=== PATIENT | female | born 1945 | race Caucasian/White ===

== ENCOUNTER → 2018-05-01 10:53 | Outpatient (CLI) | payer MEDICARE, BC, SELFPAY ==
--- NOTE | 2018-05-01 | DI.RAD.S_ITS ---
PROCEDURE: XR TOE RT MIN 2V INDICATIONS: RIGHT SMALL TOE PAIN AFTER TRAUMA TECHNIQUE: 3 views of the 5th toe(s) acquired. COMPARISON: None. FINDINGS: Bones: ? fracture of the fifth middle phalanx. No suspicious bony lesions. Soft tissues: No suspicious soft tissue densities. IMPRESSION: Possible fracture of the fifth middle phalanx. A followup examination is suggested in 7-10 days. Dictated by: Joshua Doll M.D. on 05/01/2018 at 13:07 Approved by: Joshua Doll M.D. on 05/01/2018 at 13:11
== END ==
PROVIDERS: PCP Family Medicine; Visit Provider Family Medicine
DX: M79.674 Pain in right toe(s) (principal)
CPT/HCPCS: 73660

== ENCOUNTER → 2018-05-18 14:14 | Outpatient (CLI) | payer MEDICARE, BC, SELFPAY ==
--- NOTE | 2018-05-18 | DI.RAD.S_ITS ---
This blank DEXA report has been sent in error by the PACS system. The correct and complete report will be forthcoming in 1-2 days. Thank you for your patience and understanding. Dictated by: Gary Yeager M.D. on 05/18/2018 at 15:14 Approved by: Gary Yeager M.D. on 05/18/2018 at 15:14
--- NOTE | 2018-05-18 | DI.RAD.S_ITS ---
PROCEDURE: XR FOOT RT 2V INDICATIONS: 5TH TOE PAIN TECHNIQUE: 3 views of the foot and fifth toe were acquired. COMPARISON: None. FINDINGS: Bones: Mild osteoarthritic changes in forefoot joint are seen more prominent involving first MTP joint. No fracture or dislocation. No gross bony erosive changes are suspicious bony lesion. Soft tissues: No gross soft tissue abnormality is seen. No abnormal calcification. IMPRESSION: Mild forefoot joint osteoarthritis. No fracture or dislocation. No gross bony erosive changes. Dictated by: Gary Yeager M.D. on 05/18/2018 at 15:15 Approved by: Gary Yeager M.D. on 05/18/2018 at 15:16
== END ==
PROVIDERS: PCP Family Medicine; Visit Provider Family Medicine
DX: Z13.820 Encounter for screening for osteoporosis (principal); M81.0 Age-related osteoporosis without current pathological fracture; Z78.0 Asymptomatic menopausal state; M79.674 Pain in right toe(s); M19.071 Primary osteoarthritis, right ankle and foot; Z87.891 Personal history of nicotine dependence
CPT/HCPCS: 73660; 77080

== ENCOUNTER → 2018-06-03 08:49 | Outpatient (CLI) | payer MEDICARE, BC, SELFPAY ==
--- NOTE | 2018-06-03 | DI.MG.S_ITS ---
BILATERAL DIGITAL SCREENING MAMMOGRAM 3D/2D WITH CAD: 06/03/2018 CLINICAL: Routine screening. Family history of breast cancer. Comparison is made to exams dated: 03/16/2017 mammogram, 02/15/2016 mammogram - [facility], and 01/02/2015 mammogram - [facility]. The tissue of both breasts is heterogeneously dense. This may lower the sensitivity of mammography. Current study was also evaluated with a Computer Aided Detection (CAD) system. There is a focal asymmetry in the left breast at 1 o'clock middle depth. No other significant masses, calcifications, or other findings are seen in either breast. IMPRESSION: INCOMPLETE: NEEDS ADDITIONAL IMAGING EVALUATION The focal asymmetry in the left breast is indeterminate. Additional views with possible ultrasound are recommended. This exam was interpreted at Station ID: [id number]. NOTE: For mammograms, a report in lay terms will be sent to the patient. Approximately 15% of breast malignancies will not be visualized mammographically. In the management of a palpable breast mass, a negative mammogram must not discourage biopsy of a clinically suspicious lesion. Electronically Signed By: Meche martinez/ajay:06/04/2018 08:35:31 letter sent: Additional Imaging Needed ACR BI-RADS Category 0: Incomplete 3340F
== END ==
PROVIDERS: PCP Family Medicine; Visit Provider Family Medicine
DX: Z12.31 Encounter for screening mammogram for malignant neoplasm of breast (principal); Z80.3 Family history of malignant neoplasm of breast
CPT/HCPCS: 77063; 77067

== ENCOUNTER → 2018-06-23 12:56 | Outpatient (CLI) | payer MEDICARE, BC, SELFPAY ==
--- NOTE | 2018-06-23 | DI.MG.S_ITS ---
UNILATERAL LEFT DIGITAL DIAGNOSTIC MAMMOGRAM 3D/2D WITH ADDITIONAL VIEWS: 06/23/2018 CLINICAL: Additional evaluation requested from prior study. Comparison is made to exams dated: 06/03/2018 mammogram, 03/16/2017 mammogram, and 02/15/2016 mammogram - [facility]. The tissue of left breast is heterogeneously dense. This may lower the sensitivity of mammography. The focal asymmetry in the left breast at 1 o'clock posterior depth is not seen in additional views. No other significant masses or calcifications are seen in the breast. IMPRESSION: There is no mammographic evidence of malignancy. A 1 year screening mammogram is recommended. This exam was interpreted at Station ID: [id number]. NOTE: For mammograms, a report in lay terms will be sent to the patient. Approximately 15% of breast malignancies will not be visualized mammographically. In the management of a palpable breast mass, a negative mammogram must not discourage biopsy of a clinically suspicious lesion. Electronically Signed By: Meche Cleveland M.D. lk/:06/23/2018 13:52:19 letter sent: Normal Exam ACR BI-RADS Category 2: Benign Finding(s) 3342F
== END ==
PROVIDERS: PCP Family Medicine; Visit Provider Family Medicine
DX: R92.8 Other abnormal and inconclusive findings on diagnostic imaging of breast (principal)
CPT/HCPCS: 77065; G0279

== ENCOUNTER → 2018-08-25 12:35 | Outpatient (CLI) | payer MEDICARE, BC, SELFPAY ==
--- NOTE | 2018-08-25 | DI.RAD.S_ITS ---
PROCEDURE: XR LUMBAR SPINE 2-3V INDICATIONS: lOW BACK PAIN TECHNIQUE: 3 views of the lumbar spine were acquired. COMPARISON: [facility], , L-SPINE 2-3 VIEWS, 05/01/2012, 10:01. FINDINGS: Bones: 5 [id number] vertebrae are present. There is normal bony alignment. No vertebral body compression fractures. No suspicious bony lesions. There is mild to moderate facet sclerosis in the lower lumbar spine. Soft tissues: Overlying bowel gas pattern is normal. No suspicious soft tissue calcifications. IMPRESSION: Mild degenerative change. Dictated by: Meche Cleveland M.D. on 08/25/2018 at 13:46 Approved by: Meche Cleveland M.D. on 08/25/2018 at 13:46
== END ==
PROVIDERS: PCP Family Medicine; Visit Provider Family Medicine
DX: M54.5 Low back pain (principal); M47.816 Spondylosis without myelopathy or radiculopathy, lumbar region
CPT/HCPCS: 72100

== ENCOUNTER 2018-12-27 12:06 | Emergency (ER) | payer MEDICARE, BC, SELFPAY ==
[2018-12-27 12:12] VITALS: BP 132/70; PULSE 68; RESP 13; TEMP 36.2; O2SAT 99
[2018-12-27 12:25] VITALS: BP 138/75; PULSE 69; RESP 17; O2SAT 97
--- NOTE | 2018-12-27 12:40 | ED.BACK ---
HPI - Back Pain/Injury <VALERIE Aponte - Last Filed: 12/27/18 13:37> General Chief Complaint: Back Pain/Injury Stated Complaint: Hurt lower back down both legs Time Seen by Provider: 12/27/18 12:15 Source: patient Mode of arrival: ambulatory Limitations: no limitations History of Present Illness HPI Narrative: 73-year-old female with a history of sacral fractures 20 years ago, presents emergency department complaining of dull aching lower back pain that radiates down both legs bilaterally. She states the pain is worse when she sits for a prolonged period of time, slightly relieved when she walks hunched over, has been taking 400 mg of ibuprofen every 6 hours for the past 2 and half days with relief of pain up until today. Patient stated this all started when she was mowing her lawn on a riding lawnmower, she states that she has about a care of property that she was attending to. Also states the pain is worse in the morning. Denies any numbness or tingling down her legs, leg pain, limb weakness, loss of bowel or bladder control, saddle paresthesias, fevers or chills, or recent trauma. MD Complaint: back pain Onset (ago): day(s) Duration: intermittent Similar Symptoms Previously: No Location: thoracic spine and sacrum Severity: moderate Quality: dull and aching Radiation: left leg and right leg Relieving factors: walking Exacerbating factors: sitting upright Associated symptoms: denies other symptoms Related Data Home Medications Medication Instructions Recorded Confirmed estradiol-norethindrone acet 1 tab PO DAILY 12/27/18 12/27/18 ibandronate 150 mg PO QMONTH 12/27/18 12/27/18 trazodone 50 - 75 mg PO BEDTIME PRN 12/27/18 12/27/18 Allergies Allergy/AdvReac Type Severity Reaction Status Date / Time bacitracin [BACITRACIN] Allergy Mild Unverified 09/23/17 11:57 Review of Systems <VALERIE Aponte - Last Filed: 12/27/18 13:37> Review of Systems REVIEW OF SYSTEMS: GENERAL: Denies fever or chills. HENT: No head trauma. EYES: No double vision or vision loss. CARDIOVASCULAR: No chest pain or syncope. RESPIRATORY: No shortness of breath or cough. GASTROINTESTINAL: No nausea, vomiting, diarrhea, or constipation. GENITOURINARY: No loss of bowel or bladder control. MUSCULOSKELETAL: Complains of back pain, see HPI. INTEGUMENTARY: No rash, lesions, or pruritus. NEURO: No numbness, tingling. PSYCH: No behavior or mood changes. PFSH <VALERIE Aponte - Last Filed: 12/27/18 13:37> Surgical History History of third molar tooth extraction Status post tonsillectomy and adenoidectomy Social History Smoking Status: Never smoker Social History Smoking Status: Never smoker Exam <VALERIE Aponte - Last Filed: 12/27/18 13:37> Initial Vital Signs Initial Vital Signs: Vital Signs Temperature 97.2 F L 12/27/18 12:12 Pulse Rate 68 12/27/18 12:12 Respiratory Rate 13 12/27/18 12:12 Blood Pressure 132/70 12/27/18 12:12 Pulse Oximetry 99 12/27/18 12:12 PHYSICAL EXAMINATION: GENERAL: Well groomed, alert, and cooperative. Answers questions promptly and appropriately. Vital signs noted. HENT: Normocephalic, atraumatic. EYES: Symmetrical, sclera white, no periorbital swelling. CARDIOVASCULAR: S1 and S2 sounds normal. Regular rate and rhythm, no murmurs, clicks, or bruits. No pedal edema. RESPIRATORY: Normal respiratory rate, trachea midline, airway patent. No stridor, nasal flaring or accessory muscle use. MUSCULOSKELETAL: Normal gait and coordination. Equal tone and mass bilaterally. No spinal deformities, slight pain to mid thoracic and sacral spine with palpation. Full range of motion of spine, full equal strength of extremities bilaterally. Able to sit and stand without difficulty. No erythema or ecchymosis present. Negative straight leg test. EXTREMITIES: CMS intact. No pedal edema. SKIN: Warm, dry, soft, appropriate color for ethnicity. No lesions, rashes, or wounds. NEURO: Alert and Oriented X 3. No sensory deficits. PSYCH: Appropriate affect and mood. <Ernie Juan DO - Last Filed: 12/27/18 13:49> Initial Vital Signs Initial Vital Signs: Vital Signs Temperature 97.2 F L 12/27/18 12:12 Pulse Rate 68 12/27/18 12:12 Respiratory Rate 13 12/27/18 12:12 Blood Pressure 132/70 12/27/18 12:12 Pulse Oximetry 99 12/27/18 12:12 Course <VALERIE Aponte - Last Filed: 12/27/18 13:37> Course Narrative: Patient states she has an appointment with her primary care provider in the next hour and a half. She was given copies of her x-rays to bring your primary care provider. Results were given of x-rays, patient under said follow-up plan. Orders Ordered: ED Orders 12/27/18 12:38 XR lumbar spine 2-3V Stat XR thoracic spine 3V Stat Discontinued Medications Ketorolac Tromethamine (Toradol) 30 mg IM NOW ONE Stop: 12/27/18 12:40 Last Admin: 12/27/18 12:55 Dose: 30 mg Consultations Consultation #1: Patient staffed with Dr. Juan Vital Signs - 8 hr 12/27/18 12:12 12/27/18 12:25 12/27/18 13:42 Temperature 97.2 F L Pulse Rate 68 69 72 Respiratory Rate 13 17 18 Blood Pressure 132/70 121/76 Blood Pressure [Right Arm] 138/75 Pulse Oximetry 99 97 99 <Ernie Juan DO - Last Filed: 12/27/18 13:49> Orders Ordered: ED Orders 12/27/18 12:38 XR lumbar spine 2-3V Stat XR thoracic spine 3V Stat Discontinued Medications Ketorolac Tromethamine (Toradol) 30 mg IM NOW ONE Stop: 12/27/18 12:40 Last Admin: 12/27/18 12:55 Dose: 30 mg Vital Signs - 8 hr 12/27/18 12:12 12/27/18 12:25 12/27/18 13:42 Temperature 97.2 F L Pulse Rate 68 69 72 Respiratory Rate 13 17 18 Blood Pressure 132/70 121/76 Blood Pressure [Right Arm] 138/75 Pulse Oximetry 99 97 99 MDM - Back Pain/Injury <VALERIE Aponte - Last Filed: 12/27/18 13:37> Medical Records Attestation: I reviewed the patient's medical records. Imaging Data Lumbar XR: Radiologist's impression: [address] [address] XRay Report Signed Patient: Vilma Jones [facility]#: [id number] : 6Acct:[id number] Age/Sex: 73 / FDate of Service: 12/27/18 Loc: ED Accession Number: [id number] Procedure: XR lumbar spine 2-3V Ordering Provider: Shireen Tesfaye PROCEDURE: XR LUMBAR SPINE 2-3V INDICATIONS: Spinal pain with palpitations TECHNIQUE: 3 views of the lumbar spine were acquired. COMPARISON: [facility], , XR LUMBAR SPINE 2-3V, 08/25/2018, 12:49. FINDINGS: Bones: 5 nonrib-bearing lumbar vertebral bodies. No lytic or blastic bony lesions. No compression fractures Normal alignment. Mild lower lumbar facet arthropathy. Soft tissues: Overlying bowel gas pattern is normal. No suspicious soft tissue calcifications. IMPRESSION: No evidence acute bony abnormality of the lumbar spine. Mild lower lumbar facet arthropathy. Dictated by: Naresh Real M.D. on 12/27/2018 at 13:07 Approved by: Naresh Real M.D. on 12/27/2018 at 13:08 Thorasic XR: Radiologist's impression: [address] [address] XRay Report Signed Patient: Vilma Jones [facility]#: [id number] : 6At:[id number] Age/Sex: 73 / FDate of Service: 12/27/18 Loc: ED Accession Number: [id number] Procedure: XR thoracic spine 3V Ordering Provider: Shireen Tesfaye PROCEDURE: XR THORACIC SPINE 3V INDICATIONS: Spinal pain with palpitations TECHNIQUE: 3 views of the thoracic spine were acquired. COMPARISON: None. FINDINGS: Bones: No fractures or dislocations. No suspicious bony lesions. Mild chronic T5 and T10 compressions. 12 pairs of ribs are noted, and appear intact where visualized. Soft tissues: No paravertebral stripe thickening. IMPRESSION: Mild chronic T5 and T10 compressions. Otherwise unremarkable thoracic spine plain films. Dictated by: Naresh Real M.D. on 12/27/2018 at 13:08 Approved by: Naresh Real M.D. on 12/27/2018 at 13:09 [facility] Narrative Medical decision making narrative: Less likely fracture due to negative x-ray in patient's ability to ambulate without severe pain, as well as mechanism of injury. Sciatica versus spinal disc involvement due to description of pain, x-ray films, and history of facet arthritic change, as well as history of chronic fractures. Encouraged patient to follow up with her primary care provider for further testing if symptoms continue. Strict return precautions given for any changes or saddle paresthesias. Very little concern for cauda equina or infection as there are no sensory changes, no weakness, no other systemic complaints (he fever, chills). Discharge Plan Departure Patient Disposition: Home Clinical Impression: Back pain Qualifiers: Back pain location: low back pain Chronicity: acute Back pain laterality: midline Sciatica presence: unspecified whether sciatica present Qualified Code(s): M54.5 - Low back pain Discharge Date/Time: 12/27/18 13:46 Interventions: ED Discharge Assessment Last Done: 12/27/18 13:42 Instructions: DI for Low Back Pain Activity Restrictions/Additional Instructions: Thank you for entrusting me with your care today. As discussed, your x-rays are negative for new fractures. It did reveal that your chronic fractures are not changed. Please follow up with your primary care provider to discuss further imaging if needed and for physical therapy. Return to the emergency department if you develops significant change in pain, loss of bowel or bladder control, fevers, numbness or tingling in her pelvic area, chest pain, or shortness of breath. Prescriptions: No Action trazodone 50 mg tablet 50 - 75 mg PO BEDTIME PRN (Reason: depression) RF: 0 ibandronate 150 mg tablet 150 mg PO QMONTH RF: 0 estradiol-norethindrone acet 0.5-0.1 mg tablet 1 tab PO DAILY RF: 0 Referrals: Joslyn Garner MD [Primary Care Provider] - <Ernie Juan DO - Last Filed: 12/27/18 13:49> Cosign ED Attending [place] Attestation: I was available for consultation during this patient's emergency department encounter
--- NOTE | 2018-12-27 12:43 | ED_ITS ---
HPI - Back Pain/Injury <VALERIE Aponte - Last Filed: 12/27/18 13:37> General Chief Complaint: Back Pain/Injury Stated Complaint: Hurt lower back down both legs Time Seen by Provider: 12/27/18 12:15 Source: patient Mode of arrival: ambulatory Limitations: no limitations History of Present Illness HPI Narrative: 73-year-old female with a history of sacral fractures 20 years ago, presents emergency department complaining of dull aching lower back pain that radiates down both legs bilaterally. She states the pain is worse when she sits for a prolonged period of time, slightly relieved when she walks hunched over, has been taking 400 mg of ibuprofen every 6 hours for the past 2 and half days with relief of pain up until today. Patient stated this all started when she was mowing her lawn on a riding lawnmower, she states that she has about a care of property that she was attending to. Also states the pain is worse in the morning. Denies any numbness or tingling down her legs, leg pain, limb weakness, loss of bowel or bladder control, saddle paresthesias, fevers or chills, or recent trauma. MD Complaint: back pain Onset (ago): day(s) Duration: intermittent Similar Symptoms Previously: No Location: thoracic spine and sacrum Severity: moderate Quality: dull and aching Radiation: left leg and right leg Relieving factors: walking Exacerbating factors: sitting upright Associated symptoms: denies other symptoms Related Data Home Medications Medication Instructions Recorded Confirmed estradiol-norethindrone acet 1 tab PO DAILY 12/27/18 12/27/18 ibandronate 150 mg PO QMONTH 12/27/18 12/27/18 trazodone 50 - 75 mg PO BEDTIME PRN 12/27/18 12/27/18 Allergies Allergy/AdvReac Type Severity Reaction Status Date / Time bacitracin [BACITRACIN] Allergy Mild Unverified 09/23/17 11:57 Review of Systems <VALERIE Aponte - Last Filed: 12/27/18 13:37> Review of Systems REVIEW OF SYSTEMS: GENERAL: Denies fever or chills. HENT: No head trauma. EYES: No double vision or vision loss. CARDIOVASCULAR: No chest pain or syncope. RESPIRATORY: No shortness of breath or cough. GASTROINTESTINAL: No nausea, vomiting, diarrhea, or constipation. GENITOURINARY: No loss of bowel or bladder control. MUSCULOSKELETAL: Complains of back pain, see HPI. INTEGUMENTARY: No rash, lesions, or pruritus. NEURO: No numbness, tingling. PSYCH: No behavior or mood changes. PFSH <VALERIE Aponte - Last Filed: 12/27/18 13:37> Surgical History History of third molar tooth extraction Status post tonsillectomy and adenoidectomy Social History Smoking Status: Never smoker Social History Smoking Status: Never smoker Exam <VALERIE Aponte - Last Filed: 12/27/18 13:37> Initial Vital Signs Initial Vital Signs: Vital Signs Temperature 97.2 F L 12/27/18 12:12 Pulse Rate 68 12/27/18 12:12 Respiratory Rate 13 12/27/18 12:12 Blood Pressure 132/70 12/27/18 12:12 Pulse Oximetry 99 12/27/18 12:12 PHYSICAL EXAMINATION: GENERAL: Well groomed, alert, and cooperative. Answers questions promptly and appropriately. Vital signs noted. HENT: Normocephalic, atraumatic. EYES: Symmetrical, sclera white, no periorbital swelling. CARDIOVASCULAR: S1 and S2 sounds normal. Regular rate and rhythm, no murmurs, clicks, or bruits. No pedal edema. RESPIRATORY: Normal respiratory rate, trachea midline, airway patent. No stridor, nasal flaring or accessory muscle use. MUSCULOSKELETAL: Normal gait and coordination. Equal tone and mass bilaterally. No spinal deformities, slight pain to mid thoracic and sacral spine with palpation. Full range of motion of spine, full equal strength of extremities bilaterally. Able to sit and stand without difficulty. No erythema or ecchymosis present. Negative straight leg test. EXTREMITIES: CMS intact. No pedal edema. SKIN: Warm, dry, soft, appropriate color for ethnicity. No lesions, rashes, or wounds. NEURO: Alert and Oriented X 3. No sensory deficits. PSYCH: Appropriate affect and mood. <Ernie Juan DO - Last Filed: 12/27/18 13:49> Initial Vital Signs Initial Vital Signs: Vital Signs Temperature 97.2 F L 12/27/18 12:12 Pulse Rate 68 12/27/18 12:12 Respiratory Rate 13 12/27/18 12:12 Blood Pressure 132/70 12/27/18 12:12 Pulse Oximetry 99 12/27/18 12:12 Course <VALERIE Aponte - Last Filed: 12/27/18 13:37> Course Narrative: Patient states she has an appointment with her primary care provider in the next hour and a half. She was given copies of her x-rays to bring your primary care provider. Results were given of x-rays, patient under said follow-up plan. Orders Ordered: ED Orders 12/27/18 12:38 XR lumbar spine 2-3V Stat XR thoracic spine 3V Stat Discontinued Medications Ketorolac Tromethamine (Toradol) 30 mg IM NOW ONE Stop: 12/27/18 12:40 Last Admin: 12/27/18 12:55 Dose: 30 mg Consultations Consultation #1: Patient staffed with Dr. Juan Vital Signs - 8 hr 12/27/18 12:12 12/27/18 12:25 12/27/18 13:42 Temperature 97.2 F L Pulse Rate 68 69 72 Respiratory Rate 13 17 18 Blood Pressure 132/70 121/76 Blood Pressure [Right Arm] 138/75 Pulse Oximetry 99 97 99 <Ernie Juan DO - Last Filed: 12/27/18 13:49> Orders Ordered: ED Orders 12/27/18 12:38 XR lumbar spine 2-3V Stat XR thoracic spine 3V Stat Discontinued Medications Ketorolac Tromethamine (Toradol) 30 mg IM NOW ONE Stop: 12/27/18 12:40 Last Admin: 12/27/18 12:55 Dose: 30 mg Vital Signs - 8 hr 12/27/18 12:12 12/27/18 12:25 12/27/18 13:42 Temperature 97.2 F L Pulse Rate 68 69 72 Respiratory Rate 13 17 18 Blood Pressure 132/70 121/76 Blood Pressure [Right Arm] 138/75 Pulse Oximetry 99 97 99 MDM - Back Pain/Injury <VALERIE Aponte - Last Filed: 12/27/18 13:37> Medical Records Attestation: I reviewed the patient's medical records. Imaging Data Lumbar XR: Radiologist's impression: [address] [address] XRay Report Signed Patient: Vilma Jones [facility]#: [id number] : 6Acct:[id number] Age/Sex: 73 / FDate of Service: 12/27/18 Loc: ED Accession Number: [id number] Procedure: XR lumbar spine 2-3V Ordering Provider: Shireen Tesfaye PROCEDURE: XR LUMBAR SPINE 2-3V INDICATIONS: Spinal pain with palpitations TECHNIQUE: 3 views of the lumbar spine were acquired. COMPARISON: [facility], , XR LUMBAR SPINE 2-3V, 08/25/2018, 12:49. FINDINGS: Bones: 5 nonrib-bearing lumbar vertebral bodies. No lytic or blastic bony lesions. No compression fractures Normal alignment. Mild lower lumbar facet arthropathy. Soft tissues: Overlying bowel gas pattern is normal. No suspicious soft tissue calcifications. IMPRESSION: No evidence acute bony abnormality of the lumbar spine. Mild lower lumbar facet arthropathy. Dictated by: Naresh Real M.D. on 12/27/2018 at 13:07 Approved by: Naresh Real M.D. on 12/27/2018 at 13:08 Thorasic XR: Radiologist's impression: [address] [address] XRay Report Signed Patient: Vilma Jones [facility]#: [id number] : 6At:[id number] Age/Sex: 73 / FDate of Service: 12/27/18 Loc: ED Accession Number: [id number] Procedure: XR thoracic spine 3V Ordering Provider: Shireen Tesfaye PROCEDURE: XR THORACIC SPINE 3V INDICATIONS: Spinal pain with palpitations TECHNIQUE: 3 views of the thoracic spine were acquired. COMPARISON: None. FINDINGS: Bones: No fractures or dislocations. No suspicious bony lesions. Mild chronic T5 and T10 compressions. 12 pairs of ribs are noted, and appear intact where visualized. Soft tissues: No paravertebral stripe thickening. IMPRESSION: Mild chronic T5 and T10 compressions. Otherwise unremarkable thoracic spine plain films. Dictated by: Naresh Real M.D. on 12/27/2018 at 13:08 Approved by: Naresh Real M.D. on 12/27/2018 at 13:09 [facility] Narrative Medical decision making narrative: Less likely fracture due to negative x-ray in patient's ability to ambulate without severe pain, as well as mechanism of injury. Sciatica versus spinal disc involvement due to description of pain, x- ray films, and history of facet arthritic change, as well as history of chronic fractures. Encouraged patient to follow up with her primary care provider for further testing if symptoms continue. Strict return precautions given for any changes or saddle paresthesias. Very little concern for cauda equina or infection as there are no sensory changes, no weakness, no other systemic complaints (he fever, chills). Discharge Plan Departure Patient Disposition: Home Clinical Impression: Back pain Qualifiers: Back pain location: low back pain Chronicity: acute Back pain laterality: midline Sciatica presence: unspecified whether sciatica present Qualified Code(s): M54.5 - Low back pain Discharge Date/Time: 12/27/18 13:46 Interventions: ED Discharge Assessment Last Done: 12/27/18 13:42 Instructions: DI for Low Back Pain Activity Restrictions/Additional Instructions: Thank you for entrusting me with your care today. As discussed, your x-rays are negative for new fractures. It did reveal that your chronic fractures are not changed. Please follow up with your primary care provider to discuss further imaging if needed and for physical therapy. Return to the emergency department if you develops significant change in pain, loss of bowel or bladder control, fevers, numbness or tingling in her pelvic area, chest pain, or shortness of breath. Prescriptions: No Action trazodone 50 mg tablet 50 - 75 mg PO BEDTIME PRN (Reason: depression) RF: 0 ibandronate 150 mg tablet 150 mg PO QMONTH RF: 0 estradiol-norethindrone acet 0.5-0.1 mg tablet 1 tab PO DAILY RF: 0 Referrals: Joslyn Garner MD [Primary Care Provider] - <Ernie Juan DO - Last Filed: 12/27/18 13:49> Cosign ED Attending [place] Attestation: I was available for consultation during this patient's emergency department encounter
[2018-12-27] MEDS: KETOROLAC 60 MG/2 ML VIAL 30 MG IM (12:55)
[2018-12-27 13:42] VITALS: BP 121/76; PULSE 72; RESP 18; O2SAT 99
== END 2018-12-27 13:46 | disposition home or self-care (01) ==
PROVIDERS: Emergency Provider Nurse Practitioner; PCP Family Medicine
DX: M54.5 Low back pain (principal)
CPT/HCPCS: 72072; 72100; 96372; 99282; 99283; J1885

== ENCOUNTER → 2019-01-06 17:25 | Outpatient (CLI) | payer MEDICARE, BC, SELFPAY ==
--- NOTE | 2019-01-06 | DI.MRI.S_ITS ---
PROCEDURE: MR LUMBAR SPINE WO CON INDICATIONS: LUMBAR RADICULOPATHY TECHNIQUE: Noncontrast sagittal T1 spin echo and T2 fast echo, sagittal STIR, axial T1 and T2 fast spin echo through the lumbar spine. In cases with scoliosis, additional coronal T2 fast spin echo may be performed. COMPARISON: None. FINDINGS: Image quality: Excellent. Alignment and Curvature: There is normal bony alignment. Bone Marrow: Marrow is of normal overall signal. No acute vertebral body compression fractures. Spinal Cord: Conus medullaris terminates at the L1 level. Visualized cord demonstrates normal signal and size. Paraspinous Soft Tissues: No paravertebral masses. L1-L2: Normal appearance. L2-L3: Normal appearance. L3-L4: Normal appearance. L4-L5: Normal appearance except for a minimal degree of degenerative disc height reduction and slight disc desiccation. On axial imaging at this level there is moderately severe facet osteoarthritis and moderate ligamentum flavum hypertrophy. Posterior broad-based disc bulging is mild but slightly greater on the left than the right. Ligamentum flavum hypertrophy contributes to the presence of concentric spinal stenosis.. L5-S1: Normal appearance except for minimal degenerative disc height reduction and desiccation.. IMPRESSION: Overall there is only a relatively mild degree of degenerative disc disease and facet osteoarthritis, without disc herniation. The maxillary of spinal stenosis is centered at L4-L5 where a combination of disc disease and facet osteoarthritis combines to produce spinal and foraminal stenosis slightly greater on the left than the right. . Dictated by: Giovanny Morin M.D. on 01/07/2019 at 13:15 Approved by: Giovanny Morin M.D. on 01/07/2019 at 13:19
== END ==
PROVIDERS: Family Provider Family Medicine; PCP Family Medicine; Visit Provider Family Medicine
DX: M51.36 Other intervertebral disc degeneration, lumbar region (principal); M54.16 Radiculopathy, lumbar region; M48.061 Spinal stenosis, lumbar region without neurogenic claudication
CPT/HCPCS: 72148

== ENCOUNTER → 2019-07-22 12:30 | Outpatient (CLI) | payer MEDICARE, BC, SELFPAY ==
--- NOTE | 2019-07-22 | DI.MG.S_ITS ---
BILATERAL DIGITAL SCREENING MAMMOGRAM 3D/2D WITH CAD: 07/22/2019 CLINICAL: Routine screening. Family history of breast cancer. Comparison is made to exams dated: 06/03/2018 mammogram, 03/16/2017 mammogram, and 02/15/2016 mammogram - [facility]. The tissue of both breasts is heterogeneously dense. This may lower the sensitivity of mammography. Current study was also evaluated with a Computer Aided Detection (CAD) system. No significant masses, calcifications, or other findings are seen in either breast. There has been no significant interval change. IMPRESSION: NEGATIVE There is no mammographic evidence of malignancy. A 1 year screening mammogram is recommended. This exam was interpreted at Station ID: [id number]. NOTE: For mammograms, a report in lay terms will be sent to the patient. Approximately 15% of breast malignancies will not be visualized mammographically. In the management of a palpable breast mass, a negative mammogram must not discourage biopsy of a clinically suspicious lesion. Electronically Signed By: Meche martinez/ajay:07/22/2019 13:28:18 letter sent: Normal Exam ACR BI-RADS Category 1: Negative [id number]
== END ==
PROVIDERS: Family Provider Family Medicine; PCP Family Medicine; Referring Provider Family Medicine; Visit Provider Family Medicine
DX: Z12.31 Encounter for screening mammogram for malignant neoplasm of breast (principal); Z80.3 Family history of malignant neoplasm of breast; M81.0 Age-related osteoporosis without current pathological fracture; Z78.0 Asymptomatic menopausal state; Z87.891 Personal history of nicotine dependence
CPT/HCPCS: 77063; 77067; 77080

== ENCOUNTER 2020-01-27 13:28 | Emergency (ER) | payer MEDICARE, BC, SELFPAY ==
[2020-01-27 14:11] VITALS: BP 121/85; PULSE 86; RESP 18; TEMP 36.6; O2SAT 97; BMI 23.3
[2020-01-27] MEDS: TET,DIPH,PERTUSS(ACELL),VAC/PF 0.5 ML SYRINGE IM (15:35)
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
== END 2020-01-27 16:56 | disposition home or self-care (01) ==
PROVIDERS: Emergency Provider Nurse Practitioner Family; Family Provider Family Medicine; PCP Family Medicine
DX: S51.811A Laceration without foreign body of right forearm, initial encounter (principal); S50.811A Abrasion of right forearm, initial encounter; V18.2XXA Unspecified pedal cyclist injured in noncollision transport accident in nontraffic accident, initial encounter; Z23 Encounter for immunization
CPT/HCPCS: 90471; 99283; 90715

== ENCOUNTER → 2020-07-12 09:12 | Outpatient (CLI) | payer MEDICARE, BC, SELFPAY ==
[2020-07-12] MEDS: COVID-19 VACC #1, MRNA(MOD) 100 MCG/0.5 ML VIAL IM (09:19)
== END ==
PROVIDERS: Family Provider Family Medicine; PCP Family Medicine; Visit Provider Internal Medicine
DX: Z23 Encounter for immunization (principal)
CPT/HCPCS: 0011A; 91301

== ENCOUNTER → 2020-08-09 08:55 | Outpatient (CLI) | payer MEDICARE, BC, SELFPAY ==
[2020-08-09] MEDS: COVID-19 VACC #2, MRNA(MOD) 100 MCG/0.5 ML VIAL IM (09:01)
== END ==
PROVIDERS: Family Provider Family Medicine; PCP Family Medicine; Visit Provider Internal Medicine
DX: Z23 Encounter for immunization (principal)
CPT/HCPCS: 0012A; 91301

== ENCOUNTER → 2020-10-04 16:07 | Outpatient (CLI) | payer MEDICARE, BC, SELFPAY ==
--- NOTE | 2020-10-04 | DI.RAD.S_ITS ---
PROCEDURE: XR CERVICAL SPINE 2V OR 3V INDICATIONS: NECK PAIN TECHNIQUE: 3 view(s) of the cervical spine were acquired. COMPARISON: None. FINDINGS: Bones: No fractures or dislocations to the T1 level. The lateral masses of C1 appear intact on the odontoid view. No suspicious bony lesions. Loss of lordosis which could be related to muscle spasm, rigidity or simply positional. Grade 1 retrolisthesis C4-C5 and C5-C6. Multilevel disc degeneration, most notably and moderate from the C3 through the C6-C7 level. Mild multilevel facet joint arthropathy and uncovertebral hypertrophy. Soft tissues: No prevertebral soft tissue swelling. IMPRESSION: Loss of lordosis and multilevel spondylosis. Dictated by: Alonzo [place] [facility] Interpreted: Naresh Real MD on 10/05/2020 at 8:54 Approved by: Naresh Real M.D. on 10/05/2020 at 10:21
== END ==
PROVIDERS: Family Provider Family Medicine; PCP Family Medicine; Referring Provider Family Medicine; Visit Provider Family Medicine
DX: M54.2 Cervicalgia (principal); M47.812 Spondylosis without myelopathy or radiculopathy, cervical region; S46.819A Strain of other muscles, fascia and tendons at shoulder and upper arm level, unspecified arm, initial encounter
CPT/HCPCS: 72040

== ENCOUNTER → 2020-10-10 10:09 | Outpatient (CLI) | payer MEDICARE, BC, SELFPAY ==
--- NOTE | 2020-10-10 10:12 | DI.MG.S_ITS ---
BILATERAL DIGITAL SCREENING MAMMOGRAM 3D/2D WITH CAD: 10/10/2020 CLINICAL: Routine screening. Family history of breast cancer. Comparison is made to exams dated: 06/03/2018 mammogram, 03/16/2017 mammogram, and 02/15/2016 mammogram - [facility]. The tissue of both breasts is heterogeneously dense. This may lower the sensitivity of mammography. Current study was also evaluated with a Computer Aided Detection (CAD) system. There are grouped calcifications in the right breast which have not significantly changed. No significant masses, calcifications, or other findings are seen in either breast. There has been no significant interval change. IMPRESSION: BENIGN There is no mammographic evidence of malignancy. A 1 year screening mammogram is recommended. This exam was interpreted at Station ID: [id number]. NOTE: For mammograms, a report in lay terms will be sent to the patient. Approximately 15% of breast malignancies will not be visualized mammographically. In the management of a palpable breast mass, a negative mammogram must not discourage biopsy of a clinically suspicious lesion. Electronically Signed By: Law Rivera M.D. aty/:10/10/2020 10:33:33 letter sent: Normal Exam ACR BI-RADS Category 2: Benign Finding(s) 3342F
== END ==
PROVIDERS: Family Provider Family Medicine; PCP Family Medicine; Referring Provider Family Medicine; Visit Provider Family Medicine
DX: Z12.31 Encounter for screening mammogram for malignant neoplasm of breast (principal)
CPT/HCPCS: 77063; 77067

== ENCOUNTER → 2020-12-06 13:28 | Outpatient (CLI) | payer MEDICARE, BC, SELFPAY ==
--- NOTE | 2020-12-06 | DI.RAD.S_ITS ---
PROCEDURE: XR LUMBAR SPINE MIN 4V INDICATIONS: BACK PAIN TECHNIQUE: 5 views of the lumbar spine acquired, including flexion and extension views. COMPARISON: [facility], CR, XR LUMBAR SPINE 2-3V, 12/27/2018, 12:39. FINDINGS: Bones: 5 nonrib-bearing vertebrae are present. Trace multilevel retrolisthesis and grade 1 spondylolisthesis L4-L5. There is moderate L5-S1 disc degeneration. Moderate L4-L5 and L5-S1 facet joint arthropathy. Bones are osteopenic. No vertebral body compression fractures. No suspicious bony lesions. Soft tissues: Overlying bowel gas pattern is normal. No suspicious soft tissue calcifications. IMPRESSION: Multilevel spondylosis and diffuse osteopenia. Dictated by: Alonzo Wellington RR Interpreted: Giovanny Morin MD on 12/06/2020 at 13:49 Transcribed by: XANDER on 12/06/2020 at 13:50 Approved by: Giovanny Morin M.D. on 12/07/2020 at 9:32
== END ==
PROVIDERS: Family Provider Family Medicine; PCP Family Medicine; Referring Provider Physical Medicine & Rehabilitation; Visit Provider Physical Medicine & Rehabilitation
DX: M54.9 Dorsalgia, unspecified (principal); M47.816 Spondylosis without myelopathy or radiculopathy, lumbar region; M47.817 Spondylosis without myelopathy or radiculopathy, lumbosacral region; M85.88 Other specified disorders of bone density and structure, other site
CPT/HCPCS: 72110

== ENCOUNTER → 2020-12-31 09:49 | Outpatient (CLI) | payer MEDICARE, BC, SELFPAY ==
[2020-12-31 15:58] LABS: COVID19 -Nasal RAPID Negative (Negative)
== END ==
PROVIDERS: Family Provider Family Medicine; PCP Family Medicine; Visit Provider Physical Medicine & Rehabilitation
DX: Z20.822 Contact with and (suspected) exposure to COVID-19 (principal)
CPT/HCPCS: 87635; C9803

== ENCOUNTER 2021-01-01 08:06 | Outpatient (CLI) | payer MEDICARE, BC, SELFPAY ==
--- NOTE | 2021-01-01 08:08 | DI.RAD.S_ITS ---
PROCEDURE: PAIN L INTERLAMINAR/CAUDAL INJ INDICATIONS: SPONDYLOSIS COMPARISON: [facility], CR, XR LUMBAR SPINE MIN 4V, 12/06/2020, 13:27. FINDINGS: Fluoroscopic spot filming was performed to verify placement of a spinal needle at the L4-L5 level, as labeled on the films. Appropriate location of the needle tip was confirmed by injection of iodinated contrast. IMPRESSION: Intraprocedural examination within normal limits. Dictated by: Lizandro Tinajero M.D. on 01/01/2021 at 10:17 Approved by: Lizandro Tinajero M.D. on 01/01/2021 at 10:17
[2021-01-01 08:40] VITALS: BP 134/67; PULSE 68; RESP 15; TEMP 36.4; O2SAT 98
[2021-01-01 09:44] VITALS: BP 134/64; PULSE 14; RESP 12; O2SAT 100
[2021-01-01 09:53] VITALS: BP 134/64; PULSE 66; RESP 14; O2SAT 100
--- NOTE | 2021-01-01 09:57 | P.PCN_ITS ---
Date/Time/Diagnoses Date of procedure: 01/01/21 Time of procedure: 09:57 Pre-procedure diagnosis: 1. HNP WITH RADICULAR FEATURES, 2. MULTILEVEL CENTRAL STENOSIS, Post-procedure diagnosis: same Procedure Notes Procedure: 1. FLUOROSCOPICALLY GUIDED CONTRAST CONTROLLED INTERLAMINAR EPIDURAL STEROID INJECTION -L4/5 Indications: Vilma is referred by Dr. Garner for treatment of Bilateral Foraminal Stenosis R>L LE symptoms. Physician: Yaya Morgan Total Fluoroscopy time (seconds): 5 Total sedation minutes: 8 Complications: none Procedure in detail & Post-procedure care: FINDINGS Multilevel Central Spinal Stenosis with Nerve Root Compression DESCRIPTION OF PROCEDURE Fluoroscopically guided, contrast-controlled L4/5 translaminar epidural steroid injection. Following review of allergy and review of potential side effects and complications, including, but not necessarily limited to, infection, allergic reaction, local tissue breakdown, temporary as well as permanent nerve injury, paralysis, stroke and possible , the patient indicated that the patient understood and agreed to proceed. An informed consent document was signed by the patient, witnessed by a nurse, and placed in the patient's chart. Additionally, other treatment options including modalities, medications, and physical therapy were reviewed with the patient. After review of previous anaesthesic history and IV conscious sedation the patient was deemed safe to proceed with today?s procedure with IV conscious sedation as ASA class II designation. Safety time-out was performed to confirm patient ID, procedure to be performed and site of procedure. IV sedation was accomplished with a combination of 2mg of Versed and 50mcg of Fentanyl was administered by the RN after DO order, titrated to patient comfort during the course of the procedure while the patient remained responsive to all verbal commands In the prone position, following sterile prep and drape of the lumbar region, the L4/5 translaminar space was identified fluoroscopically. The skin was anesthetized via a 25-gauge, 1.5inch needle with 1% lidocaine solution. At this point, a 22-gauge short bevel spinal needle was atraumatically introduced and advanced under fluoroscopic guidance into the region of the L4/5 translaminar space. Depth was confirmed on lateral view. Radiological data, including multiple fluoroscopic views of the lumbar spine, reveal a spinal needle at the L4/5 translaminar space. Lateral views then show placement of the needle in the epidural space. Subsequent views show contrast material flowing superiorly and inferiorly in the epidural space. No vascular or intrathecal uptake is observed. At this point, using loss of resistance technique with saline and air, the epidural space was entered. This was confirmed following negative aspiration with injection of approximately 1.5cc of Isovue 200, showing excellent epidural flow without vascular or intrathecal uptake. At this point, 1cc of 1% lidocaine solution combined with 3cc or 20mg of dexamethasone and 6mg betamethasone was injected without incident. The patient tolerated the procedure well without signs or symptoms of complic ations prior to transfer to the recovery area continued monitoring without incident. The patient was then transferred to the recovery area where they were observed for an appropriate period of time after the injection. The patient reported a VAS score of 6 prior to the procedure and a post- procedure VAS of 0. POST OP INSTRUCTIONS The patient was provided a Pain Log to continue to record their response to the target-specific procedure prior to follow-up visit with their referring physician. Additionally, specific post-injection care instructions and a contact number to our office were provided if concerns arise regarding possible complications associated with the procedure are suspected.
[2021-01-01 10:02] VITALS: BP 105/59; PULSE 64; RESP 14; O2SAT 99
[2021-01-01 10:07] VITALS: BP 131/62; PULSE 68; RESP 12; O2SAT 99
[2021-01-01 10:12] VITALS: BP 135/60; PULSE 65; RESP 26; O2SAT 97
== END 2021-01-01 10:34 | disposition home or self-care (01) ==
LOC: RAD 08:07
PROVIDERS: Family Provider Family Medicine; PCP Family Medicine; Referring Provider Physical Medicine & Rehabilitation; Visit Provider Physical Medicine & Rehabilitation
DX: M51.16 Intervertebral disc disorders with radiculopathy, lumbar region (principal); M48.062 Spinal stenosis, lumbar region with neurogenic claudication
CPT/HCPCS: 62323; J0702; J1100; J2250; J3010

== ENCOUNTER → 2021-02-11 08:26 | Outpatient (CLI) | payer MEDICARE, BC, SELFPAY ==
[2021-02-11 13:01] LABS: COVID19 -Nasal RAPID Negative (Negative)
== END ==
PROVIDERS: Family Provider Family Medicine; PCP Family Medicine; Visit Provider Physical Medicine & Rehabilitation
DX: Z20.822 Contact with and (suspected) exposure to COVID-19 (principal)
CPT/HCPCS: 87635; C9803

== ENCOUNTER 2021-02-12 07:23 | Outpatient (CLI) | payer MEDICARE, BC, SELFPAY ==
[2021-02-12] VITALS (9 sets, daily range): BP systolic 98–141; BP diastolic 55–68; PULSE 64–75; RESP 13–22; TEMP 36.9; O2SAT 97–100
--- NOTE | 2021-02-12 07:25 | DI.RAD.S_ITS ---
PROCEDURE: PAIN L/S FACET INJ/BLK 1ST FRANDY COMPARISON: None. INDICATIONS: SPONDYLOSIS FINDINGS: Intraprocedural images demonstrate accessed needles at the bilateral L4-L5 and L5-S1 facet joints. IMPRESSION: Access needles localized to the bilateral L4-L5 and L5-S1 facet joints. Dictated by: Inna Teixeira MD, PhD on 02/12/2021 at 12:17 Approved by: Inna Teixeira MD, PhD on 02/12/2021 at 12:18
[2021-02-12] MEDS: MIDAZOLAM 5 MG/5 ML VIAL IV (08:20)
[2021-02-12] MEDS: fentaNYL 100 MCG/2 ML INJ 50 MCG IV (08:20)
[2021-02-12] MEDS: BETAMETHASONE 30 MG/5 ML MDV 12 MG INJ (08:27)
[2021-02-12] MEDS: BUPIVACAINE 0.5% (PF) VIAL 2 ML INJ (08:27)
[2021-02-12] MEDS: IOPAMIDOL 15 ML VIAL 3 ML INJ (08:27)
--- NOTE | 2021-02-12 08:36 | P.PCN_ITS ---
Date/Time/Diagnoses Date of procedure: 02/12/21 Time of procedure: 08:36 Pre-procedure diagnosis: 1. FACET ARTHROPATHY 2. AXIAL LBP 3. MULTILEVEL DDD Post-procedure diagnosis: same Procedure Notes Procedure: 1. FLUOROSCOPICALLY GUIDED CONTRAST CONTROLLED FACET JOINT INJECTIONS BILATERAL L4/5, L5/S1 Indications: Vilma is referred by Dr. Garner for treatment of Axial LBP Physician: Yaya Morgan Total Fluoroscopy time (seconds): 8 Total sedation minutes: 12 Complications: none Procedure in detail & Post-procedure care: FINDINGS Multilevel Facet Arthropathy with Clinically significant axial LBP DESCRIPTION OF PROCEDURE Fluoroscopically guided, contrast-controlled bilateral L4/5, L5/S1 facet joint injections. Following review of allergy and review of potential side effects and complications, including, but not necessarily limited to, infection, allergic reaction, local tissue breakdown, stroke, temporary or permanent nerve injury, paralysis, and possible , the patient indicated that the patient understood and agreed to proceed. An informed consent document was signed by the patient, witnessed by a nurse, and placed in the patient's chart. Additionally, other treatment options including medications, modalities, and physical therapy were reviewed with the patient. After review of previous anaesthesic history and IV conscious sedation the patient was deemed safe to proceed with today?s procedure with IV conscious sedation as ASA class II designation. Safety time-out was performed to confirm patient ID, procedure to be performed and site of procedure. IV sedation was accomplished with a combination of 2mg of Versed and 50mcg of Fentanyl was administered by the RN after DO order, titrated to patient comfort during the course of the procedure while the patient remained responsive to all verbal commands In the prone position, following sterile prep and drape of the lumbar region, the posterior aspect of the L4/5, L5/S1 facet joints were identified fluoroscopically. The skin was anesthetized via a 25-gauge 1.5inch needle with 1% lidocaine solution into the corresponding facet joints. At this point, a 22- gauge 3.5-inch spinal needle was atraumatically introduced and advanced under fluoroscopic guidance into the corresponding facet joints. Following negative aspiration, injections of approximately 0.2cc of Isovue 200 confirmed inter articular placement without vascular uptake. The identical procedure was then performed at the L4/5, L5/S1 facet joints on the left. Radiological data, including multiple fluoroscopic views of the lumbosacral spine, reveal a spinal needle at the L4/5, L5/S1 facet joints bilaterally. Subsequent views show flow of contrast material both superiorly and inferiorly within the joint space without vascular or intrathecal uptake. At this point, a total of 0.5cc including a mixture of 0.25cc Marcaine and 0.25cc betamethasone was injected without complication into each of the corresponding facet joints. The patient tolerated the procedure well without signs or symptoms of complications prior to transfer to the recovery area continued monitoring without incident. The patient was then transferred to the recovery area where they were observed for an appropriate period of time after the injection. The patient reported a VAS score of 7 prior to the procedure and a post- procedure VAS of 0. POST OP INSTRUCTIONS The patient was provided a Pain Log to continue to record their response to the target-specific procedure prior to follow-up visit with their referring physician. Additionally, specific post-injection care instructions and a contact number to our office were provided if concerns arise regarding possible complications associated with the procedure are suspected.
[2021-02-12] MEDS: LIDOCAINE 1% 20 ML INJ (08:45)
== END 2021-02-12 09:04 | disposition home or self-care (01) ==
PROVIDERS: Family Provider Family Medicine; PCP Family Medicine; Referring Provider Physical Medicine & Rehabilitation; Visit Provider Physical Medicine & Rehabilitation
DX: M47.817 Spondylosis without myelopathy or radiculopathy, lumbosacral region (principal); M47.816 Spondylosis without myelopathy or radiculopathy, lumbar region; M51.36 Other intervertebral disc degeneration, lumbar region; M51.37 Other intervertebral disc degeneration, lumbosacral region; M54.5 Low back pain
CPT/HCPCS: 64493; 64494; 99152; J0702; J2250; J3010

== ENCOUNTER 2021-08-08 08:04 | Outpatient (CLI) | payer MEDICARE, BC, SELFPAY | END 2021-08-09 17:00 | disposition home or self-care (01) | LOC: PHYS 08:06 | PROVIDERS: Family Provider Family Medicine; PCP Family Medicine; Referring Provider Family Medicine; Visit Provider Family Medicine | DX: G62.9 Polyneuropathy, unspecified (principal); M54.16 Radiculopathy, lumbar region | CPT/HCPCS: 77080; 95886; 95910 ==

== ENCOUNTER → 2021-08-08 09:38 | Outpatient (CLI) | payer MEDICARE, BC, SELFPAY ==
--- NOTE | 2021-08-08 | DI.RAD.S_ITS ---
PROCEDURE: XR DEXA AXIAL SKELETON INDICATIONS: Age-related osteoporosis COMPARISON: None. FINDINGS: This blank DEXA report has been sent in error by the PACS system. The correct and complete report will be forthcoming in 1-2 days. Thank you for your patience and understanding. Dictated by: Inna Teixeira MD, PhD on 08/08/2021 at 11:33 Approved by: Inna Teixeira MD, PhD on 08/08/2021 at 11:33
== END ==
PROVIDERS: Family Provider Family Medicine; PCP Family Medicine; Referring Provider Family Medicine; Visit Provider Family Medicine
DX: M81.0 Age-related osteoporosis without current pathological fracture (principal); Z78.0 Asymptomatic menopausal state; Z87.891 Personal history of nicotine dependence
CPT/HCPCS: 77080

== ENCOUNTER → 2021-09-02 14:10 | Outpatient (CLI) | payer MEDICARE, BC, SELFPAY ==
[2021-09-02 16:44] LABS: COVID19 -Nasal RAPID Negative (Negative)
== END ==
PROVIDERS: Family Provider Family Medicine; PCP Family Medicine; Visit Provider Physical Medicine & Rehabilitation
DX: Z20.822 Contact with and (suspected) exposure to COVID-19 (principal); M47.22 Other spondylosis with radiculopathy, cervical region; M48.062 Spinal stenosis, lumbar region with neurogenic claudication
CPT/HCPCS: 87635; 99214

== ENCOUNTER 2021-09-05 09:22 | Outpatient (CLI) | payer MEDICARE, BC, SELFPAY ==
[2021-09-05] VITALS (8 sets, daily range): BP systolic 114–129; BP diastolic 58–72; PULSE 70–76; RESP 14–20; TEMP 36.9; O2SAT 99–100
--- NOTE | 2021-09-05 09:25 | DI.RAD.S_ITS ---
PROCEDURE: PAIN L/S TRANSFORAMINAL INJECT INDICATIONS: SPONDYLOSIS COMPARISON: [facility], CR, XR LUMBAR SPINE MIN 4V, 12/06/2020, 13:27. FINDINGS: Fluoroscopic spot filming was performed to verify placement of spinal needles at the right L4-L5 level(s), as labeled on the films. Appropriate location(s) of the needle tip(s) was confirmed by injection of iodinated contrast. IMPRESSION: Fluoroscopy for pain management. Dictated by: Joshua Doll M.D. on 09/05/2021 at 11:22 Approved by: Joshua Doll M.D. on 09/05/2021 at 11:23
[2021-09-05] MEDS: MIDAZOLAM 2 MG/2 ML VIAL IV (10:50)
[2021-09-05] MEDS: BUPIVACAINE 0.25% (PF) VIAL 2 ML INJ (10:53)
[2021-09-05] MEDS: IOPAMIDOL 15 ML VIAL 3 ML INJ (10:53)
[2021-09-05] MEDS: BETAMETHASONE 30 MG/5 ML MDV 6 MG INJ (10:53)
[2021-09-05] MEDS: DEXAMETHASONE 10 MG/ML VIAL 20 MG INJ (10:54)
--- NOTE | 2021-09-05 11:03 | P.PCN_ITS ---
Date/Time/Diagnoses Date of procedure: 09/05/21 Time of procedure: 11:03 Pre-procedure diagnosis: 1. FORAMINAL STENOSIS WITH LE SYMPTOMS Post-procedure diagnosis: same Procedure Notes Procedure: 1. FLUOROSCOPICALLY GUIDED CONTRAST CONTROLLED TRANSFORAMINAL EPIDURAL STEROID INJECTION - RIGHT L4/5 TFESI Indications: Vilma is referred by Dr. Garner for treatment of Foraminal Stenosis with Right LE Symptoms Physician: Yaya Morgan Total Fluoroscopy time (seconds): 6 Total sedation minutes: 9 Complications: none Procedure in detail & Post-procedure care: FINDINGS Foraminal Nerve Root Compression secondary to disc disease and facet hypertrophy DESCRIPTION OF PROCEDURE Following review of allergy and review of potential side effects and complications, including, but not necessarily limited to, infection, allergic reaction, local tissue breakdown, stroke, temporary or permanent nerve injury, paralysis, and possible , the patient indicated that the patient understood and agreed to proceed. An informed consent document was signed by the patient, witnessed by a nurse, and placed in the patient's chart. Additionally, other treatment options including medications, modalities, and physical therapy were reviewed with the patient. After review of previous anaesthesic history and IV conscious sedation the patient was deemed safe to proceed with today?s procedure with IV conscious sedation as ASA class II designation. Safety time-out was performed to confirm patient ID, procedure to be performed and site of procedure. IV sedation was accomplished with a combination of 2mg of Versed was administered by the RN after DO order, titrated to patient comfort during the course of the procedure while the patient remained responsive to all verbal commands In the prone position following sterile prep and drape of the lumbar region, the right L4/5 posterior neuroforamen was identified fluoroscopically. The skin was anesthetized via a 25-gauge 1.5-inch needle with 1% lidocaine solution. At this point, a 25-gauge 3.5-inch spinal needle was atraumatically introduced and advanced under fluoroscopic guidance through the posterior right L4/5 neuroforamen to approximately the anterior aspect of the canal. Depth was confirmed on lateral view. Following negative aspiration, injection of approximately 1.5cc of Isovue 200 under live fluoroscopy in the AP view confirmed excellent flow along the nerve root, into the epidural space without vascular or intrathecal uptake observed Radiological data, including multiple fluoroscopic views of the lumbosacral sp ine, reveal a spinal needle at the right L4/5 posterior neuroforamen. Subsequent views show flow of contrast material flowing superiorly and inferiorly along the nerve root confirming epidural flow. Subsequently, a test dose of 1.5 cc of 1% lidocaine solution was administered and patient was observed for two minutes for signs or symptoms of complications, including abdominal pain, shortness of breath, bilateral upper or lower extremity weakness, nausea and vomiting, prior to steroid injection. At this point, a total of 3cc or 20mg of dexamethasone and 6mg of betamethasone was injected without incident. The procedure tolerated the procedure well without signs or symptoms of complications prior to transfer to the recovery area continued monitoring without incident. The patient was then transferred to the recovery area where they were observed for an appropriate time after the injection. The patient reported a VAS score of 7 prior to the procedure and a post- procedure VAS of 0. POST OP INSTRUCTIONS The patient was provided a Pain Log to continue to record their response to the target-specific procedure prior to follow-up visit with their referring physician. Additionally, specific post-injection care instructions and a contact number to our office were provided if concerns arise regarding possible complications associated with the procedure are suspected.
--- NOTE | 2021-09-05 12:38 | PC.NURSE ---
Patient does not have a ride home Dr Morgan is aware, Patient did have sedation. She refuses to take a taxi states that [place] and will walk home. Spoke with Dr Morgan and states that he is ok with her walking him but she needs to eat something and hand out for a while. Patient sat in the lobby for about an hour, had lunch. Checked back in with this RN Reports that she is going to walk home, Feels great, has no dizziness or lightheaded, is steady on feet, has been up walking around. This RN instructed no driving for 24 hours due to sedation medications. Patient left lobby around 12:40.
== END 2021-09-05 12:40 | disposition home or self-care (01) ==
LOC: RAD 09:25
PROVIDERS: Family Provider Family Medicine; PCP Family Medicine; Referring Provider Physical Medicine & Rehabilitation; Visit Provider Physical Medicine & Rehabilitation
DX: M48.061 Spinal stenosis, lumbar region without neurogenic claudication (principal); M51.16 Intervertebral disc disorders with radiculopathy, lumbar region
CPT/HCPCS: 64483; J0702; J1100; J2250; J3010

== ENCOUNTER 2021-10-09 10:15 | Outpatient (RCR) | payer MEDICARE, BC, SELFPAY ==
--- NOTE | 2021-09-16 17:37 | PT.OTN ---
Current Diagnoses Radiculopathy, lumbar region (09/16/21) Low back pain, unspecified (09/16/21) Other specified enthesopathies of unspecified lower limb, excluding foot (09/16/21) Physical Therapy Treatment Note PT-OP-A Visit Information Start: 09/16/21 17:04 Freq: Status: Active Protocol: Document 09/16/21 12:00 DCW (Rec: 09/16/21 17:37 [facility] [id number]) Out-Patient Physical Therapy Visit Information Visit Information Visit Type Initial Evaluation Visit Start Time 12:00 Visit Stop Time 12:45 Total Visit Minutes 45 Visit Number 1 Number of NUCLEAR SPECTROSCOPIST Visits 0 Evaluation Information Evaluation Date 09/16/21 PT-OP-B Current Condition Start: 09/16/21 17:04 Freq: Status: Active Protocol: Document 09/16/21 12:00 DCW (Rec: 09/16/21 17:37 [facility] [id number]) Current Condition History of Current Condition Onset Date Months, no specific onset date Current Complaints Low back pain, right posteriolateral hip pain, occasional thigh pain History of Current Condition Pt is a 76 year old female presenting with a months long history of low back and posteriolateral hip pain. Pt notes her pain can come and go , typically feels worse when first getting up in the morning or when standing up after extended sitting. Notes she recently completed a course of PT at [facility] in [place] after hurting her neck, and it's not better, but I have some tools now to help it. Reports a history of multiple low back fractures, the first being in the 60s or 70s, and the most recent then being in 1997. Pt reports she has been tightening up since last , and her pain increases with attempted lifting. Had some injections ages ago, with unclear effect , and then again two weeks ago , which she doesn't feel helped at all. Admits she is not a good patient, and struggles to do her exercises that she got from the Ortho she saw. PT-OP-C Subjective Start: 09/16/21 17:04 Freq: Status: Active Protocol: Document 09/16/21 12:00 DCW (Rec: 09/16/21 17:37 DCW [id number]) OP-PT Subjective Patient Comments Patient Comments I know I'm not good about doing home exercises. I always feel better when I do them, and I still just don't do them . I really need to work on that. Patient Questionnaires Lower Extremity Functional Scale LEFS Score 49/80 = 61.25% LEFS Impairment 20 to 39% Impaired (Score 48- 62) OP-PT Pain Assessment Pain Assessment Grid Paper Pain Assessment Grid Completed Yes: See scanned chart PT-OP-F Manual Assessment Start: 09/16/21 17:04 Freq: Status: Active Protocol: Document 09/16/21 12:00 DCW (Rec: 09/16/21 17:37 DCW [id number]) Manual Assessments Soft Tissue Assessment Soft Tissue Mobility Assessment Moderate tone with tenderness to palpation 3/4: Wincing and withdraw along right piriformis Mild-moderate tone with tenderness to palpation 2/4: Pain with wincing along bilateral lumbar paraspinals and QL Joint Mobility Assessment Joint Mobility Assessment Hypotonia along lumbar spine with joint mobilization PT-OP-L Special Tests Start: 09/16/21 17:04 Freq: Status: Active Protocol: Document 09/16/21 12:00 DCW (Rec: 09/16/21 17:37 DCW [id number]) Special Tests Lumbar Spine Special Tests Straight Leg Raise Test Results Negative Slump Test Results Negative ALTON Test Results Negative Compression Test Results Negative A-P Shearing Test Results Negative Hip Special Tests Piriformis Test Results Positive R PT-OP-M Strength Start: 09/16/21 17:04 Freq: Status: Active Protocol: Document 09/16/21 12:00 DCW (Rec: 09/16/21 17:37 DCW [id number]) Trunk Strength Trunk Manual Muscle Testing Core Stabilization Good core/TrA contraction with PPT, hold well with instruction. 4/5 PT-OP-Q Treatments Start: 09/16/21 17:04 Freq: Status: Active Protocol: Document 09/16/21 12:00 DCW (Rec: 09/16/21 17:37 DCW [id number]) Therapeutic Exercises Supine Exercises 5 Supine Exercise Name Bridging 4 Supine Exercise Name PPT /c TrA contraction 3 Supine Exercise Name LTR Side bilateral 2 Supine Exercise Name single->double KtC Side bilateral 1 Supine Exercise Name Piriformis stretch - knee-to- opposite shoulder Side bilateral PT-OP-T Assessment and Plan Start: 09/16/21 17:04 Freq: Status: Active Protocol: Document 09/16/21 12:00 DEBO (Rec: 09/16/21 17:37 [facility] [id number]) Physical Therapy Assessment Rehab Potential Rehabilitation Potential Good Evaluation Complexity Number of Personal Factors/Comorbidities 1-2 Number of Body Systems Impaired 1-2 Clinical Presentation at Evaluation Stable Impairments Impairments Functional Activities, Functional Mobility,Pain,Soft Tissue Mobility,Strength,Tone Goals Two Impairment Pt unable to lift gardening supplies without increased back pain Irrigator Valve Pipe Goal (LTG) Pt to report ability to spend >90 minutes outside performing gardening and lifting without experiencing increased back pain. 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 Pt's biggest limiting factor with rehab at this time will be her admitted difficulty performing her HEP at home. Pt will greatly benefit from a regular stretching / flexibility program, as well as gentle LE and core strengthening. Pt responded very well to performing stretching HEP already during her eval, and will hopefully be motivated to continue program independently. Physical Therapy Plan Frequency and Duration Frequency of Treatment 2x/Week Duration of Treatment Two months Plan of Care Start Date 09/16/21 Plan of Care End Date 11/16/21 Therapeutic Interventions Therapeutic Interventions Balance Training,Home Exercise Program,Joint Mobilizations, Manual Therapy,Patient/ Caregiver Education,Self-Care/ Home Management,Soft Tissue Mobilization,Therapeutic Activities,Therapeutic Exercises Modalities Cold Pack/Ice Massage,Electric Stimulation,Hot Packs Next Visit Focus/Plan Next Note Type Treatment Note Next Visit Plan STM, Joint mobs, Flexibility/ stretching
--- NOTE | 2021-09-16 17:41 | PT.OIE ---
Current Diagnoses Radiculopathy, lumbar region (09/16/21) Low back pain, unspecified (09/16/21) Other specified enthesopathies of unspecified lower limb, excluding foot (09/16/21) Past Medical History (Last Reviewed 09/02/21 @ 14:01 by Yaya Morgan DO) Arthropathy of lumbosacral facet joint Closed T11 fracture Lumbar stenosis with neurogenic claudication Lumbosacral radiculopathy at L5 Past Surgical History (Last Reviewed 09/02/21 @ 14:01 by Yaya Morgan DO) History of third molar tooth extraction Status post tonsillectomy and adenoidectomy Visit Care Team Role Provider Type Joslyn Garner MD Attending Provider Physician Family Provider Primary Care Provider Referring Provider Specialty: Family Practice Address: [address] [place] [address], [facility] Email: [email or web address] Physical Therapy Initial Evaluation PT-OP-A Visit Information Start: 09/16/21 17:04 Freq: Status: Active Protocol: Document 09/16/21 12:00 DCW (Rec: 09/16/21 17:37 [facility] [id number]) Out-Patient Physical Therapy Visit Information Visit Information Visit Type Initial Evaluation Visit Start Time 12:00 Visit Stop Time 12:45 Total Visit Minutes 45 Visit Number 1 Number of MOTOR ADJUSTER Visits 0 Evaluation Information Evaluation Date 09/16/21 PT-OP-B Current Condition Start: 09/16/21 17:04 Freq: Status: Active Protocol: Document 09/16/21 12:00 DCW (Rec: 09/16/21 17:37 [facility] [id number]) Current Condition History of Current Condition Onset Date Months, no specific onset date Current Complaints Low back pain, right posteriolateral hip pain, occasional thigh pain History of Current Condition Pt is a 76 year old female presenting with a months long history of low back and posteriolateral hip pain. Pt notes her pain can come and go , typically feels worse when first getting up in the morning or when standing up after extended sitting. Notes she recently completed a course of PT at [facility] in [place] after hurting her neck, and it's not better, but I have some tools now to help it. Reports a history of multiple low back fractures, the first being in the 60s or 70s, and the most recent then being in 1997. Pt reports she has been tightening up since last , and her pain increases with attempted lifting. Had some injections ages ago, with unclear effect , and then again two weeks ago , which she doesn't feel helped at all. Admits she is not a good patient, and struggles to do her exercises that she got from the Ortho she saw. PT-OP-C Subjective Start: 09/16/21 17:04 Freq: Status: Active Protocol: Document 09/16/21 12:00 DCW (Rec: 09/16/21 17:37 DCW [id number]) OP-PT Subjective Patient Comments Patient Comments I know I'm not good about doing home exercises. I always feel better when I do them, and I still just don't do them . I really need to work on that. Patient Questionnaires Lower Extremity Functional Scale LEFS Score 49/80 = 61.25% LEFS Impairment 20 to 39% Impaired (Score 48- 62) OP-PT Pain Assessment Pain Assessment Grid Paper Pain Assessment Grid Completed Yes: See scanned chart PT-OP-F Manual Assessment Start: 09/16/21 17:04 Freq: Status: Active Protocol: Document 09/16/21 12:00 DCW (Rec: 09/16/21 17:37 DCW [id number]) Manual Assessments Soft Tissue Assessment Soft Tissue Mobility Assessment Moderate tone with tenderness to palpation 3/4: Wincing and withdraw along right piriformis Mild-moderate tone with tenderness to palpation 2/4: Pain with wincing along bilateral lumbar paraspinals and QL Joint Mobility Assessment Joint Mobility Assessment Hypotonia along lumbar spine with joint mobilization PT-OP-L Special Tests Start: 09/16/21 17:04 Freq: Status: Active Protocol: Document 09/16/21 12:00 DCW (Rec: 09/16/21 17:37 DCW [id number]) Special Tests Lumbar Spine Special Tests Straight Leg Raise Test Results Negative Slump Test Results Negative ALTON Test Results Negative Compression Test Results Negative A-P Shearing Test Results Negative Hip Special Tests Piriformis Test Results Positive R PT-OP-M Strength Start: 09/16/21 17:04 Freq: Status: Active Protocol: Document 09/16/21 12:00 DCW (Rec: 09/16/21 17:37 DCW [id number]) Trunk Strength Trunk Manual Muscle Testing Core Stabilization Good core/TrA contraction with PPT, hold well with instruction. 4/5 PT-OP-Q Treatments Start: 09/16/21 17:04 Freq: Status: Active Protocol: Document 09/16/21 12:00 DCW (Rec: 09/16/21 17:37 [facility] [id number]) Therapeutic Exercises Supine Exercises 5 Supine Exercise Name Bridging 4 Supine Exercise Name PPT /c TrA contraction 3 Supine Exercise Name LTR Side bilateral 2 Supine Exercise Name single->double KtC Side bilateral 1 Supine Exercise Name Piriformis stretch - knee-to- opposite shoulder Side bilateral PT-OP-T Assessment and Plan Start: 09/16/21 17:04 Freq: Status: Active Protocol: Document 09/16/21 12:00 DCW (Rec: 09/16/21 17:37 [facility] [id number]) Physical Therapy Assessment Rehab Potential Rehabilitation Potential Good Evaluation Complexity Number of Personal Factors/Comorbidities 1-2 Number of Body Systems Impaired 1-2 Clinical Presentation at Evaluation Stable Impairments Impairments Functional Activities, Functional Mobility,Pain,Soft Tissue Mobility,Strength,Tone Goals Two Impairment Pt unable to lift gardening supplies without increased back pain Prison Goal (LTG) Pt to report ability to spend >90 minutes outside performing gardening and lifting without experiencing increased back pain. 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 Pt's biggest limiting factor with rehab at this time will be her admitted difficulty performing her HEP at home. Pt will greatly benefit from a regular stretching / flexibility program, as well as gentle LE and core strengthening. Pt responded very well to performing stretching HEP already during her eval, and will hopefully be motivated to continue program independently. Physical Therapy Plan Frequency and Duration Frequency of Treatment 2x/Week Duration of Treatment Two months Plan of Care Start Date 09/16/21 Plan of Care End Date 11/16/21 Therapeutic Interventions Therapeutic Interventions Balance Training,Home Exercise Program,Joint Mobilizations, Manual Therapy,Patient/ Caregiver Education,Self-Care/ Home Management,Soft Tissue Mobilization,Therapeutic Activities,Therapeutic Exercises Modalities Cold Pack/Ice Massage,Electric Stimulation,Hot Packs Next Visit Focus/Plan Next Note Type Treatment Note Next Visit Plan STM, Joint mobs, Flexibility/ stretching
--- NOTE | 2021-09-16 17:41 | PT.OPPOC ---
Physical, Occupational & Speech Therapy At [facility] Current Diagnoses Radiculopathy, lumbar region (09/16/21) Low back pain, unspecified (09/16/21) Other specified enthesopathies of unspecified lower limb, excluding foot (09/16/21) Visit Care Team Role Provider Type Joslyn Garner MD Attending Provider Physician Family Provider Primary Care Provider Referring Provider Specialty: Family Practice Address: [address] [place] [address] [place], [facility] Email: Plan Of Care PT-OP-T Assessment and Plan Start: 09/16/21 17:04 Freq: Status: Active Protocol: Document 09/16/21 12:00 DCW (Rec: 09/16/21 17:37 DCW [id number]) Physical Therapy Assessment Rehab Potential Rehabilitation Potential Good Evaluation Complexity Number of Personal Factors/Comorbidities 1-2 Number of Body Systems Impaired 1-2 Clinical Presentation at Evaluation Stable Impairments Impairments Functional Activities, Functional Mobility,Pain,Soft Tissue Mobility,Strength,Tone Goals Two Impairment Pt unable to lift gardening supplies without increased back pain Alf Goal (LTG) Pt to report ability to spend >90 minutes outside performing gardening and lifting without experiencing increased back pain. 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 Pt's biggest limiting factor with rehab at this time will be her admitted difficulty performing her HEP at home. Pt will greatly benefit from a regular stretching / flexibility program, as well as gentle LE and core strengthening. Pt responded very well to performing stretching HEP already during her eval, and will hopefully be motivated to continue program independently. Physical Therapy Plan Frequency and Duration Frequency of Treatment 2x/Week Duration of Treatment Two months Plan of Care Start Date 09/16/21 Plan of Care End Date 11/16/21 Therapeutic Interventions Therapeutic Interventions Balance Training,Home Exercise Program,Joint Mobilizations, Manual Therapy,Patient/ Caregiver Education,Self-Care/ Home Management,Soft Tissue Mobilization,Therapeutic Activities,Therapeutic Exercises Modalities Cold Pack/Ice Massage,Electric Stimulation,Hot Packs Next Visit Focus/Plan Next Note Type Treatment Note Next Visit Plan STM, Joint mobs, Flexibility/ stretching Plan of Care Dates Plan of Care Start Date 09/16/21 Plan of Care End Date 11/16/21 Electronically Signed by: Milton Fair, PT 09/16/21 [id number] Please Sign and Return: I have reviewed this Plan of Care and certify that the skilled therapy services above are required to meet the patient?s needs. Physician Signature Date Printed Name and Credentials Clinical Instructor Signature Printed Name and Credentials
--- NOTE | 2021-09-18 11:15 | PT.OTN ---
Current Diagnoses Radiculopathy, lumbar region (09/18/21) Low back pain, unspecified (09/18/21) Other specified enthesopathies of unspecified lower limb, excluding foot (09/18/21) Physical Therapy Treatment Note PT-OP-A Visit Information Start: 09/16/21 17:04 Freq: Status: Active Protocol: Document 09/18/21 10:30 DCW (Rec: 09/18/21 11:15 DCW [id number]) Out-Patient Physical Therapy Visit Information Visit Information Visit Type Treatment Note Visit Start Time 10:30 Visit Stop Time 11:15 Total Visit Minutes 45 Visit Number 2 Number of BAND TIER Visits 0 Evaluation Information Evaluation Date 09/16/21 PT-OP-B Current Condition Start: 09/16/21 17:04 Freq: Status: Active Protocol: Document 09/16/21 12:00 DCW (Rec: 09/16/21 17:37 DCW [id number]) Current Condition History of Current Condition Onset Date Months, no specific onset date Current Complaints Low back pain, right posteriolateral hip pain, occasional thigh pain History of Current Condition Pt is a 76 year old female presenting with a months long history of low back and posteriolateral hip pain. Pt notes her pain can come and go , typically feels worse when first getting up in the morning or when standing up after extended sitting. Notes she recently completed a course of PT at [facility] in [place] after hurting her neck, and it's not better, but I have some tools now to help it. Reports a history of multiple low back fractures, the first being in the 60s or 70s, and the most recent then being in 1997. Pt reports she has been tightening up since last , and her pain increases with attempted lifting. Had some injections ages ago, with unclear effect , and then again two weeks ago , which she doesn't feel helped at all. Admits she is not a good patient, and struggles to do her exercises that she got from the Ortho she saw. PT-OP-C Subjective Start: 09/16/21 17:04 Freq: Status: Active Protocol: Document 09/18/21 10:30 DCW (Rec: 09/18/21 11:15 DCW [id number]) OP-PT Subjective Patient Comments Patient Comments I partially did my stretching this morning. 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 PT-OP-L Special Tests Start: 09/16/21 17:04 Freq: Status: Active Protocol: Document 09/16/21 12:00 DCW (Rec: 09/16/21 17:37 DCW [id number]) Special Tests Lumbar Spine Special Tests Straight Leg Raise Test Results Negative Slump Test Results Negative ALTON Test Results Negative Compression Test Results Negative A-P Shearing Test Results Negative Hip Special Tests Piriformis Test Results Positive R PT-OP-M Strength Start: 09/16/21 17:04 Freq: Status: Active Protocol: Document 09/16/21 12:00 DCW (Rec: 09/16/21 17:37 DCW [id number]) Trunk Strength Trunk Manual Muscle Testing Core Stabilization Good core/TrA contraction with PPT, hold well with instruction. 4/5 PT-OP-Q Treatments Start: 09/16/21 17:04 Freq: Status: Active Protocol: Document 09/18/21 10:30 DCW (Rec: 09/18/21 11:15 DCW [id number]) Cardio Equipment Recumbent Elliptical ([employer]) Duration (Minutes) 5 Resistance 4 Seat Position 8 Gym Equipment Therapeutic Ball 2 Exercise Details Resisted hip flexion Ball Size/Color Red - 55 cm Lv 2 T-band Body Position Supine 1 Exercise Details LTR Ball Size/Color Red - 55 cm Body Position Supine Therapeutic Exercises Supine Exercises 1 Supine Exercise Name Piriformis stretch - knee-to- opposite shoulder Side bilateral Sidelying Exercises 3 Sidelying Exercise Name Hip Abduction Side bilateral 2 Sidelying Exercise Name Reverse Clamshell Side bilateral 1 Sidelying Exercise Name Clamshell Side bilateral Manual Therapy Treatment Soft Tissue Mobilization 1 Body Location R Piriformis Mobilization Type Sustained Pressure,Trigger Point Release Intensity/Depth Moderate Body Position Sidelying PT-OP-T Assessment and Plan Start: 09/16/21 17:04 Freq: Status: Active Protocol: Document 09/18/21 10:30 DCW (Rec: 09/18/21 11:15 DCW [id number]) Physical Therapy Assessment Impairments Impairments Functional Activities, Functional Mobility,Pain,Soft Tissue Mobility,Strength,Tone Goals Two Impairment Pt unable to lift gardening supplies without increased back pain Correction Goal (LTG) Pt to report ability to spend >90 minutes outside performing gardening and lifting without experiencing increased back pain. LTG Duration 11/16/21 One Impairment Pt does not have an appropriate home exercise program Short Term Goal (STG) Pt to be independent and compliant with an appropriate HEP STG Duration 10/16/21 Assessment Summary Assessment Pt tolerated treatment fairly well today, decreased tone following stretching and STM. Pt reports she will try very hard to be better with her HEP compliance. Physical Therapy Plan Frequency and Duration Frequency of Treatment 2x/Week Duration of Treatment Two months Plan of Care Start Date 09/16/21 Plan of Care End Date 11/16/21 Therapeutic Interventions Therapeutic Interventions Balance Training,Home Exercise Program,Joint Mobilizations, Manual Therapy,Patient/ Caregiver Education,Self-Care/ Home Management,Soft Tissue Mobilization,Therapeutic Activities,Therapeutic Exercises Modalities Cold Pack/Ice Massage,Electric Stimulation,Hot Packs Next Visit Focus/Plan Next Note Type Treatment Note Next Visit Plan STM, Joint mobs, Flexibility/ stretching
--- NOTE | 2021-09-23 11:00 | PT.OTN ---
Current Diagnoses Radiculopathy, lumbar region (09/23/21) Low back pain, unspecified (09/23/21) Other specified enthesopathies of unspecified lower limb, excluding foot (09/23/21) Physical Therapy Treatment Note PT-OP-A Visit Information Start: 09/16/21 17:04 Freq: Status: Active Protocol: Document 09/23/21 10:12 MA (Rec: 09/23/21 11:00 MA [id number]) Out-Patient Physical Therapy Visit Information Visit Information Visit Type Treatment Note Visit Start Time 10:15 Visit Stop Time 10:55 Total Visit Minutes 40 Visit Number 3 Number of MICA PATCHER Visits 1 PT-OP-B Current Condition Start: 09/16/21 17:04 Freq: Status: Active Protocol: Document 09/16/21 12:00 DCW (Rec: 09/16/21 17:37 DCW [id number]) Current Condition History of Current Condition Onset Date Months, no specific onset date Current Complaints Low back pain, right posteriolateral hip pain, occasional thigh pain History of Current Condition Pt is a 76 year old female presenting with a months long history of low back and posteriolateral hip pain. Pt notes her pain can come and go , typically feels worse when first getting up in the morning or when standing up after extended sitting. Notes she recently completed a course of PT at [facility] in [place] after hurting her neck, and it's not better, but I have some tools now to help it. Reports a history of multiple low back fractures, the first being in the 60s or 70s, and the most recent then being in 1997. Pt reports she has been tightening up since last , and her pain increases with attempted lifting. Had some injections ages ago, with unclear effect , and then again two weeks ago , which she doesn't feel helped at all. Admits she is not a good patient, and struggles to do her exercises that she got from the Ortho she saw. PT-OP-C Subjective Start: 09/16/21 17:04 Freq: Status: Active Protocol: Document 09/23/21 10:12 MA (Rec: 09/23/21 11:00 MA [id number]) OP-PT Subjective Patient Comments Patient Comments Pt states she has been doing her HEP now. She is always more stiff in the morning but feels her pain is getting better overall. 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 PT-OP-L Special Tests Start: 09/16/21 17:04 Freq: Status: Active Protocol: Document 09/16/21 12:00 DCW (Rec: 09/16/21 17:37 DCW [id number]) Special Tests Lumbar Spine Special Tests Straight Leg Raise Test Results Negative Slump Test Results Negative ALTON Test Results Negative Compression Test Results Negative A-P Shearing Test Results Negative Hip Special Tests Piriformis Test Results Positive R PT-OP-M Strength Start: 09/16/21 17:04 Freq: Status: Active Protocol: Document 09/16/21 12:00 DCW (Rec: 09/16/21 17:37 DCW [id number]) Trunk Strength Trunk Manual Muscle Testing Core Stabilization Good core/TrA contraction with PPT, hold well with instruction. 4/5 PT-OP-Q Treatments Start: 09/16/21 17:04 Freq: Status: Active Protocol: Document 09/23/21 10:12 MA (Rec: 09/23/21 11:00 MA [id number]) Cardio Equipment Recumbent Elliptical ([employer]) Duration (Minutes) 5 Resistance 4 Seat Position 8 Gym Equipment Therapeutic Ball 2 Exercise Details Resisted hip flexion Ball Size/Color Red - 55 cm Lv 2 T-band Body Position Supine 1 Exercise Details LTR Ball Size/Color Red - 55 cm Body Position Supine Therapeutic Exercises Supine Exercises 5 Supine Exercise Name Bridging 3 Supine Exercise Name LTR Side bilateral 2 Supine Exercise Name single->double KtC Side bilateral 1 Supine Exercise Name Piriformis stretch - knee-to- opposite shoulder Side bilateral Sidelying Exercises 3 Sidelying Exercise Name Hip Abduction Side bilateral Reps/Minutes x10 Comments added to HEP 2 Sidelying Exercise Name Reverse Clamshell Side bilateral Reps/Minutes x10 Comments added to HEP 1 Sidelying Exercise Name Clamshell Side bilateral Reps/Minutes x10 Comments added to HEP Manual Therapy Treatment Soft Tissue Mobilization 1 Body Location R Piriformis Mobilization Type Sustained Pressure,Trigger Point Release Intensity/Depth Moderate Body Position Sidelying PT-OP-T Assessment and Plan Start: 09/16/21 17:04 Freq: Status: Active Protocol: Document 09/23/21 10:12 MA (Rec: 09/23/21 11:00 MA [id number]) Physical Therapy Assessment Goals Two Impairment Pt unable to lift gardening supplies without increased back pain Laundry Washer Goal (LTG) Pt to report ability to spend >90 minutes outside performing gardening and lifting without experiencing increased back pain. LTG Duration 11/16/21 One Impairment Pt does not have an appropriate home exercise program Short Term Goal (STG) Pt to be independent and compliant with an appropriate HEP STG Duration 10/16/21 Assessment Summary Assessment Pt feels stiff initially when starting session but reports feeling looser after PT. She requires moderate cues during SL hip abd to avoid rolling posteriorly. Added in SL clamshell, reverse clamshell, and hip abd to HEP. Physical Therapy Plan Frequency and Duration Frequency of Treatment 2x/Week Duration of Treatment Two months Plan of Care Start Date 09/16/21 Plan of Care End Date 11/16/21 Therapeutic Interventions Therapeutic Interventions Balance Training,Home Exercise Program,Joint Mobilizations, Manual Therapy,Patient/ Caregiver Education,Self-Care/ Home Management,Soft Tissue Mobilization,Therapeutic Activities,Therapeutic Exercises Modalities Cold Pack/Ice Massage,Electric Stimulation,Hot Packs Next Visit Focus/Plan Next Note Type Treatment Note Next Visit Plan Assess response to new HEP: SL clamshell, reverse clamshell, and hip abd. STM, Joint mobs, Flexibility/ stretching
--- NOTE | 2021-09-25 11:11 | PT.OTN ---
Current Diagnoses Radiculopathy, lumbar region (09/25/21) Low back pain, unspecified (09/25/21) Other specified enthesopathies of unspecified lower limb, excluding foot (09/25/21) Physical Therapy Treatment Note PT-OP-A Visit Information Start: 09/16/21 17:04 Freq: Status: Active Protocol: Document 09/25/21 10:30 DCW (Rec: 09/25/21 11:11 DCW [id number]) Out-Patient Physical Therapy Visit Information Visit Information Visit Type Treatment Note Visit Start Time 10:30 Visit Stop Time 11:15 Total Visit Minutes 45 Visit Number 4 Number of CEMETERY WORKERS SUPERVISOR Visits 0 Evaluation Information Evaluation Date 09/16/21 PT-OP-B Current Condition Start: 09/16/21 17:04 Freq: Status: Active Protocol: Document 09/16/21 12:00 DCW (Rec: 09/16/21 17:37 DCW [id number]) Current Condition History of Current Condition Onset Date Months, no specific onset date Current Complaints Low back pain, right posteriolateral hip pain, occasional thigh pain History of Current Condition Pt is a 76 year old female presenting with a months long history of low back and posteriolateral hip pain. Pt notes her pain can come and go , typically feels worse when first getting up in the morning or when standing up after extended sitting. Notes she recently completed a course of PT at [facility] in [place] after hurting her neck, and it's not better, but I have some tools now to help it. Reports a history of multiple low back fractures, the first being in the 60s or 70s, and the most recent then being in 1997. Pt reports she has been tightening up since last , and her pain increases with attempted lifting. Had some injections ages ago, with unclear effect , and then again two weeks ago , which she doesn't feel helped at all. Admits she is not a good patient, and struggles to do her exercises that she got from the Ortho she saw. PT-OP-C Subjective Start: 09/16/21 17:04 Freq: Status: Active Protocol: Document 09/25/21 10:30 DCW (Rec: 09/25/21 11:11 DCW [id number]) OP-PT Subjective Patient Comments Patient Comments I've been fine, but after doing my stretches this morning, I actually felt tighter. I went for a walk, and things have mostly loosened up. 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 PT-OP-L Special Tests Start: 09/16/21 17:04 Freq: Status: Active Protocol: Document 09/16/21 12:00 DCW (Rec: 09/16/21 17:37 DCW [id number]) Special Tests Lumbar Spine Special Tests Straight Leg Raise Test Results Negative Slump Test Results Negative ALTON Test Results Negative Compression Test Results Negative A-P Shearing Test Results Negative Hip Special Tests Piriformis Test Results Positive R PT-OP-M Strength Start: 09/16/21 17:04 Freq: Status: Active Protocol: Document 09/16/21 12:00 DCW (Rec: 09/16/21 17:37 DCW [id number]) Trunk Strength Trunk Manual Muscle Testing Core Stabilization Good core/TrA contraction with PPT, hold well with instruction. 4/5 PT-OP-Q Treatments Start: 09/16/21 17:04 Freq: Status: Active Protocol: Document 09/25/21 10:30 DCW (Rec: 09/25/21 11:11 DCW [id number]) Cardio Equipment Recumbent Elliptical (Biodex) Duration (Minutes) 5 Resistance 4 Seat Position 8 Gym Equipment Therapeutic Ball 3 Exercise Details Pelvic tilt/circles Ball Size/Color Green - 65 cm Body Position Sitting 1 Exercise Details LTR Ball Size/Color Red - 55 cm Body Position Supine Therapeutic Exercises Supine Exercises 3 Supine Exercise Name LTR Side bilateral 1 Supine Exercise Name Piriformis stretch - knee-to- opposite shoulder Side bilateral Sidelying Exercises 3 Sidelying Exercise Name Hip Abduction Side bilateral Reps/Minutes x10 Comments added to HEP 2 Sidelying Exercise Name Reverse Clamshell Side bilateral Reps/Minutes x10 Comments added to HEP 1 Sidelying Exercise Name Clamshell Side bilateral Reps/Minutes x10 Comments added to HEP Other Exercises 1 Other Exercise Name Resisted side-stepping Resistance Red T-band Manual Therapy Treatment Soft Tissue Mobilization 1 Body Location R Piriformis Mobilization Type Sustained Pressure,Trigger Point Release Intensity/Depth Moderate Body Position Sidelying PT-OP-T Assessment and Plan Start: 09/16/21 17:04 Freq: Status: Active Protocol: Document 09/25/21 10:30 DCW (Rec: 09/25/21 11:11 DCW [id number]) Physical Therapy Assessment Impairments Impairments Functional Activities, Functional Mobility,Pain,Soft Tissue Mobility,Strength,Tone Goals Two Impairment Pt unable to lift gardening supplies without increased back pain Tube Test Technician Goal (LTG) Pt to report ability to spend >90 minutes outside performing gardening and lifting without experiencing increased back pain. LTG Duration 11/16/21 One Impairment Pt does not have an appropriate home exercise program Short Term Goal (STG) Pt to be independent and compliant with an appropriate HEP STG Duration 10/16/21 Assessment Summary Assessment Pt did well today, motivated with performance of HEP, tolerates all treatment very well. Physical Therapy Plan Frequency and Duration Frequency of Treatment 2x/Week Duration of Treatment Two months Plan of Care Start Date 09/16/21 Plan of Care End Date 11/16/21 Therapeutic Interventions Therapeutic Interventions Balance Training,Home Exercise Program,Joint Mobilizations, Manual Therapy,Patient/ Caregiver Education,Self-Care/ Home Management,Soft Tissue Mobilization,Therapeutic Activities,Therapeutic Exercises Modalities Cold Pack/Ice Massage,Electric Stimulation,Hot Packs Next Visit Focus/Plan Next Note Type Treatment Note Next Visit Plan Assess response to new HEP: SL clamshell, reverse clamshell, and hip abd. STM, Joint mobs, Flexibility/ stretching
--- NOTE | 2021-09-30 10:18 | PT.OTN ---
Current Diagnoses Radiculopathy, lumbar region (09/30/21) Low back pain, unspecified (09/30/21) Other specified enthesopathies of unspecified lower limb, excluding foot (09/30/21) Physical Therapy Treatment Note PT-OP-A Visit Information Start: 09/16/21 17:04 Freq: Status: Active Protocol: Document 09/30/21 09:15 MA (Rec: 09/30/21 10:18 MA [id number]) Out-Patient Physical Therapy Visit Information Visit Information Visit Type Treatment Note Visit Start Time 09:20 Visit Stop Time 10:15 Total Visit Minutes 55 Visit Number 5 Number of NECK CUTTER Visits 1 PT-OP-B Current Condition Start: 09/16/21 17:04 Freq: Status: Active Protocol: Document 09/16/21 12:00 DCW (Rec: 09/16/21 17:37 DCW [id number]) Current Condition History of Current Condition Onset Date Months, no specific onset date Current Complaints Low back pain, right posteriolateral hip pain, occasional thigh pain History of Current Condition Pt is a 76 year old female presenting with a months long history of low back and posteriolateral hip pain. Pt notes her pain can come and go , typically feels worse when first getting up in the morning or when standing up after extended sitting. Notes she recently completed a course of PT at [facility] in [place] after hurting her neck, and it's not better, but I have some tools now to help it. Reports a history of multiple low back fractures, the first being in the 60s or 70s, and the most recent then being in 1997. Pt reports she has been tightening up since last , and her pain increases with attempted lifting. Had some injections ages ago, with unclear effect , and then again two weeks ago , which she doesn't feel helped at all. Admits she is not a good patient, and struggles to do her exercises that she got from the Ortho she saw. PT-OP-C Subjective Start: 09/16/21 17:04 Freq: Status: Active Protocol: Document 09/30/21 09:15 MA (Rec: 09/30/21 10:18 MA [id number]) OP-PT Subjective Patient Comments Patient Comments I am not doing well today. 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 PT-OP-L Special Tests Start: 09/16/21 17:04 Freq: Status: Active Protocol: Document 09/16/21 12:00 DCW (Rec: 09/16/21 17:37 DCW [id number]) Special Tests Lumbar Spine Special Tests Straight Leg Raise Test Results Negative Slump Test Results Negative ALTON Test Results Negative Compression Test Results Negative A-P Shearing Test Results Negative Hip Special Tests Piriformis Test Results Positive R PT-OP-M Strength Start: 09/16/21 17:04 Freq: Status: Active Protocol: Document 09/16/21 12:00 DCW (Rec: 09/16/21 17:37 DCW [id number]) Trunk Strength Trunk Manual Muscle Testing Core Stabilization Good core/TrA contraction with PPT, hold well with instruction. 4/5 PT-OP-Q Treatments Start: 09/16/21 17:04 Freq: Status: Active Protocol: Document 09/30/21 09:15 MA (Rec: 09/30/21 10:18 MA [id number]) Cardio Equipment Recumbent Elliptical (PlaySay) Duration (Minutes) 5 Resistance 4 Seat Position 8 Therapeutic Exercises Supine Exercises 1 Supine Exercise Name Piriformis stretch - knee-to- opposite shoulder Side bilateral Sidelying Exercises 2 Sidelying Exercise Name Reverse Clamshell Side bilateral Reps/Minutes x10 Comments added to HEP 1 Sidelying Exercise Name Clamshell Side bilateral Reps/Minutes x10 Comments added to HEP Other Exercises Self-STM Other Exercise Name 1. Tennis ball to glute med in standing 2. rolling pin to ITB seated Side right Reps/Minutes 5' Comments Added to HEP Manual Therapy Treatment Soft Tissue Mobilization 1 Body Location R Piriformis, R ITB Mobilization Type Sustained Pressure,Trigger Point Release Intensity/Depth Moderate Body Position Sidelying Comments with active ER PT-OP-R Modalities Start: 09/16/21 17:04 Freq: Status: Active Protocol: Document 09/30/21 09:15 MA (Rec: 09/30/21 10:18 MA [id number]) Hot Pack/Cold Pack Treatment Hot Pack Location R hip Patient Position Sidelying Treatment Duration (minutes) 15 Patient Tolerance Good Comments End of tx PT-OP-T Assessment and Plan Start: 09/16/21 17:04 Freq: Status: Active Protocol: Document 09/30/21 09:15 MA (Rec: 09/30/21 10:18 MA [id number]) Physical Therapy Assessment Goals Two Impairment Pt unable to lift gardening supplies without increased back pain Skilled Nursing Goal (LTG) Pt to report ability to spend >90 minutes outside performing gardening and lifting without experiencing increased back pain. LTG Duration 11/16/21 One Impairment Pt does not have an appropriate home exercise program Short Term Goal (STG) Pt to be independent and compliant with an appropriate HEP STG Duration 10/16/21 Assessment Summary Assessment Vilma had radiating pain down RLE after a weekend of sitting watching movies. She is tender during STM to R glute med and R ITB and initially only tolerates superfical pressure but is able to build into moderate pressure. Educated pt on ways to massage muscles at home using a rolling pin and tennis ball on R ITB and glute med. Physical Therapy Plan Frequency and Duration Frequency of Treatment 2x/Week Duration of Treatment Two months Plan of Care Start Date 09/16/21 Plan of Care End Date 11/16/21 Therapeutic Interventions Therapeutic Interventions Balance Training,Home Exercise Program,Joint Mobilizations, Manual Therapy,Patient/ Caregiver Education,Self-Care/ Home Management,Soft Tissue Mobilization,Therapeutic Activities,Therapeutic Exercises Modalities Cold Pack/Ice Massage,Electric Stimulation,Hot Packs Next Visit Focus/Plan Next Note Type Treatment Note Next Visit Plan Assess response to self-STM. Continue HEP: SL clamshell, reverse clamshell, and hip abd . STM, Joint mobs, Flexibility/ stretching
--- NOTE | 2021-10-04 11:14 | PT.OTN ---
Current Diagnoses Radiculopathy, lumbar region (10/04/21) Low back pain, unspecified (10/04/21) Other specified enthesopathies of unspecified lower limb, excluding foot (10/04/21) Physical Therapy Treatment Note PT-OP-A Visit Information Start: 09/16/21 17:04 Freq: Status: Active Protocol: Document 10/04/21 10:30 DCW (Rec: 10/04/21 11:12 DCW [id number]) Out-Patient Physical Therapy Visit Information Visit Information Visit Type Treatment Note Visit Start Time 10:30 Visit Stop Time 11:20 Total Visit Minutes 50 Visit Number 6 Number of END LATHE OPERATOR Visits 0 Evaluation Information Evaluation Date 09/16/21 PT-OP-B Current Condition Start: 09/16/21 17:04 Freq: Status: Active Protocol: Document 09/16/21 12:00 DCW (Rec: 09/16/21 17:37 DCW [id number]) Current Condition History of Current Condition Onset Date Months, no specific onset date Current Complaints Low back pain, right posteriolateral hip pain, occasional thigh pain History of Current Condition Pt is a 76 year old female presenting with a months long history of low back and posteriolateral hip pain. Pt notes her pain can come and go , typically feels worse when first getting up in the morning or when standing up after extended sitting. Notes she recently completed a course of PT at [facility] in [place] after hurting her neck, and it's not better, but I have some tools now to help it. Reports a history of multiple low back fractures, the first being in the 60s or 70s, and the most recent then being in 1997. Pt reports she has been tightening up since last , and her pain increases with attempted lifting. Had some injections ages ago, with unclear effect , and then again two weeks ago , which she doesn't feel helped at all. Admits she is not a good patient, and struggles to do her exercises that she got from the Ortho she saw. PT-OP-C Subjective Start: 09/16/21 17:04 Freq: Status: Active Protocol: Document 10/04/21 10:30 DCW (Rec: 10/04/21 11:12 DCW [id number]) OP-PT Subjective Patient Comments Patient Comments You know what, she did me good. The mornings are still a little more stiff, but I'm doing well. 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 PT-OP-L Special Tests Start: 09/16/21 17:04 Freq: Status: Active Protocol: Document 09/16/21 12:00 DCW (Rec: 09/16/21 17:37 DCW [id number]) Special Tests Lumbar Spine Special Tests Straight Leg Raise Test Results Negative Slump Test Results Negative ALTON Test Results Negative Compression Test Results Negative A-P Shearing Test Results Negative Hip Special Tests Piriformis Test Results Positive R PT-OP-M Strength Start: 09/16/21 17:04 Freq: Status: Active Protocol: Document 09/16/21 12:00 DCW (Rec: 09/16/21 17:37 DCW [id number]) Trunk Strength Trunk Manual Muscle Testing Core Stabilization Good core/TrA contraction with PPT, hold well with instruction. 4/5 PT-OP-Q Treatments Start: 09/16/21 17:04 Freq: Status: Active Protocol: Document 10/04/21 10:30 DCW (Rec: 10/04/21 11:12 DCW [id number]) Cardio Equipment Recumbent Elliptical ([employer]re[employer]) Duration (Minutes) 5 Resistance 4 Seat Position 8 Therapeutic Exercises Supine Exercises 4 Supine Exercise Name Single KtC Side bilateral 3 Supine Exercise Name LTR Side bilateral 2 Supine Exercise Name Hamstring Stretch Side bilateral 1 Supine Exercise Name Piriformis stretch - knee-to- opposite shoulder Side bilateral Manual Therapy Treatment Soft Tissue Mobilization 1 Body Location R Piriformis, R ITB, R QL Mobilization Type Sustained Pressure,Trigger Point Release Intensity/Depth Moderate Body Position Sidelying PT-OP-R Modalities Start: 09/16/21 17:04 Freq: Status: Active Protocol: Document 10/04/21 10:30 DCW (Rec: 10/04/21 11:12 DCW [id number]) Hot Pack/Cold Pack Treatment Hot Pack Location R hip Patient Position Sidelying Treatment Duration (minutes) 10 Patient Tolerance Good Comments End of tx PT-OP-T Assessment and Plan Start: 09/16/21 17:04 Freq: Status: Active Protocol: Document 10/04/21 10:30 DCW (Rec: 10/04/21 11:12 DCW [id number]) Physical Therapy Assessment Impairments Impairments Functional Activities, Functional Mobility,Pain,Soft Tissue Mobility,Strength,Tone Goals Two Impairment Pt unable to lift gardening supplies without increased back pain High Speed Warper Tender Goal (LTG) Pt to report ability to spend >90 minutes outside performing gardening and lifting without experiencing increased back pain. LTG Duration 11/16/21 One Impairment Pt does not have an appropriate home exercise program Short Term Goal (STG) Pt to be independent and compliant with an appropriate HEP STG Duration 10/16/21 Assessment Summary Assessment Pt making great progress, has been feeling much better overall, no return of her radicular pain. Physical Therapy Plan Frequency and Duration Frequency of Treatment 2x/Week Duration of Treatment Two months Plan of Care Start Date 09/16/21 Plan of Care End Date 11/16/21 Therapeutic Interventions Therapeutic Interventions Balance Training,Home Exercise Program,Joint Mobilizations, Manual Therapy,Patient/ Caregiver Education,Self-Care/ Home Management,Soft Tissue Mobilization,Therapeutic Activities,Therapeutic Exercises Modalities Cold Pack/Ice Massage,Electric Stimulation,Hot Packs Next Visit Focus/Plan Next Note Type Treatment Note Next Visit Plan Assess response to self-STM. Continue HEP: SL clamshell, reverse clamshell, and hip abd . STM, Joint mobs, Flexibility/ stretching
--- NOTE | 2021-10-07 11:15 | PT.OTN ---
Current Diagnoses Radiculopathy, lumbar region (10/07/21) Low back pain, unspecified (10/07/21) Other specified enthesopathies of unspecified lower limb, excluding foot (10/07/21) Physical Therapy Treatment Note PT-OP-A Visit Information Start: 09/16/21 17:04 Freq: Status: Active Protocol: Document 10/07/21 10:30 DCW (Rec: 10/07/21 11:14 DCW [id number]) Out-Patient Physical Therapy Visit Information Visit Information Visit Type Treatment Note Visit Start Time 10:30 Visit Stop Time 11:20 Total Visit Minutes 50 Visit Number 7 Number of CONCRETE PRECAST MOULDER Visits 0 Evaluation Information Evaluation Date 09/16/21 PT-OP-B Current Condition Start: 09/16/21 17:04 Freq: Status: Active Protocol: Document 09/16/21 12:00 DCW (Rec: 09/16/21 17:37 DCW [id number]) Current Condition History of Current Condition Onset Date Months, no specific onset date Current Complaints Low back pain, right posteriolateral hip pain, occasional thigh pain History of Current Condition Pt is a 76 year old female presenting with a months long history of low back and posteriolateral hip pain. Pt notes her pain can come and go , typically feels worse when first getting up in the morning or when standing up after extended sitting. Notes she recently completed a course of PT at [facility] in [place] after hurting her neck, and it's not better, but I have some tools now to help it. Reports a history of multiple low back fractures, the first being in the 60s or 70s, and the most recent then being in 1997. Pt reports she has been tightening up since last , and her pain increases with attempted lifting. Had some injections ages ago, with unclear effect , and then again two weeks ago , which she doesn't feel helped at all. Admits she is not a good patient, and struggles to do her exercises that she got from the Ortho she saw. PT-OP-C Subjective Start: 09/16/21 17:04 Freq: Status: Active Protocol: Document 10/07/21 10:30 DCW (Rec: 10/07/21 11:14 DCW [id number]) OP-PT Subjective Patient Comments Patient Comments Still a little stiff in the morning, but better than I was even a few weeks ago. 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 PT-OP-L Special Tests Start: 09/16/21 17:04 Freq: Status: Active Protocol: Document 09/16/21 12:00 DCW (Rec: 09/16/21 17:37 DCW [id number]) Special Tests Lumbar Spine Special Tests Straight Leg Raise Test Results Negative Slump Test Results Negative ALTON Test Results Negative Compression Test Results Negative A-P Shearing Test Results Negative Hip Special Tests Piriformis Test Results Positive R PT-OP-M Strength Start: 09/16/21 17:04 Freq: Status: Active Protocol: Document 09/16/21 12:00 DCW (Rec: 09/16/21 17:37 DCW [id number]) Trunk Strength Trunk Manual Muscle Testing Core Stabilization Good core/TrA contraction with PPT, hold well with instruction. 4/5 PT-OP-Q Treatments Start: 09/16/21 17:04 Freq: Status: Active Protocol: Document 10/07/21 10:30 DCW (Rec: 10/07/21 11:14 DCW [id number]) Cardio Equipment Recumbent Elliptical (80 Degrees [place]) Duration (Minutes) 5 Resistance 4 Seat Position 8 Gym Equipment Therapeutic Ball 3 Exercise Details Pelvic tilt/circles Ball Size/Color Green - 65 cm Body Position Sitting 1 Exercise Details LTR Ball Size/Color Red - 55 cm Body Position Supine Therapeutic Exercises Supine Exercises 4 Supine Exercise Name Single KtC Side bilateral 2 Supine Exercise Name Hamstring Stretch Side bilateral 1 Supine Exercise Name Piriformis stretch - knee-to- opposite shoulder Side bilateral Manual Therapy Treatment Soft Tissue Mobilization 1 Body Location R Piriformis, R ITB, R QL Mobilization Type Sustained Pressure,Trigger Point Release Intensity/Depth Moderate Body Position Sidelying PT-OP-R Modalities Start: 09/16/21 17:04 Freq: Status: Active Protocol: Document 10/04/21 10:30 DCW (Rec: 10/04/21 11:12 DCW [id number]) Hot Pack/Cold Pack Treatment Hot Pack Location R hip Patient Position Sidelying Treatment Duration (minutes) 10 Patient Tolerance Good Comments End of tx PT-OP-T Assessment and Plan Start: 09/16/21 17:04 Freq: Status: Active Protocol: Document 10/07/21 10:30 DCW (Rec: 10/07/21 11:14 DCW [id number]) Physical Therapy Assessment Impairments Impairments Functional Activities, Functional Mobility,Pain,Soft Tissue Mobility,Strength,Tone Goals Two Impairment Pt unable to lift gardening supplies without increased back pain Cement Finisher Goal (LTG) Pt to report ability to spend >90 minutes outside performing gardening and lifting without experiencing increased back pain. LTG Duration 11/16/21 One Impairment Pt does not have an appropriate home exercise program Short Term Goal (STG) Pt to be independent and compliant with an appropriate HEP STG Duration 10/16/21 Assessment Summary Assessment Pt continues to feel like she has significantly improved, has been working regularly with her HEP. Physical Therapy Plan Frequency and Duration Frequency of Treatment 2x/Week Duration of Treatment Two months Plan of Care Start Date 09/16/21 Plan of Care End Date 11/16/21 Therapeutic Interventions Therapeutic Interventions Balance Training,Home Exercise Program,Joint Mobilizations, Manual Therapy,Patient/ Caregiver Education,Self-Care/ Home Management,Soft Tissue Mobilization,Therapeutic Activities,Therapeutic Exercises Modalities Cold Pack/Ice Massage,Electric Stimulation,Hot Packs Next Visit Focus/Plan Next Note Type Treatment Note Next Visit Plan Assess response to self-STM. Continue HEP: SL clamshell, reverse clamshell, and hip abd . STM, Joint mobs, Flexibility/ stretching
--- NOTE | 2021-10-09 10:56 | PT.OTN ---
Current Diagnoses Radiculopathy, lumbar region (10/09/21) Low back pain, unspecified (10/09/21) Other specified enthesopathies of unspecified lower limb, excluding foot (10/09/21) Physical Therapy Treatment Note PT-OP-A Visit Information Start: 09/16/21 17:04 Freq: Status: Active Protocol: Document 10/09/21 10:14 MA (Rec: 10/09/21 10:54 MA [id number]) Out-Patient Physical Therapy Visit Information Visit Information Visit Type Treatment Note Visit Start Time 10:15 Visit Stop Time 10:55 Total Visit Minutes 40 Visit Number 8 Number of CRACKER AND COOKIE MACHINE OPERATOR Visits 1 PT-OP-B Current Condition Start: 09/16/21 17:04 Freq: Status: Active Protocol: Document 09/16/21 12:00 DCW (Rec: 09/16/21 17:37 DCW [id number]) Current Condition History of Current Condition Onset Date Months, no specific onset date Current Complaints Low back pain, right posteriolateral hip pain, occasional thigh pain History of Current Condition Pt is a 76 year old female presenting with a months long history of low back and posteriolateral hip pain. Pt notes her pain can come and go , typically feels worse when first getting up in the morning or when standing up after extended sitting. Notes she recently completed a course of PT at [facility] in [place] after hurting her neck, and it's not better, but I have some tools now to help it. Reports a history of multiple low back fractures, the first being in the 60s or 70s, and the most recent then being in 1997. Pt reports she has been tightening up since last , and her pain increases with attempted lifting. Had some injections ages ago, with unclear effect , and then again two weeks ago , which she doesn't feel helped at all. Admits she is not a good patient, and struggles to do her exercises that she got from the Ortho she saw. PT-OP-C Subjective Start: 09/16/21 17:04 Freq: Status: Active Protocol: Document 10/09/21 10:14 MA (Rec: 10/09/21 10:54 MA [id number]) OP-PT Subjective Patient Comments Patient Comments Pt feels her back is getting better. She didn't do her exercises yesterday because she went to [facility] and she did have some L side glute pain after at night. 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 PT-OP-L Special Tests Start: 09/16/21 17:04 Freq: Status: Active Protocol: Document 09/16/21 12:00 DCW (Rec: 09/16/21 17:37 DCW [id number]) Special Tests Lumbar Spine Special Tests Straight Leg Raise Test Results Negative Slump Test Results Negative ALTON Test Results Negative Compression Test Results Negative A-P Shearing Test Results Negative Hip Special Tests Piriformis Test Results Positive R PT-OP-M Strength Start: 09/16/21 17:04 Freq: Status: Active Protocol: Document 09/16/21 12:00 DCW (Rec: 09/16/21 17:37 DCW [id number]) Trunk Strength Trunk Manual Muscle Testing Core Stabilization Good core/TrA contraction with PPT, hold well with instruction. 4/5 PT-OP-Q Treatments Start: 09/16/21 17:04 Freq: Status: Active Protocol: Document 10/09/21 10:14 MA (Rec: 10/09/21 10:54 MA [id number]) Cardio Equipment Recumbent Elliptical ([place]) Duration (Minutes) 5 Resistance 5 Seat Position 8 Gym Equipment Therapeutic Ball 3 Exercise Details Pelvic tilt/circles Ball Size/Color Green - 65 cm Body Position Sitting 1 Exercise Details LTR Ball Size/Color Red - 55 cm Body Position Supine Therapeutic Exercises Supine Exercises 4 Supine Exercise Name Single KtC Side bilateral 2 Supine Exercise Name Hamstring Stretch Side bilateral 1 Supine Exercise Name Piriformis stretch - knee-to- opposite shoulder Side bilateral Manual Therapy Treatment Soft Tissue Mobilization 1 Body Location R Piriformis, R ITB, R QL Mobilization Type Sustained Pressure,Trigger Point Release Intensity/Depth Moderate Body Position Sidelying PT-OP-R Modalities Start: 09/16/21 17:04 Freq: Status: Active Protocol: Document 10/04/21 10:30 DCW (Rec: 10/04/21 11:12 DCW [id number]) Hot Pack/Cold Pack Treatment Hot Pack Location R hip Patient Position Sidelying Treatment Duration (minutes) 10 Patient Tolerance Good Comments End of tx PT-OP-T Assessment and Plan Start: 09/16/21 17:04 Freq: Status: Active Protocol: Document 10/09/21 10:14 MA (Rec: 10/09/21 10:54 MA [id number]) Physical Therapy Assessment Goals Two Impairment Pt unable to lift gardening supplies without increased back pain Mcfp Goal (LTG) Pt to report ability to spend >90 minutes outside performing gardening and lifting without experiencing increased back pain. LTG Duration 11/16/21 One Impairment Pt does not have an appropriate home exercise program Short Term Goal (STG) Pt to be independent and compliant with an appropriate HEP STG Duration Achieved Assessment Summary Assessment Pt sees MD next week and would like to wait to officially d/ c until she speaks with . She is independent with her HEP and feels it has helped to greatly reduce her back pain. She has not tried gardening yet this season but feels comfortable getting up/down from floor at home and doesn't think gardening will cause increased pain now that she has the tools to manage her pain. Physical Therapy Plan Frequency and Duration Frequency of Treatment 2x/Week Duration of Treatment Two months Plan of Care Start Date 09/16/21 Plan of Care End Date 11/16/21 Therapeutic Interventions Therapeutic Interventions Balance Training,Home Exercise Program,Joint Mobilizations, Manual Therapy,Patient/ Caregiver Education,Self-Care/ Home Management,Soft Tissue Mobilization,Therapeutic Activities,Therapeutic Exercises Modalities Cold Pack/Ice Massage,Electric Stimulation,Hot Packs Next Visit Focus/Plan Next Note Type Treatment Note Next Visit Plan D/C
--- NOTE | 2022-06-17 15:32 | PT.OPDS ---
Current Diagnoses Radiculopathy, lumbar region (10/09/21) Low back pain, unspecified (10/09/21) Other specified enthesopathies of unspecified lower limb, excluding foot (10/09/21) Visit Care Team Role Provider Type Joslyn Garner MD Attending Provider Physician Family Provider Primary Care Provider Referring Provider Specialty: [facility] Practice Address: [address] [place] [address], [facility] Email: [email or web address] Visit Number Visit Number 8 Discharge Summary PT-OP-B Current Condition Start: 09/16/21 17:04 Freq: Status: Active Protocol: Document 09/16/21 12:00 DCW (Rec: 09/16/21 17:37 DCW [id number]) Current Condition History of Current Condition Onset Date Months, no specific onset date Current Complaints Low back pain, right posteriolateral hip pain, occasional thigh pain History of Current Condition Pt is a 76 year old female presenting with a months long history of low back and posteriolateral hip pain. Pt notes her pain can come and go , typically feels worse when first getting up in the morning or when standing up after extended sitting. Notes she recently completed a course of PT at [facility] in [place] after hurting her neck, and it's not better, but I have some tools now to help it. Reports a history of multiple low back fractures, the first being in the 60s or 70s, and the most recent then being in 1997. Pt reports she has been tightening up since last , and her pain increases with attempted lifting. Had some injections ages ago, with unclear effect , and then again two weeks ago , which she doesn't feel helped at all. Admits she is not a good patient, and struggles to do her exercises that she got from the Ortho she saw. PT-OP-C Subjective Start: 09/16/21 17:04 Freq: Status: Active Protocol: Document 10/09/21 10:14 MA (Rec: 10/09/21 10:54 MA [id number]) OP-PT Subjective Patient Comments Patient Comments Pt feels her back is getting better. She didn't do her exercises yesterday because she went to [facility] and she did have some L side glute pain after at night. PT-OP-F Manual Assessment Start: 09/16/21 17:04 Freq: Status: Active Protocol: Document 09/16/21 12:00 DCW (Rec: 09/16/21 17:37 DCW [id number]) Manual Assessments Soft Tissue Assessment Soft Tissue Mobility Assessment Moderate tone with tenderness to palpation 3/4: Wincing and withdraw along right piriformis Mild-moderate tone with tenderness to palpation 2/4: Pain with wincing along bilateral lumbar paraspinals and QL Joint Mobility Assessment Joint Mobility Assessment Hypotonia along lumbar spine with joint mobilization PT-OP-L Special Tests Start: 09/16/21 17:04 Freq: Status: Active Protocol: Document 09/16/21 12:00 DCW (Rec: 09/16/21 17:37 DCW [id number]) Special Tests Lumbar Spine Special Tests Straight Leg Raise Test Results Negative Slump Test Results Negative ALTON Test Results Negative Compression Test Results Negative A-P Shearing Test Results Negative Hip Special Tests Piriformis Test Results Positive R PT-OP-M Strength Start: 09/16/21 17:04 Freq: Status: Active Protocol: Document 09/16/21 12:00 DCW (Rec: 09/16/21 17:37 DCW [id number]) Trunk Strength Trunk Manual Muscle Testing Core Stabilization Good core/TrA contraction with PPT, hold well with instruction. 4/5 PT-OP-T Assessment and Plan Start: 09/16/21 17:04 Freq: Status: Active Protocol: Document 06/17/22 15:31 DCW (Rec: 06/17/22 15:32 DCW [id number]) Physical Therapy Assessment Assessment Summary Assessment At time of last appointment, pt was ready to discharge, but requested hold her chart open until she had follow-up with PCP. Pt did not require further skilled intervention, and will now be discharged from skilled therapy at this time. Physical Therapy Plan Discharge Physical Therapy Discharge Reasons Goals Met Next Visit Focus/Plan Next Note Type Discharge Summary
== END 2022-06-18 09:56 | disposition home or self-care (01) ==
LOC: PHYS 10:15
PROVIDERS: Family Provider Family Medicine; PCP Family Medicine; Referring Provider Family Medicine; Visit Provider Family Medicine
DX: M76.899 Other specified enthesopathies of unspecified lower limb, excluding foot (principal); M54.16 Radiculopathy, lumbar region; M54.50 Low back pain, unspecified
CPT/HCPCS: 97010; 97110; 97140; 97161

== ENCOUNTER → 2021-10-11 08:10 | Outpatient (CLI) | payer MEDICARE, BC, SELFPAY ==
--- NOTE | 2021-10-11 | DI.MG.S_ITS ---
BILATERAL DIGITAL SCREENING MAMMOGRAM 3D/2D WITH CAD: 10/11/2021 CLINICAL: Routine screening. Family history of breast cancer. Comparison is made to exams dated: 10/10/2020 mammogram, 07/22/2019 mammogram, 06/23/2018 mammogram, and 06/03/2018 mammogram - [facility]. The tissue of both breasts is heterogeneously dense. This may lower the sensitivity of mammography. Current study was also evaluated with a Computer Aided Detection (CAD) system. There are benign calcifications in the right breast. No significant masses, calcifications, or other findings are seen in either breast. There has been no significant interval change. IMPRESSION: BENIGN There is no mammographic evidence of malignancy. A 1 year screening mammogram is recommended. This exam was interpreted at Station ID: [id number]. NOTE: For mammograms, a report in lay terms will be sent to the patient. Approximately 15% of breast malignancies will not be visualized mammographically. In the management of a palpable breast mass, a negative mammogram must not discourage biopsy of a clinically suspicious lesion. Electronically Signed By: Meche martinez/ajay:10/11/2021 11:02:49 letter sent: Normal Exam ACR BI-RADS Category 2: Benign Finding(s) [id number]
== END ==
PROVIDERS: Family Provider Family Medicine; PCP Family Medicine; Referring Provider Family Medicine; Visit Provider Family Medicine
DX: Z12.31 Encounter for screening mammogram for malignant neoplasm of breast (principal); Z80.3 Family history of malignant neoplasm of breast
CPT/HCPCS: 77063; 77067

== ENCOUNTER → 2021-12-09 09:52 | Outpatient (CLI) | payer MEDICARE, BC, SELFPAY ==
[2021-12-09 13:50] LABS: COVID19 -Nasal RAPID Negative (Negative)
== END ==
PROVIDERS: Family Provider Family Medicine; PCP Family Medicine; Visit Provider Surgery
DX: Z20.822 Contact with and (suspected) exposure to COVID-19 (principal); Z01.812 Encounter for preprocedural laboratory examination
CPT/HCPCS: 87635; C9803

== ENCOUNTER 2021-12-10 08:52 | Day surgery (SDC) | payer MEDICARE, BC, SELFPAY ==
[2021-12-10 09:17] VITALS: BP 123/73; PULSE 71; RESP 20; TEMP 36.2; O2SAT 96; BMI 26.6
[2021-12-10] MEDS: LACTATED RINGERS 1,000 ML 200 ML IV (09:23)
--- NOTE | 2021-12-10 10:15 | PM.HP.1 ---
History of Present Illness History of Present Illness Date Patient Seen: 12/10/21 Time Patient Seen: 10:15 Chief complaint: SDC Narrative: The patient presents for colorectal screening. Previous colonoscopy normal. No personal or family history of colon cancer. On further history denies any recent gastrointestinal symptoms. No nausea, vomiting, abdominal pain, loss of appetite, unexplained weight loss, change in bowel habits, diarrhea, constipation, melena, hematochezia, or bright red blood per rectum. Patient History Medical History Arthropathy of lumbosacral facet joint Closed T11 fracture Lumbar stenosis with neurogenic claudication Lumbosacral radiculopathy at L5 Surgical History History of third molar tooth extraction Status post tonsillectomy and adenoidectomy Family & Social History Social History: household members spouse Tobacco & Substance use: Smoking Status Never smoker alcohol intake current alcohol intake frequency a few times a week Substance Use Type does not use Meds Home Medications and Allergies Home Medications Medication Instructions Recorded Confirmed Type estradiol-norethindrone acet 0.5 1 tab PO DAILY 12/27/18 12/10/21 History mg-0.1 mg tablet trazodone 50 mg tablet 50 - 75 mg PO BEDTIME PRN 12/27/18 12/10/21 History depression ascorbic acid (vitamin C) 500 mg 500 mg PO DAILY 01/01/21 12/10/21 History tablet cholecalciferol (vitamin D3) 25 25 mcg PO BID 01/01/21 12/10/21 History mcg (1,000 unit) capsule (Vitamin D3) Allergies Allergy/AdvReac Type Severity Reaction Status Date / Time bacitracin [BACITRACIN] Allergy Mild Verified 12/10/21 09:17 Exam Vital Signs (past 8 hours): - 12/10/21 09:17 Temperature 97.2 F L Pulse Rate 71 Respiratory Rate 20 Blood Pressure 123/73 Pulse Oximetry 96 Oxygen Delivery Method Room Air Oxygen Delivery Method Room Air Narrative Exam Narrative: General adult wound no acute distress Abdomen soft nontender nondistended Assessment & Plan Assessment & Plan narrative: The patient requires colorectal screening and colonoscopy is recommended. Technical details were discussed. Risks, benefits, alternatives explained. Risks including but not limited to myocardial infarction, aspiration, bleeding, pain, missed lesion, incomplete examination, need for further radiographic studies, colonic perforation, and need for major abdominal surgery were discussed. All questions were answered to their satisfaction, and they are in agreement with this plan. Time Spent With Patient Critical Care time: I spent a total of [] minutes of critical care time on this patient's care today; this time is exclusive of procedural time.
--- NOTE | 2021-12-10 10:17 | P.OP.COLON_ITS ---
Operative Date/Time/Diagnoses Date of procedure: 12/10/21 Time of procedure: 10:17 Pre-op diagnosis: Screening Post-op diagnosis: same Procedure & Clinicians Study performed: Colonoscopy Same procedure as scheduled: Yes Indications: Screening Surgeon: Parker Barraza Procedure Notes Procedure in detail: Medications: Conscious sedation using 5mg IV midazolam and 150mcg IV of fentanyl The history and physical was performed/updated and the patient is ASA class is 2. The procedure was discussed in detail with the patient. Potential risks complications including infection, bleeding, missed diagnosis, perforation, need for surgery, and were explained. Their questions were answered and informed consent was obtained. Patient was brought to the procedure room and placed standard monitoring equipment. The patient's vital signs were monitored continuously throughout the entire procedure. Prior to starting time-out was performed. The patient was placed in the left lateral recumbent position. Procedural sedation was adminis tered. Examination began with a thorough inspection of the perianal area there was no evidence of fissures, fistulae, external hemorrhoids or cutaneous malignancy. The colonoscopy scope was then placed into the anal canal and was advanced to the cecum, which was identified by the ileocecal valve, the appendiceal orifice and the confluence of the taenia. The scope was then slowly withdrawn examining colon thoroughly in all directions, irrigating it of any residual stool. FINDINGS 1. Tortuous colon 2. No masses or polyps 3. Sigmoid diverticulosis-mild The patient tolerated the procedure well. They will be discharged once criteria are met. The prep was of good/excellent quality. The withdrawl time was 6 minutes. The sedation time was 20 minutes. Specimen(s): none sent Complications: none Impression: Diverticulosis Post-procedure Recommendations: Colonoscopy in 10 years and High fiber diet Disposition: same day surgery
[2021-12-10 10:47] VITALS: BP 117/65; PULSE 72; RESP 16; TEMP 36.4; O2SAT 94
[2021-12-10 10:51] VITALS: BP 119/65; PULSE 63; RESP 12; O2SAT 94
[2021-12-10 10:56] VITALS: BP 113/59; PULSE 61; RESP 12; O2SAT 95
[2021-12-10 11:03] VITALS: BP 125/72; PULSE 69; RESP 18; TEMP 36.6; O2SAT 93
== END 2021-12-10 12:20 | disposition home or self-care (01) ==
PROVIDERS: Family Provider Family Medicine; PCP Family Medicine; Referring Provider Surgery; Visit Provider Surgery
PROC: 0DJD8ZZ Inspection of Lower Intestinal Tract, Via Natural or Artificial Opening Endoscopic (ICD-10-PCS; CPT 45378; principal; 2021-12-10 10:00)
DX: Z12.11 Encounter for screening for malignant neoplasm of colon (principal); K57.30 Diverticulosis of large intestine without perforation or abscess without bleeding
CPT/HCPCS: G0105; 99152

== ENCOUNTER → 2022-04-24 12:19 | Outpatient (CLI) | payer MEDICARE, BC, SELFPAY ==
--- NOTE | 2022-04-24 12:22 | DI.RAD.S_ITS ---
PROCEDURE: XR HIP W PEL IF DONE FRANDY MIN 4V INDICATIONS: BILATERAL HIP PAIN TECHNIQUE: AP pelvis with lateral view(s) of the both hip(s). COMPARISON: [facility], , HIP 2V LEFT, 01/21/2010, 17:12. FINDINGS: Bones: No fractures or dislocations. Pelvic ring appears intact. No suspicious bony lesions. No significant degenerative changes identified. Soft tissues: The visualized bowel gas pattern is normal. No suspicious soft tissue calcifications. IMPRESSION: Negative hips and pelvis. Dictated by: Ernie Haynes M.D. on 04/24/2022 at 12:58 Approved by: Ernie Haynes M.D. on 04/24/2022 at 12:59
--- NOTE | 2022-04-24 12:22 | DI.RAD.S_ITS ---
PROCEDURE: XR KNEE LT 3V INDICATIONS: LEFT KNEE PAIN TECHNIQUE: 3 views of the knee were acquired. COMPARISON: [facility], , KNEE 3V RIGHT, 02/10/2017, 8:15. FINDINGS: Bones: No fractures or dislocations. No suspicious bony lesions. Soft tissues: No joint effusion. No suspicious soft tissue calcifications. IMPRESSION: Negative left knee. Dictated by: Ernie Haynes M.D. on 04/24/2022 at 12:59 Approved by: Ernie Haynes M.D. on 04/24/2022 at 13:01
--- NOTE | 2022-04-24 12:22 | DI.RAD.S_ITS ---
PROCEDURE: XR LUMBAR SPINE MIN 4V INDICATIONS: BACK PAIN TECHNIQUE: 5 views of the lumbar spine were acquired, including bilateral oblique views. COMPARISON: [facility], , XR LUMBAR SPINE MIN 4V, 12/06/2020, 13:27. FINDINGS: Bones: 5 nonrib-bearing vertebrae are present. There is normal bony alignment. No vertebral body compression fractures. No suspicious bony lesions. There is some mild degenerative disc disease present at L4-5 and L5-S1. Soft tissues: Overlying bowel gas pattern is normal. No suspicious soft tissue calcifications. Oblique images: No pars defects. IMPRESSION: 1. No evidence for acute osseous abnormality involving the lumbar spine. 2. Mild degenerative disc disease present at L4-5 and L5-S1. Dictated by: Ernie Haynes M.D. on 04/24/2022 at 12:53 Approved by: Ernie Haynes M.D. on 04/24/2022 at 12:58
--- NOTE | 2022-04-24 12:22 | DI.RAD.S_ITS ---
PROCEDURE: XR KNEE RT 3V INDICATIONS: RIGHT KNEE PAIN TECHNIQUE: 3 views of the knee were acquired. COMPARISON: [facility], , KNEE 3V RIGHT, 02/10/2017, 8:15. FINDINGS: Bones: No fractures or dislocations. No suspicious bony lesions. Soft tissues: No joint effusion. No suspicious soft tissue calcifications. There is some mild to moderate tricompartmental osteoarthritic type degenerative change present. IMPRESSION: 1. No evidence for acute osseous abnormality involving the patient's right knee. 2. 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 Dictated by: Ernie Haynes M.D. on 04/24/2022 at 13:01 Approved by: Ernie Haynes M.D. on 04/24/2022 at 13:02
== END ==
PROVIDERS: Family Provider Family Medicine; PCP Family Medicine; Referring Provider Anesthesiology; Visit Provider Anesthesiology
DX: M51.16 Intervertebral disc disorders with radiculopathy, lumbar region (principal); M51.17 Intervertebral disc disorders with radiculopathy, lumbosacral region; M47.27 Other spondylosis with radiculopathy, lumbosacral region; M48.062 Spinal stenosis, lumbar region with neurogenic claudication; M70.61 Trochanteric bursitis, right hip; M70.62 Trochanteric bursitis, left hip; M70.71 Other bursitis of hip, right hip; M54.9 Dorsalgia, unspecified; M25.551 Pain in right hip; M25.552 Pain in left hip; M25.561 Pain in right knee; M25.562 Pain in left knee
CPT/HCPCS: 72110; 73522; 73562; 99214

== ENCOUNTER → 2022-04-28 16:01 | Outpatient (CLI) | payer MEDICARE, BC, SELFPAY ==
--- NOTE | 2022-04-28 16:05 | DI.MRI.S_ITS ---
PROCEDURE: MR LUMBAR SPINE WO CON INDICATIONS: worsening lumbar radiculopathy TECHNIQUE: Noncontrast sagittal T1 spin echo and T2 fast echo, sagittal STIR, and T2 fast spin echo through the lumbar spine. In cases with scoliosis, additional coronal T2 fast spin echo may be performed. COMPARISON: [facility], MR, MR LUMBAR SPINE WO CON, 01/06/2019, 18:26. [facility], CR, XR LUMBAR SPINE MIN 4V, 04/24/2022, 12:30. [facility], CR, XR LUMBAR SPINE MIN 4V, 12/06/2020, 13:27. FINDINGS: Image quality: Diagnostic, with note made of motion artifact. Alignment and Curvature: There is mild grade 1 anterolisthesis seen at L5-S1. Bone Marrow: Marrow is of normal overall signal. Scattered foci are seen, which are hyperintense on T1-weighted and T2-weighted imaging, which are most consistent with benign vertebral body hemangiomas. No acute vertebral body compression fractures. Spinal Cord: Conus medullaris terminates at the L1 level. Visualized cord demonstrates normal signal and size. Paraspinous Soft Tissues: No paravertebral masses. T12-L1: Normal appearance. L1-L2: Normal appearance. L2-L3: Normal appearance. L3-L4: The disc height is well preserved. Mild loss of disc signal is seen. Moderate disc bulge is seen, which is eccentric to the left. Mild to moderate facet hypertrophy is seen. Mild bilateral neural foraminal narrowing is seen. Mild central canal narrowing is seen. These imaging findings have progressed compared to the prior study. L4-L5: The disc height is well-preserved. Loss of disc signal is seen at this level. Moderate generalized disc bulge is seen. There is a superimposed central disc protrusion. At least moderate facet hypertrophy is seen. Associated hypertrophy of the ligamentum flavum can be seen. There is moderate right-sided and at least moderate left-sided neural foraminal narrowing. There is a mild degree of compression seen upon the exiting left L4 nerve root. At least moderate central canal narrowing is seen at this level, as on series 6, image 11. These degenerative changes are progressed compared to 2019. L5-S1: The disc height is well-preserved. Loss of disc signal is seen at this level. [id number] disc bulge is seen. There is a superimposed central disc protrusion. At least moderate facet hypertrophy is seen. Associated hypertrophy of the ligamentum flavum can be seen. Fluid is seen within the facet joints themselves. Moderate bilateral neural foraminal narrowing is seen. Moderate central canal narrowing is seen. These imaging findings have progressed compared to the prior study. IMPRESSION: Multiple levels of lower lumbar spine degenerative change are seen, which are progressed compared to 2019. Dictated by: Lizandro Tinajero M.D. on 04/28/2022 at 16:10 Approved by: Lizandro Tinajero M.D. on 04/28/2022 at 16:14
== END ==
PROVIDERS: Family Provider Family Medicine; PCP Family Medicine; Referring Provider Anesthesiology; Visit Provider Anesthesiology
DX: M47.26 Other spondylosis with radiculopathy, lumbar region (principal); M47.27 Other spondylosis with radiculopathy, lumbosacral region
CPT/HCPCS: 72148

== ENCOUNTER 2022-05-01 10:20 | Outpatient (CLI) | payer MEDICARE, BC, SELFPAY ==
[2022-05-01] VITALS (9 sets, daily range): BP systolic 126–150; BP diastolic 66–77; PULSE 66–77; RESP 17–24; O2SAT 98–100
--- NOTE | 2022-05-01 10:22 | DI.RAD.S_ITS ---
PROCEDURE: PAIN L/S TRANSFORAMINAL INJECT INDICATIONS: Lumbar radiculopathy COMPARISON: [facility], , PAIN L/S TRANSFORAMINAL INJECT, 09/05/2021, 10:53. FINDINGS: Fluoroscopic spot filming was performed to verify placement of a spinal needle at the L4-L5 level, as labeled on the films. Appropriate location of the needle tip was confirmed by injection of iodinated contrast. IMPRESSION: Intraprocedural examination within normal limits. Dictated by: Lizandro Tinajero M.D. on 05/01/2022 at 15:25 Approved by: Lizandro Tinajero M.D. on 05/01/2022 at 15:25
[2022-05-01] MEDS: MIDAZOLAM 2 MG/2 ML VIAL 1 MG IV (11:52)
[2022-05-01] MEDS: DEXAMETHASONE 10 MG/ML VIAL 20 MG INJ (11:55)
[2022-05-01] MEDS: IOPAMIDOL 15 ML VIAL 3 ML INJ (11:55)
[2022-05-01] MEDS: BETAMETHASONE 30 MG/5 ML MDV 6 MG INJ (11:55)
--- NOTE | 2022-05-01 12:13 | P.PCN_ITS ---
Date/Time/Diagnoses Date of procedure: 05/01/22 Time of procedure: 12:14 Pre-procedure diagnosis: Lumbar radiculopathy Post-procedure diagnosis: same Procedure Notes Procedure: Right L4-5 Transforaminal Epidural Steroid Injection Indications: Vilma is referred by Dr. Garner for treatment of lumbar radiculopathy with RLE pain. Physician: Sherif Martino Total Fluoroscopy time (seconds): 29 Total sedation minutes: 17 Complications: none Procedure in detail & Post-procedure care: Right L4-5 Transforaminal Epidural Steroid Injection Chief Complaint: Right leg leg pain Interval changes in history/medications/system review: Unchanged since last visit. Allergies: bacitracin Anticoagulants: none Focused Examination: Ax3 Mood and affect are normal Vital Signs: VSS Consent: Following review of allergies and potential side effects/complications, including, but not necessarily limited to, infection, allergic reaction, local tissue breakdown, stroke, temporary or permanent nerve injury, paralysis, and possible , the patient indicated that the patient understood and agreed to proceed.? An informed consent document was signed by the patient, witnessed by a nurse, and placed in the patient's chart.? Additionally, other treatment options including medications, modalities, and physical therapy were reviewed with the patient. All questions were answered. Site was then marked. Position: Prone Anesthesia: Local, Midazolam 1 mg Monitoring: NIBP, Pulse oximetry, 3 lead EKG Needle used: 22G 3.5 inch spinal needle Contrast: Isovue-300 M Injectate: 20 mg Dexamethasone mixed with 6 mg betamethasone Technique: The skin was prepped with chloraprep and draped in a sterile fashion. Time out was performed as per protocol. Oxygen applied via NC. 1 mg of midazolam was administered. Skin and subcutaneous structures of the needle entry site were infiltrated with 5mL of lidocaine 1% using a 25 ga 1.5 inch needle. Under fluoroscopic guidance, using an ipsilateral oblique view,?a 22 gauge 3.5 inch needle was advanced to the base of the L4?pedicle.? The needle was advanced to the superio-posterior aspect of the neural foramen under lateral view.? Oblique and AP views were rechecked. No paresthesias noted by the patient during needle placement. In AP view and utilizing real-time digital subtraction fluoroscopy, 2ml contrast was slowly injected. Epidural spread was observed without evidence for intravascular nor intrathecal uptake. On AP view, contrast spread was seen craniocaudally.? On lateral view, ventral contrast spread was seen. 1 mL of 1% lidocaine was given for a test dose and waited 60 seconds. There were no indications of valscular or thecal placement. The above injectate was then administered and the needle was withdrawn. EBL: less than 1 ml Complications: None Comments: 3.5 inch needle was borderline, recommend 5 inch in future Post Procedure: Patient was taken to the recovery and monitored. The patient was provided a Pain Log to continue to record the patient's response to the target- specific procedure prior to the patient's follow-up visit with the referring physician. Patient was stable upon discharge. Detailed post procedure instructions were provided. Patient was asked to call in the event of worsening pain, fever, weakness, numbness or bladder or bowel incontinence.
== END 2022-05-01 12:30 | disposition home or self-care (01) ==
LOC: RAD 10:22
PROVIDERS: Family Provider Family Medicine; PCP Family Medicine; Referring Provider Anesthesiology; Visit Provider Anesthesiology
DX: M54.16 Radiculopathy, lumbar region (principal); M79.604 Pain in right leg
CPT/HCPCS: 64483; 99152; J0702; J1100; J2250

== ENCOUNTER → 2022-05-02 13:43 | Outpatient (CLI) | payer MEDICARE, BC, SELFPAY ==
--- NOTE | 2022-05-02 13:46 | DI.ECHO.S_ITS ---
[facility] +---------+ : : [address] [place] : : : : [id number] : : : : Phone: [phone]+ Echocardiogram Report + + :Name: GRACE PRICE Study Date: 05/02/2022 Height: 65 in : :[facility] ReadingLocation: Weight: 155 lb : :Account #: [id number] Gender: Female BSA: 1.8 m2 : :: 1945 Age: 77 yrs BP: 140/80 mmHg: :Reason For Study: SOB : :Ordering Physician: AGUSTIN, : :BRIAN Performed By: Da Horta : :Referring: BRIAN VELEZ : + + Interpretation Summary Normal sinus rhythm. Normal LV size, wall thickness, wall motion and LV systolic function. EF is 60-65%. Normal chamber sizes. No valvular abnormalities. No prior study available for comparison. Procedure: A two-dimensional transthoracic echocardiogram with color flow and Doppler was performed. The study quality was technically adequate. There is no prior echocardiogram noted for this patient. The patient was in normal sinus rhythm during the exam. Left Ventricle: The left ventricle is normal in size and wall thickness. Left ventricular systolic function is normal. The ejection fraction is estimated to be 60-65%. There are no focal wall motion abnormalities. Diastolic parameters suggest probable normal left ventricular diastolic function and normal filling pressures. Right Ventricle: The right ventricle is normal in size and function. Atria: Both atria are normal in size. The interatrial septum grossly appears intact with no obvious evidence for an atrial septal defect. Mitral Valve: The mitral valve is normal in structure and function. There is mild mitral regurgitation. Aortic Valve: The aortic valve is normal in structure and function. There is trace aortic regurgitation. Tricuspid Valve: The tricuspid valve is normal in structure and function. There is trace tricuspid regurgitation. Pulmonary artery pressures cannot be estimated because of the lack of a measurable TR jet velocity. Pulmonic Valve: The pulmonic valve is not well seen, but is grossly normal. There is no pulmonic valvular regurgitation. Great Vessels: The aortic root is normal size. The dimensions of the ascending aorta are normal. The IVC is of normal diameter and collapses greater than 50% with a sniff. This suggests a low right atrial pressure of 3 mm Hg. Pericardium/ Pleura There is no pericardial effusion. There is no pleural effusion. MMode/2D Measurements & Calculations LVIDd: 4.3 cm LVOT diam: 1.9 cm LVIDs: 2.9 cm Ao root diam: 2.8 cm FS: 33.9 % asc Aorta Diam: 2.6 cm IVSd: 0.81 cm LVPWd: 0.67 cm LV merritt. diameter/BSA (cm/m^2): 2.4 LV sys. diameter/BSA (cm/m^2): 1.6 LA A2 area: 17.3 cm2 RA long axis: 5.2 cm LA A4 area: 18.7 cm2 RA area: 14.0 cm2 LA length (vol): 5.9 cm RA vol: 31.9 ml LA vol: 46.3 ml RA : 18.0 ml/m2 LA vol index: 26.1 ml/m2 TAPSE: 2.0 cm Doppler Measurements & Calculations Ao V2 max: 137.1 cm/sec LVOT Max Bert: 120.4 cm/sec Ao V2 mean: 100.2 cm/sec LV V1 max P.8 mmHg Ao max P.5 mmHg LV V1 VTI: 25.2 cm Ao mean P.4 mmHg DALE(I,D): 2.5 cm2 Ao V2 VTI: 29.4 cm DALE(V,D): 2.5 cm2 sev ratio: 0.86 DALE indexed to BSA (cm^2/m^2): 1.4 MV E max bert: 110.7 cm/sec SV(LVOT): 72.8 ml MV A max bert: 85.2 cm/sec MV E/A: 1.3 Med Peak E' Bert: 8.4 cm/sec E/E' med: 13.2 Lat Peak E' Bert: 9.9 cm/sec E/E' lat: 11.1 E/e' average: 12.2 MV dec time: 0.14 sec Electronically signed by: Marjan Fitzpatrick M.D. on Reading Physician:05/03/2022 04:54 AM
== END ==
PROVIDERS: Family Provider Family Medicine; PCP Family Medicine; Referring Provider Family Medicine; Visit Provider Family Medicine
DX: I34.0 Nonrheumatic mitral (valve) insufficiency (principal); R06.02 Shortness of breath; R10.9 Unspecified abdominal pain; R14.0 Abdominal distension (gaseous)
CPT/HCPCS: 93306

== ENCOUNTER → 2022-05-23 09:18 | Outpatient (CLI) | payer MEDICARE, BC, SELFPAY ==
--- NOTE | 2022-05-23 | DI.CT.S_ITS ---
PROCEDURE: CT ABDOMEN PELVIS W CON INDICATIONS: ABDOMINAL PAIN TECHNIQUE: After the administration of oral and intravenous contrast, axial sections were acquired from the lung bases to the pubic symphysis. Coronal and sagittal reformats were performed. For radiation dose reduction, the following was used: automated exposure control, adjustment of mA and/or kV according to patient size. COMPARISON:None. FINDINGS: Image quality: Excellent. Lung bases: Unremarkable. Heart: No significant findings. ABDOMEN: Liver: Unremarkable. Gallbladder: Contracted and therefore not well visualized. Biliary ducts: Unremarkable. Pancreas: Unremarkable. Spleen: Unremarkable. Adrenal Glands: Unremarkable. Kidneys and Ureters: Unremarkable. Stomach and Bowel: Stomach, small bowel loops, and colon are free of mass lesion but there is generalized colonic obstipation. Peritoneum: No abnormal intraperitoneal fluid. No free air. Ventral Wall: No hernia. Abdominal Nodes: No retroperitoneal or mesenteric adenopathy by size criteria. Vessels: Aorta and inferior vena cava are normal in size. PELVIS: Pelvic Organs: Unremarkable. Bladder: Unremarkable. Pelvic Nodes: No enlarged lymph nodes. Miscellaneous: No inguinal hernias are seen. Generalized colonic obstipation. Bones: Unremarkable. IMPRESSION: No sign of peritoneal mass or ascites, no ovarian/adnexal pathology is seen. Generalized colonic obstipation. No suspicion for peritoneal carcinomatosis. Dictated by: Giovanny Morin M.D. on 05/23/2022 at 16:35 Approved by: Giovanny Morin M.D. on 05/23/2022 at 16:37
[2022-05-23 10:46] LABS: BUN Creatinine Ratio 20.5 (6-22); Blood Urea Nitrogen 16 mg/dL (7-17); Calcium 9.2 mg/dL (8.4-10.2); Carbon Dioxide 28 mmol/L (22-32); Chloride 104 mmol/L (98-107); Estimated Glomerular Filt Rate > 60 mL/min (>60); Glucose 90 mg/dL (80-110); HEMOLYSIS < 15 (0-50); Potassium 4.2 mmol/L (3.4-5.1); Sodium 140 mmol/L (137-145)
== END ==
PROVIDERS: Family Provider Family Medicine; PCP Family Medicine; Referring Provider Family Medicine; Visit Provider Family Medicine
DX: K59.00 Constipation, unspecified (principal); R10.9 Unspecified abdominal pain
CPT/HCPCS: 36415; 74177; 80048; Q9967

== ENCOUNTER → 2022-05-29 09:56 | Outpatient (ROUT) | payer MEDICARE, BC, SELFPAY ==
[2022-05-29 10:49] LABS: Influenza A - CEPHEID Flu A NEGATIVE (NEGATIVE); Influenza B - CEPHEID Flu B NEGATIVE (NEGATIVE); Respiratory Syncytial Virus POSITIVE (Negative)
[2022-05-29 10:51] LABS: COVID-19 CEPHEID 4-PLEX PCR Negative (Negative)
== END ==
PROVIDERS: Family Provider Family Medicine; PCP Family Medicine; Visit Provider Family Medicine
DX: J06.9 Acute upper respiratory infection, unspecified (principal); Z20.822 Contact with and (suspected) exposure to COVID-19
CPT/HCPCS: 0241U

== ENCOUNTER → 2022-09-01 09:39 | Outpatient (CLI) | payer MEDICARE, BC, SELFPAY ==
[2022-09-01 11:19] LABS: Add Manual Diff / Slide Review NO; Basophils Absolute Auto 100 /uL (0-100); Eosinophils Absolute Auto 200 /uL (0-450); Eosinophils Percent Auto 2.6 % (2-4); Hematocrit 40.4 % (36-46); Hemoglobin 13.5 g/dL (12.0-16.0); Lymphocytes Absolute Auto 1200 /uL (1100-4500); Lymphocytes Percent Auto 18.8 % (25-40); Mean Corpuscular HGB Conc 33.5 % (30-36); Mean Corpuscular Hemoglobin 29.1 PG (26-34); Mean Corpuscular Volume 86.9 fL (80-100); Monocytes Absolute Auto 300 /uL (0-900); Monocytes Percent Auto 5.2 % (3-14); Neutrophils Absolute Auto 4600 /uL (1500-7000); Neutrophils Percent Auto 72.4 % (50-75); Platelet Count 240 X10^3/uL (150-400); Red Blood Cell Count 4.65 X10^6/uL (4.0-5.2); Red Cell Distribution Width 13.6 % (11.6-14.8); White Blood Cell Count 6.3 X10^3/uL (4.5-11.0)
[2022-09-01 11:35] LABS: Alanine Aminotransferase 24 IU/L (<35); Albumin 3.8 g/dL (3.5-5.0); Albumin Globulin Ratio 1.6 (1.0-2.8); Alkaline Phosphatase 57 U/L (38-126); Aspartate Aminotransferase 30 IU/L (14-36); BUN Creatinine Ratio 14.8 (6-22); Bilirubin Total 0.6 mg/dL (0.2-1.3); Blood Urea Nitrogen 13 mg/dL (7-17); Carbon Dioxide 26 mmol/L (22-32); Chloride 104 mmol/L (98-107); Estimated Glomerular Filt Rate > 60 mL/min (>60); Globulin 2.4 g/dL (1.7-4.1); Glucose 85 mg/dL (80-110); HEMOLYSIS < 15 (0-50); Potassium 4.2 mmol/L (3.4-5.1); Sodium 136 mmol/L (137-145); Total Protein 6.2 g/dL (6.3-8.2)
== END ==
PROVIDERS: Family Provider Family Medicine; PCP Family Medicine; Referring Provider Anesthesiology; Visit Provider Anesthesiology
DX: M79.89 Other specified soft tissue disorders (principal); M25.561 Pain in right knee; M25.562 Pain in left knee; G89.29 Other chronic pain
CPT/HCPCS: 36415; 80053; 85025; 99214

== ENCOUNTER → 2022-10-23 11:22 | Outpatient (CLI) | payer MEDICARE, BC, SELFPAY ==
--- NOTE | 2022-10-23 | DI.MG.S_ITS ---
BILATERAL DIGITAL SCREENING MAMMOGRAM 3D/2D WITH CAD: 10/23/2022 CLINICAL: Routine screening. Family history of breast cancer. Comparison is made to exams dated: 10/11/2021 mammogram, 10/10/2020 mammogram, 07/22/2019 mammogram, 06/23/2018 mammogram, and 06/03/2018 mammogram - [facility]. Both breasts are heterogeneously dense, which may obscure small masses (category c / 51-75% glandular tissue). Current study was also evaluated with a Computer Aided Detection (CAD) system. There are benign calcifications in the right breast. No significant masses, calcifications, or other findings are seen in either breast. There has been no significant interval change. IMPRESSION: BENIGN There is no mammographic evidence of malignancy. A 1 year screening mammogram is recommended. Based on the Tyrer Cuzick model (a risk assessment model) the patient's lifetime risk is 5.6% and her 10 year risk is 0.0%. According to the ACR, ACS, and NCCN guidelines, an annual breast MRI exam along with mammogram is recommended if the patient's lifetime risk is 20% or greater. This exam was interpreted at Station ID: [id number]. NOTE: For mammograms, a report in lay terms will be sent to the patient. Approximately 15% of breast malignancies will not be visualized mammographically. In the management of a palpable breast mass, a negative mammogram must not discourage biopsy of a clinically suspicious lesion. Electronically Signed By: Jairon vyas/ajay:10/23/2022 14:22:18 letter sent: Normal Exam ACR BI-RADS Category 2: Benign Finding(s) 3342F
== END ==
PROVIDERS: Family Provider Family Medicine; PCP Family Medicine; Referring Provider Family Medicine; Visit Provider Family Medicine
DX: Z12.31 Encounter for screening mammogram for malignant neoplasm of breast (principal); Z80.3 Family history of malignant neoplasm of breast
CPT/HCPCS: 77063; 77067

== ENCOUNTER → 2022-11-27 12:31 | Outpatient (CLI) | payer MEDICARE, BC, SELFPAY ==
--- NOTE | 2022-11-27 | DI.RAD.S_ITS ---
PROCEDURE: XR ABDOMEN 1V INDICATIONS: Epigastric pain TECHNIQUE: One view of the abdomen acquired. COMPARISON: None. FINDINGS: Surgical changes and devices: None. Bowel: Bowel gas pattern is normal. Large fecal load. Soft tissues: No suspicious abdominal calcifications. Visualized solid organ contours appear normal in size. Bones: No suspicious bony lesions. IMPRESSION: Large fecal load. Normal bowel gas pattern. Dictated by: Naresh Real M.D. on 11/27/2022 at 14:17 Approved by: Naresh Real M.D. on 11/27/2022 at 14:17
== END ==
PROVIDERS: Family Provider Family Medicine; PCP Family Medicine; Referring Provider Registered Nurse; Visit Provider Registered Nurse
DX: R10.13 Epigastric pain (principal)
CPT/HCPCS: 74018

== ENCOUNTER → 2023-03-28 15:07 | Outpatient (CLI) | payer MEDICARE, BC, SELFPAY ==
--- NOTE | 2023-03-28 | DI.RAD.S_ITS ---
PROCEDURE: XR HAND LT 2V INDICATIONS: Hand Pain TECHNIQUE: 3 views of the hand(s) acquired. COMPARISON: [facility], CR, XR HAND RT 2V, 03/28/2023, 15:19. [facility], CR, HAND 3V RIGHT, 09/29/2016, 13:05. FINDINGS: Bones: No acute fracture or dislocation. Severe 1st CMC and STT joint space narrowing, subarticular sclerosis and periarticular osteophytosis with radial subluxation. Severe 2nd and 3rd DIP joint space narrowing, periarticular osteophytosis and the ulnar subluxation. Remainder of the 1st through 5th IP joints demonstrate rvqu-in-[id number] joint space narrowing and periarticular osteophytosis. Soft tissues: No suspicious soft tissue calcifications. Soft tissue swelling of the 2nd and 3rd digits. IMPRESSION: 1. No acute fracture or dislocation. 2. 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 3. 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 Dictated by: Deepika Padron M.D. on 03/28/2023 at 17:59 Approved by: Deepika Padron M.D. on 03/28/2023 at 18:06
--- NOTE | 2023-03-28 | DI.RAD.S_ITS ---
PROCEDURE: XR HAND RT 2V INDICATIONS: Hand Pain TECHNIQUE: 3 views of the hand(s) acquired. COMPARISON: [facility], CR, XR HAND LT 2V, 03/28/2023, 15:19. [facility], CR, HAND 3V RIGHT, 09/29/2016, 13:05. FINDINGS: Bones: No fractures or dislocations. Severe 1st CMC and STT joint space narrowing, subarticular sclerosis and periarticular osteophytosis with radial subluxation. Mild to moderate joint space narrowing and periarticular osteophytosis of the IP joints of the 1st through 5th digits. Soft tissues: No suspicious soft tissue calcifications. No soft tissue swelling or radiopaque foreign body. IMPRESSION: 1. No acute fracture or dislocation. 2. 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 3. 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 Dictated by: Deepika Padron M.D. on 03/28/2023 at 17:52 Approved by: Deepika Padron M.D. on 03/28/2023 at 17:58
== END ==
PROVIDERS: Family Provider Family Medicine; PCP Family Medicine; Referring Provider Family Medicine; Visit Provider Family Medicine
DX: M20.002 Unspecified deformity of left finger(s) (principal); M19.042 Primary osteoarthritis, left hand; S63.002A Unspecified subluxation of left wrist and hand, initial encounter; M19.041 Primary osteoarthritis, right hand; S63.001A Unspecified subluxation of right wrist and hand, initial encounter
CPT/HCPCS: 73120

== ENCOUNTER → 2023-10-29 13:12 | Outpatient (CLI) | payer MEDICARE, BC, SELFPAY ==
--- NOTE | 2023-10-29 13:14 | DI.MG.S_ITS ---
BILATERAL DIGITAL SCREENING MAMMOGRAM 3D/2D WITH CAD: 10/29/2023 CLINICAL: Routine screening. Family history of breast cancer. Comparison is made to exams dated: 10/23/2022 mammogram, 10/11/2021 mammogram, and 10/10/2020 mammogram - [facility]. Both breasts are heterogeneously dense, which may obscure small masses (category c / 51-75% glandular tissue). Current study was also evaluated with a Computer Aided Detection (CAD) system. There are benign calcifications in the right breast. No significant masses, calcifications, or other findings are seen in either breast. There has been no significant interval change. IMPRESSION: BENIGN There is no mammographic evidence of malignancy. A 1 year screening mammogram is recommended. Based on the Tyrer Cuzick model (a risk assessment model) the patient's lifetime risk is 5.0% and her 10 year risk is 0.0%. According to the ACR, ACS, and NCCN guidelines, an annual breast MRI exam along with mammogram is recommended if the patient's lifetime risk is 20% or greater. This exam was interpreted at Station ID: [id number]. NOTE: For mammograms, a report in lay terms will be sent to the patient. Approximately 15% of breast malignancies will not be visualized mammographically. In the management of a palpable breast mass, a negative mammogram must not discourage biopsy of a clinically suspicious lesion. Electronically Signed By: Didi olvera/ajay:10/29/2023 19:07:11 letter sent: Normal Exam ACR BI-RADS Category 2: Benign Finding(s) 3342F
== END ==
PROVIDERS: Family Provider Family Medicine; PCP Family Medicine; Referring Provider Family Medicine; Visit Provider Family Medicine
DX: Z12.31 Encounter for screening mammogram for malignant neoplasm of breast (principal); Z80.3 Family history of malignant neoplasm of breast; R92.333 Mammographic heterogeneous density, bilateral breasts
CPT/HCPCS: 77063; 77067

== ENCOUNTER → 2023-11-04 10:12 | Outpatient (CLI) | payer MEDICARE, BC, SELFPAY ==
--- NOTE | 2023-11-04 10:13 | DI.RAD.S_ITS ---
PROCEDURE: XR DEXA AXIAL SKELETON INDICATIONS: OSTEOPENIA COMPARISON: [facility], , XR DEXA AXIAL SKELETON, 07/22/2019, 13:09. [facility], CR, XR DEXA AXIAL SKELETON, 08/08/2021, 10:40. FINDINGS: Lumbar Spine: Bone mineral density 0.798 g/cm2, T score -2.3. Left Hip: Bone mineral density 0.784 g/cm2, T score -1.3. Left Femoral Neck: Bone mineral density is 0.576 g/cm2, T score -2.5. Right Hip: Bone mineral density 0.683 g/cm2, T score -2.1. Right Femoral Neck: Bone mineral density 0.586 g/cm2, T score -2.4. Fracture Risk Calculation (when applicable): 10-year fracture risk of a major osteoporotic fracture 24% and of a hip fracture 7.3%. (T score greater or equal to -1.0 to: NORMAL) (T score from -1.1 to -2.4: OSTEOPENIA) (T score less than or equal to -2.5: OSTEOPOROSIS) IMPRESSION: Osteopenia of the lumbar spine and the right hip and osteoporosis of the left hip. Follow-up guidelines as follows: Osteoporosis: Consider a repeat DEXA and Vertebral Fracture Assessment (VFA) exam in 2 years or sooner if medically necessary, to reassess this patient's status. Osteopenia: Consider a repeat DEXA in 2-3 years to reassess this patient's status, or if there is a new clinical indication. Normal: Consider a repeat DEXA in 5 years or sooner, or if there is a new clinical indication. Dictated by: Meche Cleveland M.D. on 11/04/2023 at 13:20 Approved by: Meche Cleveland M.D. on 11/04/2023 at 13:22
== END ==
LOC: RAD 10:13
PROVIDERS: Family Provider Family Medicine; PCP Family Medicine; Referring Provider Family Medicine; Visit Provider Family Medicine
DX: M85.89 Other specified disorders of bone density and structure, multiple sites (principal)
CPT/HCPCS: 77080

== ENCOUNTER → 2023-11-10 15:50 | Outpatient (CLI) | payer MEDICARE, BC, SELFPAY ==
--- NOTE | 2023-11-10 | DI.RAD.S_ITS ---
PROCEDURE: XR CHEST 2V INDICATIONS: other chest pain TECHNIQUE: 2 views of the chest were acquired. COMPARISON: None. FINDINGS: Surgical changes and devices: None. Lungs and pleura: Lungs are clear. No pleural effusions or pneumothorax. Mediastinum: Mediastinal contours are normal. Heart size is normal. Bones and chest wall: No suspicious bony abnormalities. Soft tissues appear unremarkable. IMPRESSION: No acute cardiopulmonary abnormality is seen. Dictated by: Vadim Morejon M.D. on 11/10/2023 at 16:50 Approved by: Vadim Morejon M.D. on 11/10/2023 at 16:50
[2023-11-10 16:53] LABS: COVID-19 CEPHEID 4-PLEX PCR Negative (Negative); Influenza A - CEPHEID Flu A NEGATIVE (NEGATIVE); Influenza B - CEPHEID Flu B NEGATIVE (NEGATIVE); Respiratory Syncytial Virus Negative (Negative)
== END ==
PROVIDERS: Family Provider Family Medicine; PCP Family Medicine; Visit Provider Family Medicine
DX: R05.1 Acute cough (principal)
CPT/HCPCS: 0241U; 71046

== ENCOUNTER → 2024-01-12 | Outpatient (CLI) | payer MEDICARE, BC, SELFPAY ==
--- NOTE | 2024-01-12 07:00 | DI.NM.S_ITS ---
PROCEDURE: NM WARREN PERF SPECT REST & STR Rest and exercise myocardial perfusion SPECT with gated imaging and ejection fraction RADIOPHARMACEUTICAL: 25.4 mCi Tc-99m sestamibi IV at rest and 25.6 mCi Tc-99m sestamibi IV at peak exercise. A 9-bnu-rcooagaw was performed. INDICATIONS: OTHER CHEST PAIN TECHNIQUE: Radiopharmaceutical was injected at peak stress test, and also at rest. SPECT images were obtained. SPECT myocardial perfusion images were displayed in short axis, horizontal long axis, and vertical long axis views. Gated images were reviewed using [employer] software. COMPARISON: None. CARDIAC STRESS: A treadmill exercise tolerance test was performed by the patient under the supervision of an attending staff. The patient exercised for 3 minutes on the Sanjay protocol and then remaining 47 seconds on a modified Sanjay protocol due to knee pain; 4 METS; functional aerobic impairment (JIMBO) is +39%. Hemodynamic data: There is normal blood pressure and heart rate response to exercise stress. Patient achieved 97% of maximum predicted heart rate at peak exercise. Maximum blood pressure 150/80. Symptoms: Patient denied chest pain during exercise. EKG: No diagnostic EKG changes of ischemia; no ectopy. FINDINGS: Raw data: There is good myocardial labeling by radiotracer. No significant motion artifacts. Vvze-bj-zlzop ratio is 0.26 (normal is less than 0.38 for sestamibi tracer, and less than 0.50 for thallium tracer). Left ventricle function: Gated images demonstrate normal left ventricle wall thickening. No segmental wall motion abnormality. No transient ischemic dilation; TID is 1.0 (normal less than 1.3). The left ventricle resting end-diastolic volume is 68 mL. Left ventricle stress ejection fraction is >75%; normal values are above 45%. Myocardial perfusion: There is normal distribution of activity in the left and right ventricular myocardium. No fixed or reversible perfusion defects. IMPRESSION: Low risk study for ischemia. No evidence of exercise-induced ischemia on ECG or SPECT imaging. Normal LV size with hyperdynamic function. Accelerated heart rate response to exercise. Normal blood pressure response. Reduced exercise capacity. Dictated by: Whit Pavon D.O. on 01/14/2024 at 16:17 Approved by: Whit Pavon D.O. on 01/14/2024 at 16:23
== END ==
LOC: NUCM 07:00
PROVIDERS: Family Provider Family Medicine; PCP Family Medicine; Referring Provider Family Medicine; Visit Provider Family Medicine
DX: R07.89 Other chest pain (principal)
CPT/HCPCS: 78452; 93017; A9502

== ENCOUNTER → 2024-11-04 15:36 | Outpatient (CLI) | payer MEDICARE, BC, SELFPAY ==
--- NOTE | 2024-11-04 15:37 | DI.MG.S_ITS ---
MM screening mammo BI: 11/04/2024. BI-RADS: 1 CLINICAL: 79-year old female for bilateral screening mammogram. Tyrer-Cuzick lifetime risk of 5.7%. No personal or first-degree family history of breast cancer. Current reported family history of breast cancer: maternal aunt. The patient had a prior left breast biopsy. PRIOR EXAMS 10/29/2023, 10/23/2022, 10/11/2021, 10/10/2020, 07/22/2019, 06/23/2018, 06/03/2018, 03/16/2017, 02/15/2016. MAMMOGRAPHY TECHNIQUE: 2D and 3D (tomosynthesis) digital mammographic views obtained, with additional images as needed for full coverage. Current study was also evaluated with a Computer Aided Detection (CAD) system. DENSITY C. The breasts are heterogeneously dense, which may obscure small masses. MAMMOGRAPHY FINDINGS Bilateral: No suspicious mass, asymmetry, microcalcification, or other abnormality seen. IMPRESSION: * No evidence of malignancy. RECOMMENDATIONS Bilateral * Annual screening mammography. OVERALL ASSESSMENT CATEGORY BI-RADS-1: Negative. The [employer] recommends annual screening mammography beginning at age 40 for women with average risk of breast cancer. ELECTRONICALLY SIGNED: Law Rivera M.D. on 11/04/2024 at 05:54:37 PM PT Interpreting Station ID: [id number]
== END ==
PROVIDERS: Family Provider Family Medicine; PCP Family Medicine; Referring Provider Family Medicine; Visit Provider Family Medicine
DX: Z12.31 Encounter for screening mammogram for malignant neoplasm of breast (principal); R92.333 Mammographic heterogeneous density, bilateral breasts; Z80.3 Family history of malignant neoplasm of breast
CPT/HCPCS: 77063; 77067

== ENCOUNTER → 2024-11-09 10:16 | Outpatient (CLI) | payer MEDICARE, BC, SELFPAY ==
--- NOTE | 2024-11-09 10:17 | DI.RAD.S_ITS ---
PROCEDURE: XR DEXA AXIAL SKELETON INDICATIONS: Age related osteoporosis COMPARISON: [facility], CR, XR DEXA AXIAL SKELETON, 11/04/2023, 10:44. FINDINGS: Lumbar Spine: Bone mineral density 0.781 g/cm2, T score -2.4, compared to -2.3. Left Femoral Neck: Bone mineral density 0.600 g/cm2, T score -2.2, compared to -2.5. Left Hip: Bone mineral density 0.742 g/cm2, T score -1.6, compared to -1.3. Fracture Risk Calculation (when applicable): 10-year fracture risk of a major osteoporotic fracture 24 percent and of a hip fracture 6.8 percent. (T score greater or equal to -1.0 to: NORMAL) (T score from -1.1 to -2.4: OSTEOPENIA) (T score less than or equal to -2.5: OSTEOPOROSIS) IMPRESSION: Persistent severe osteopenia with approximate 2% progressive bone mineral density loss in the lumbar spine. Mildly improved appearance osteopenia in the femoral neck with in increase of bone mineral density of approximately 4%. Follow-up guidelines as follows: Osteoporosis: Consider a repeat DEXA and Vertebral Fracture Assessment (VFA) exam in 2 years or sooner if medically necessary, to reassess this patient's status. Osteopenia: Consider a repeat DEXA in 2-3 years to reassess this patient's status, or if there is a new clinical indication. Normal: Consider a repeat DEXA in 5 years or sooner, or if there is a new clinical indication. All treatment decisions require clinical judgment and consideration of individual patient factors, including patient preferences, comorbidities, previous drug use, risk factors not captured in the FRAX model (e.g., frailty, falls, vitamin D deficiency, increased bone turnover, interval significant decline in bone density ) and possible under- or over-estimation of fracture risk by FRAX. In addition, the NOF Guide recommends that FDA-approved medical therapies be considered in postmenopausal women and men age >= 50 years with a: * Hip or vertebral (clinical or morphometric) fracture * T-score of <=-2.5 at the spine or hip * Ten-year fracture probability by FRAX of >= 3% for hip fracture or >=20% for major osteoporotic fracture. Dictated by: Kiah Best M.D. on 11/09/2024 at 16:02 Approved by: Kiah Bets M.D. on 11/09/2024 at 16:04
== END ==
PROVIDERS: Family Provider Family Medicine; PCP Family Medicine; Referring Provider Family Medicine; Visit Provider Family Medicine
DX: M81.0 Age-related osteoporosis without current pathological fracture (principal); M85.89 Other specified disorders of bone density and structure, multiple sites
CPT/HCPCS: 77080

== ENCOUNTER 2025-04-24 09:00 | Outpatient (RCR) | payer MEDICARE, BC, SELFPAY ==
--- NOTE | 2025-02-02 18:58 | ST.OPIE ---
Visit Care Team Role Provider Type Joslyn Garner MD Family Provider Physician Primary Care Provider Specialty: Family Practice Address: [address] [place] [address], [place], [address] Email: [email or web address] Brandon Iglesias MD Attending Provider Physician Referring Provider Specialty: Ear, Nose, Throat Address: [address] [place] [address], [id number] Email: [email or web address] Speech-Language Pathology Initial Evaluation CREDIT CHECKER Voice Resonance Evaluation Start: 02/02/25 18:25 Freq: Status: Active Protocol: Document 02/02/25 18:25 SS (Rec: 02/02/25 18:58 SS Desktop) Voice and Resonance Assessment Session Time Visit Start Time 11:30 Visit Stop Time 12:15 Total Visit Minutes 45 Visit Information Visit Number 1 Plan of Care Dates 02/02/25-05/05/25 Insurance Medicare (kx modifier after 19 visits) Information Next Note Type Next Note Type Treatment Note Referral Referring Physician Dr. Brandon Iglesias (ENT) Reason for Referral Hoarseness Setting Setting Outpatient Care Patient History Patient History Vilma Jones is a 79-year-old female, referred for speech therapy evaluation by Dr. Iglesias due to concerns regarding voice. Pt presented to ENT Brandon Iglesias MD, on 01/18/25 reporting increased hoarseness without known alleviating or exacerbating factors. Pt denied throat pain, GERD, or dysphagia. Results of assessment performed on that date indicated symptoms consistent with chronic dysphonia and increased phlegm in throat. Laryngoscopy or direct visualization of the vocal folds was not completed at the time, though was recommended. Voice therapy was recommended to target dysphonia. PMHx significant for skin cancer (MOHS surgeries), tinnitus, and arthritis. Otherwise, her medical history is unremarkable. She has smoking history of about 46 years ago, drinks alcohol x2/week, and caffeine x7/week . Pt reported that she had gradual onset of voice problems about a year ago that began without any known inciting event. Voice rest does not appear to result in voice improvement, though increasing voice use results in voice decline. Currently, she has trouble speaking for more than 10-20 minutes without developing laryngeal tension and vocal fatigue and has difficulty talking on the phone. She stated the hoarseness seems to fluctuate, with some days being perfectly clear, and others being more hoarse. Pt?s primary goal is to find out what's the cause of my voice. Hearing Hearing Level Normal Auditory History Tinnitus Previous Therapy Previous Speech- No Language Therapy Oral Motor Assessment Source: [employer] ([employer]YK[employer]). Oral-Motor Eval Yes Completed Oral-Motor CRANIAL NERVE EXAM Assessment CN V (Trigeminal): intact b/l CN VII (Facial): intact b/l CN IX/X (Glossopharyngeal/Vagus): Unable to exclude CN X branch involvement 2/2 dysphonia CN XII (Hypoglossal): intact b/l Subjective Subjective Pt arrived to the session on time. She was engaged and motivated to participate throughout. - Laryngeal Performance S/Z Ratio S/Z Ratio 21.70/22.22 = 0.98 WNL Functional for Yes Speech Reduced Laryngeal No Function Relative to Respiration Voice Handicap Index Function Subtotal 7 Physical Subtotal 20 Emotional Subtotal 18 Total Score 45 Severity Moderate (31-60) CAPE-V Overall Severity Moderate (c/b roughness, strain, and reduced volume) Roughness Moderate Breathiness None Strain Moderate Pitch Moderately reduced Loudness Mildly reduced Normal Resonance? Yes Maximum Phonation Time MPT Norms: Women (15-25) Men (25-35) Loudness (50-60 dB); Speaking Rate: Oral Reading of Sentences (190 Words Per Minute); Oral Reading of Paragraphs (160-170 WPM); Speaking Rate in Conversation (150-250 WPM) Maximum Phonation 12.38 Below Average Time Maximum Phonation Reduced Time Maximum Phonation MPT is the maximum time in seconds for which a person Time Comments can sustain a vowel sound /a/ when produced on one deep breath at a relatively comfortable pitch and loudness. MPT is not a diagnostic of laryngeal pathology; however, is useful as an indicator of laryngeal pathology. To obtain the patient?s MPT, the patient was asked to take a deep breath and sustain the vowel sound ?ah? for as long as possible at a comfortable pitch and loudness on one exhalation, without straining. The best of three attempts at sustaining the vowel sound was used as the patient?s MPT. Breath Support Breath Support At Clavicular Rest Breath Support Clavicular Sustained Phonation Breath Support Clavicular Conversation Voice Pitch Range Norms: Women (100-300 Hz) Men (70-250 Hz) Fundamental Frequency Norms: Women (Mean: 225 Hz; Range: 155-334 Hz) Men ( Mean: 128 Hz; Range: 85-196 Hz) Voice Pitch Limited Variation Voice Loudness Mildly Soft/Quiet Voice Phonatory- Harsh,Hoarse,Weak based Quality Resonance Nasal Resonance Normal Oral Resonance Normal Other Observations Progressively Weak Voice,Inadequate Breath Support Findings Findings Moderate Impairment Observations A motor speech and voice examination was administered to assess components of the pt?s motor speech system including respiration, phonation, articulation, resonance, and prosody. In addition, an oral mechanism exam was completed, and five salient features of neuromuscular function were also evaluated which include muscle strength, speech of movement, range of motion, and muscle tone. Pt also completed the Voice Handicap Index, measuring self-perception of voice. Respiration Respiration was assessed by observing the pt?s breathing during speech tasks. Breath support was adequate during reading and functional speech tasks. Phonation Loudness: decreased volume in conversation and during structured tasks. Pitch: decreased pitch range Quality: Perceptually hoarse and rough Articulation Articulation was assessed during spontaneous speech and was judged to be WNL. Resonance Hyponasality and hypernasality were assessed by having the pt repeat two sentences with and without the nares occluded. Pt?s speech presented with neither. Prosody Prosody was assessed throughout the evaluation during various speaking tasks. Pt demonstrated good ability to vary stress and intonation and imitate different stress patterns produced by the CREDIT CHECKER. Voice/Resonance Assessment Assessment Based on history and pt report, and the above-reported measures, pt presents with symptoms and signs of moderate dysphonia characterized by reduced overall vocal quality, strain, roughness, and softer volume. Pt ?s moderate dysphonia has limited her ability to speak on the phone and enjoy community events with friends. Prognosis for voice therapy to reduce suspected laryngeal tension and improve vocal fold function and efficiency appears good pending cooperation and motivation and pt compliance to the following recommendations. Recommendations are for skilled speech therapy services addressing moderate dysphonia to improve functional communication during activities of daily living, for the most independence, and the best quality of life. Pt will receive education re: vocal hygiene and be trained in exercise techniques with the goal of reducing laryngeal tension. Pt will be trained in the following: resonant voice exercises, SOVTE, stretch and flow, and diaphragmatic breathing. Recommend ENT consult for direct visualization of vocal folds (i.e. videostroboscopy). Pt agreeable and provided with handout and information for Dr. Christian in [place] per Dr. Iglesias? recommendation. Prognosis Rehabilitation Good Potential - Recommendations Treatment Yes Recommended Therapy 1x/week for 8-12 weeks Recommendations Short Term Goals 1. Patient will complete ENT consult with direct visualization of pathophysiology of larynx and vocal folds (i.e., videostroboscopy) to further assess laryngeal function and inform POC. 2. Patient will benefit from education in mechanics of voicing and tone focus in order to assist in producing resonant voice. 3. Patient will complete trained voice exercises ( including, but not limited to resonant voice exercises, SOVTE, stretch and flow, and diaphragmatic breathing) in 100% of opportunities independently in order to reduce laryngeal tension and improve vocal quality. 4. Patient will participate in daily HEP targeting vocal hoarseness to improve voice quality per patient report. Fountain Clerk Goals 1. Patient will improve overall self-perception of voice from a baseline of 45/120 on the Vocal Handicap Index (VHI) to 20/120 or lower following participation in ST skilled services. 2. Patient will report increased ability to return to baseline voice activities (e.g., singing and ability to speak for prolonged periods of time) without experiencing hoarseness following participation in ST skilled services. Referrals Referrals ENT Voice/Resonance Videostroboscopy Other Referral Patient/Caregiver Education Patient/Family Described results of evaluation,Patient Understanding Education
--- NOTE | 2025-02-02 18:58 | ST.OPPOC ---
Physical, Occupational & Speech Therapy At [facility] Visit Care Team Role Provider Type Joslyn Garner MD Family Provider Physician Primary Care Provider Address: [address] [place] [address], [address], [place], [address] Brandon Iglesias MD Attending Provider Physician Referring Provider Address: [address] [place] [address] [place], [address] Speech Pathology Plan of Care Plan of Care Dates 02/02/25-05/05/[address] Brandon Iglesias (ENT) Patient History Vilma Jones is a 79-year-old female, referred for speech therapy evaluation by Dr. Iglesias due to concerns regarding voice. Pt presented to ENT Brandon Iglesias MD, on 01/18/25 reporting increased hoarseness without known alleviating or exacerbating factors. Pt denied throat pain, GERD, or dysphagia. Results of assessment performed on that date indicated symptoms consistent with chronic dysphonia and increased phlegm in throat. Laryngoscopy or direct visualization of the vocal folds was not completed at the time, though was recommended. Voice therapy was recommended to target dysphonia. PMHx significant for skin cancer ( MOHS surgeries), tinnitus, and arthritis. Otherwise, her medical history is unremarkable. She has smoking history of about 46 years ago, drinks alcohol x2/week, and caffeine x7/week. Pt reported that she had gradual onset of voice problems about a year ago that began without any known inciting event. Voice rest does not appear to result in voice improvement, though increasing voice use results in voice decline. Currently, she has trouble speaking for more than 10-20 minutes without developing laryngeal tension and vocal fatigue and has difficulty talking on the phone. She stated the hoarseness seems to fluctuate, with some days being perfectly clear, and others being more hoarse. Pt?s primary goal is to find out what's the cause of my voice. Voice/Resonance Findings Moderate Impairment Voice/Resonance Assessment Based on history and pt report, and the above- reported measures, pt presents with symptoms and signs of moderate dysphonia characterized by reduced overall vocal quality, strain, roughness , and softer volume. Pt?s moderate dysphonia has limited her ability to speak on the phone and enjoy community events with friends. Prognosis for voice therapy to reduce suspected laryngeal tension and improve vocal fold function and efficiency appears good pending cooperation and motivation and pt compliance to the following recommendations. Recommendations are for skilled speech therapy services addressing moderate dysphonia to improve functional communication during activities of daily living, for the most independence, and the best quality of life. Pt will receive education re: vocal hygiene and be trained in exercise techniques with the goal of reducing laryngeal tension. Pt will be trained in the following: resonant voice exercises, SOVTE, stretch and flow, and diaphragmatic breathing. Recommend ENT consult for direct visualization of vocal folds (i.e. videostroboscopy). Pt agreeable and provided with handout and information for Dr. Christian in [place] per Dr. Iglesias? recommendation. Voice/Resonance Prognosis Good Voice/Resonance Yes Recommendations Therapy Recommendations 1x/week for 8-12 weeks Short Term Goals 1. Patient will complete ENT consult with direct visualization of pathophysiology of larynx and vocal folds (i.e., videostroboscopy) to further assess laryngeal function and inform POC. 2. Patient will benefit from education in mechanics of voicing and tone focus in order to assist in producing resonant voice. 3. Patient will complete trained voice exercises (including, but not limited to resonant voice exercises, SOVTE, stretch and flow, and diaphragmatic breathing) in 100% of opportunities independently in order to reduce laryngeal tension and improve vocal quality. 4. Patient will participate in daily HEP targeting vocal hoarseness to improve voice quality per patient report. Guest Services Lead Goals 1. Patient will improve overall self-perception of voice from a baseline of 45/120 on the Vocal Handicap Index (VHI) to 20/120 or lower following participation in ST skilled services. 2. Patient will report increased ability to return to baseline voice activities (e.g., singing and ability to speak for prolonged periods of time) without experiencing hoarseness following participation in ST skilled services. Comment: Electronically Signed by: BAYLEE Ramirez 02/02/25 [id number] If you are in agreement with this Plan of Care, please return a signed and dated copy. I have reviewed this Plan of Care and certify that the skilled therapy services above are required to meet the patient?s needs. Physician Signature Date Printed Name and Credentials Clinical Instructor Signature Printed Name and Credentials
--- NOTE | 2025-02-09 15:08 | ST.OPTN ---
Visit Care Team Role Provider Type Joslyn Garner MD Family Provider Physician Primary Care Provider Address: [address] [place] [address], [address], [place], [address] Brandon Iglesias MD Attending Provider Physician Referring Provider Address: [address] [place] [address] [place], [address] ASSOCIATE DIRECTOR CAREER SERVICES Treatment Note ASSOCIATE DIRECTOR CAREER SERVICES Treatment Note Start: 02/02/25 18:25 Freq: Status: Active Protocol: Document 02/09/25 14:55 SS (Rec: 02/09/25 15:08 SS Desktop) Speech Pathology Treatment Note Session Time Visit Start Time 08:55 Visit Stop Time 09:35 Total Visit Minutes 40 Visit Information Visit Number 2 Plan of Care Dates 02/02/25-05/05/25 Insurance Medicare Information Setting Treatment Setting Outpatient Care Visit Type Note Type Treatment Note Next Note Type Next Note Type Treatment Note General Information Patient History Vilma Jones is a 79-year-old female, referred for speech therapy evaluation by Dr. Iglesias due to concerns regarding voice. Pt presented to ENT Brandon Iglesias MD, on 01/18/25 reporting increased hoarseness without known alleviating or exacerbating factors. Pt denied throat pain, GERD, or dysphagia. Results of assessment performed on that date indicated symptoms consistent with chronic dysphonia and increased phlegm in throat. Laryngoscopy or direct visualization of the vocal folds was not completed at the time, though was recommended. Voice therapy was recommended to target dysphonia. PMHx significant for skin cancer (MOHS surgeries), tinnitus, and arthritis. Otherwise, her medical history is unremarkable. She has smoking history of about 46 years ago, drinks alcohol x2/week, and caffeine x7/week . Pt reported that she had gradual onset of voice problems about a year ago that began without any known inciting event. Voice rest does not appear to result in voice improvement, though increasing voice use results in voice decline. Currently, she has trouble speaking for more than 10-20 minutes without developing laryngeal tension and vocal fatigue and has difficulty talking on the phone. She stated the hoarseness seems to fluctuate, with some days being perfectly clear, and others being more hoarse. Pt?s primary goal is to find out what's the cause of my voice. Subjective Identification Type Name Observations/Patient Pt arrived to the session on time. She was engaged and Presentation motivated throughout. Objective Short Term Goals 1. Patient will complete ENT consult with direct visualization of pathophysiology of larynx and vocal folds (i.e., videostroboscopy) to further assess laryngeal function and inform POC. 2. Patient will benefit from education in mechanics of voicing and tone focus in order to assist in producing resonant voice. 3. Patient will complete trained voice exercises ( including, but not limited to resonant voice exercises, SOVTE, stretch and flow, and diaphragmatic breathing) in 100% of opportunities independently in order to reduce laryngeal tension and improve vocal quality. 4. Patient will participate in daily HEP targeting vocal hoarseness to improve voice quality per patient report. Viner Operator Goals 1. Patient will improve overall self-perception of voice from a baseline of 45/120 on the Vocal Handicap Index (VHI) to 20/120 or lower following participation in ST skilled services. 2. Patient will report increased ability to return to baseline voice activities (e.g., singing and ability to speak for prolonged periods of time) without experiencing hoarseness following participation in ST skilled services. Treatment Activities Education re: alternatives to throat clearing with implementation throughout the session. Introduced diaphragmatic breathing and resonant voice exercise targeting breath support and efficient voicing. Reviewed HEP and discussed ENT consult at the end of the session. Assessment Patient Response to Good Treatment Rehab Potential Good Impairments Voice Identified Progress Towards Good Progress Goals Assessment of Improving Overall Progress Assessment of ASSOCIATE DIRECTOR CAREER SERVICES provided education re: alternatives to throat Improvement clearing, including drinking a sip of water, holding breath and swallowing hard, and performing a ?silent? cough/throat clearing by putting a breath ahead of the cough or throat clearing. Provided handout for increased recall and understanding. Pt demonstrated good understanding of alternatives and was able to use them about half of the time when she felt the urge to clear her throat. She required verbal reminders to use techniques consistently. Recommended pt begin to implement these techniques every day in order to increase vocal hygiene and reduce risk of vocal fold abuse/misuse. Introduced diaphragmatic breathing exercise recommendation with cueing for pt to place her hand on her stomach for tactile feedback. Introduced graded inhalation exercise where pt inhales using short sniffs to reach a full breath, holds his breath for two sec, and exhales slowly for 3 sec. Pt benefited from multiple explanations of exercise and clinician modeling, but was able to complete it accurately and expressed understanding of the goal and form. Recommended pt complete reps of graded inhalation exercise daily to increase respiratory control and coordination with voice as often as she is able. Guided pt in resonant voice therapy exercises with the goal of increasing efficiency of vocal fold vibration by using a hierarchical approach and starting with /m/ in isolation. Pt instructed to place her hands on his face for tactile feedback during the humming exercise and to focus on the vibration in the front of his face with minimal effort in the throat. Pt with accurate production on second trial. Increased to syllable/word level with cueing for stretching ?m sound and use of intent. Pt production was strained and hoarse with first trial, with improved vocal quality and decrease in strain given cue to stretch /m/ and clinician modeling. She was able to produce about 50% of monosyllabic words with fully clear or very minimally hoarse vocal quality, increasing to about 75% given cueing to use ?forward voice? and take a diaphragmatic breath. Reviewed recommendation for HEP at the conclusion of the session, with pt stating understanding. She reported ENT appointments scheduled for March 07 and will discuss increased mucous in mornings as well. HEP: resonant voice humming and syllables/words, diaphragmatic breathing, alternatives to throat clearing. Pt was receptive to education and recommendations. Plan to continue to advance exercises as appropriate and introduce SOVTE next session. Continue POC at a frequency of once a week. Reviewed with Goals,Progress Being Made,Home Exercise Program Patient Patient/Caregiver Excellent Understanding Plan Amount of Therapy 3 Months Recommended Frequency of Once a Week Treatment Length of Session 30 Minutes Therapeutic Contents Client Education,Home Exercise Program,Voice Training Provided Patient/ Home Exercise Program,Plan of Care,Questions/Concerns Caregiver Instruction Therapy Continue with Current Program Recommendations Suggested Referral ENT
--- NOTE | 2025-02-16 11:50 | ST.OPTN ---
Visit Care Team Role Provider Type Joslyn Garner MD Family Provider Physician Primary Care Provider Address: [address] [place] [address], [address], [place], [address] Brandon Iglesias MD Attending Provider Physician Referring Provider Address: [address] [place] [address] [place], [address] WHEEL BORER Treatment Note WHEEL BORER Treatment Note Start: 02/02/25 18:25 Freq: Status: Active Protocol: Document 02/16/25 11:37 SS (Rec: 02/16/25 11:50 SS Desktop) Speech Pathology Treatment Note Session Time Visit Start Time 09:00 Visit Stop Time 09:35 Total Visit Minutes 35 Visit Information Visit Number 3 Plan of Care Dates 02/02/25-05/05/25 Insurance Medicare Information Setting Treatment Setting Outpatient Care Visit Type Note Type Treatment Note Next Note Type Next Note Type Treatment Note General Information Patient History Vilma Jones is a 79-year-old female, referred for speech therapy evaluation by Dr. Iglesias due to concerns regarding voice. Pt presented to ENT Brandon Iglesias MD, on 01/18/25 reporting increased hoarseness without known alleviating or exacerbating factors. Pt denied throat pain, GERD, or dysphagia. Results of assessment performed on that date indicated symptoms consistent with chronic dysphonia and increased phlegm in throat. Laryngoscopy or direct visualization of the vocal folds was not completed at the time, though was recommended. Voice therapy was recommended to target dysphonia. PMHx significant for skin cancer (MOHS surgeries), tinnitus, and arthritis. Otherwise, her medical history is unremarkable. She has smoking history of about 46 years ago, drinks alcohol x2/week, and caffeine x7/week . Pt reported that she had gradual onset of voice problems about a year ago that began without any known inciting event. Voice rest does not appear to result in voice improvement, though increasing voice use results in voice decline. Currently, she has trouble speaking for more than 10-20 minutes without developing laryngeal tension and vocal fatigue and has difficulty talking on the phone. She stated the hoarseness seems to fluctuate, with some days being perfectly clear, and others being more hoarse. Pt?s primary goal is to find out what's the cause of my voice. Subjective Identification Type Name Observations/Patient Pt arrived to the session on time. She was engaged and Presentation motivated throughout. Objective Short Term Goals 1. Patient will complete ENT consult with direct visualization of pathophysiology of larynx and vocal folds (i.e., videostroboscopy) to further assess laryngeal function and inform POC. 2. Patient will benefit from education in mechanics of voicing and tone focus in order to assist in producing resonant voice. 3. Patient will complete trained voice exercises ( including, but not limited to resonant voice exercises, SOVTE, stretch and flow, and diaphragmatic breathing) in 100% of opportunities independently in order to reduce laryngeal tension and improve vocal quality. 4. Patient will participate in daily HEP targeting vocal hoarseness to improve voice quality per patient report. [employer] Systems Programmer Goals 1. Patient will improve overall self-perception of voice from a baseline of 45/120 on the Vocal Handicap Index (VHI) to 20/120 or lower following participation in ST skilled services. 2. Patient will report increased ability to return to baseline voice activities (e.g., singing and ability to speak for prolonged periods of time) without experiencing hoarseness following participation in ST skilled services. Treatment Activities Reviewed education re: alternatives to throat clearing with implementation throughout the session. Continued implementing diaphragmatic breathing and advanced resonant voice exercise targeting breath support and efficient voicing. Reviewed HEP at the end of the session. Assessment Patient Response to Good Treatment Rehab Potential Good Impairments Voice Identified Progress Towards Good Progress Goals Assessment of Improving Overall Progress Assessment of Pt reported she continues to have difficulty Improvement implementing alternatives to throat clearing at home. Reviewed education and assisted pt in identifying preferred alternative (taking a sip of water). Pt occasionally was able to take a sip of water when feeling the urge to throat clear throughout the session , but often benefited from verbal reminders. She will benefit from continued reinforcement. Continued diaphragmatic breathing exercise recommendation with cueing for pt to place her hand on her stomach for tactile feedback. Continued to instruct in geo diaphragmatic breathing with pt tasked with inhaling slowly for 3 seconds and exhaling slowly for 5 seconds. Pt was able to complete it accurately x10 reps. Discussed ways for pt to incorporate this exercise into her daily routine to increase consistent completion daily. Guided pt in resonant voice therapy exercises with the goal of increasing efficiency of vocal fold vibration by using a hierarchical approach and starting with /m/ in isolation. Pt instructed to place her hands on his face for tactile feedback during the humming exercise and to focus on the vibration in the front of his face with minimal effort in the throat. Pt with clear production on first trial of humming and syllable/word level with cueing for stretching ?m sound and use of intent. Advanced to the phrase/sentence level. Pt production was clear about 80% of the time, increasing to 100% given cue to stretch /m/ and clinician modeling . Advanced to reading short phrases and fill-in phrases (e.g., ?hot and _?) without a focus on ?m? to begin generalization to connected speech. Pt was able to produce 75% of phrases with clear vocal quality, increasing to 90% given cueing to use ?forward voice?, take a diaphragmatic breath, and project voice. Reviewed recommendation for HEP at the conclusion of the session, with pt stating understanding. Discussed importance of completing HEP daily. Pt was able to identify everyday opportunities for her to begin to use resonant voice in order to increase carryover and generalization to connected speech, which pt was able to do. HEP: resonant voice phrase/sentence level, humming warm -up, diaphragmatic breathing, alternatives to throat clearing. Pt was receptive to education and recommendations. Plan to continue to advance exercises as appropriate and introduce SOVTE next session pending ENT consult results. Continue POC at a frequency of once a week. Reviewed with Goals,Progress Being Made,Home Exercise Program Patient Patient/Caregiver Excellent Understanding Plan Amount of Therapy 3 Months Recommended Frequency of Once a Week Treatment Length of Session 30 Minutes Therapeutic Contents Client Education,Home Exercise Program,Voice Training Provided Patient/ Home Exercise Program,Plan of Care,Questions/Concerns Caregiver Instruction Therapy Continue with Current Program Recommendations Suggested Referral ENT
--- NOTE | 2025-03-02 13:50 | ST.OPTN ---
Visit Care Team Role Provider Type Joslyn Garner MD Family Provider Physician Primary Care Provider Address: [address] [place] [address], [address], [place], [address] Brandon Iglesias MD Attending Provider Physician Referring Provider Address: [address] [place] [address] [place], [address] SYSTEM SUPPORT DEVELOPER Treatment Note SYSTEM SUPPORT DEVELOPER Treatment Note Start: 02/02/25 18:25 Freq: Status: Active Protocol: Document 03/02/25 12:55 SS (Rec: 03/02/25 13:09 SS Desktop) Speech Pathology Treatment Note Session Time Visit Start Time 12:15 Visit Stop Time 12:50 Total Visit Minutes 35 Visit Information Visit Number 4 Plan of Care Dates 02/02/25-05/05/25 Insurance Medicare Information Setting Treatment Setting Outpatient Care Visit Type Note Type Treatment Note Next Note Type Next Note Type Progress Note General Information Patient History Vilma Jones is a 79-year-old female, referred for speech therapy evaluation by Dr. Iglesias due to concerns regarding voice. Pt presented to ENT Brandon Iglesias MD, on 01/18/25 reporting increased hoarseness without known alleviating or exacerbating factors. Pt denied throat pain, GERD, or dysphagia. Results of assessment performed on that date indicated symptoms consistent with chronic dysphonia and increased phlegm in throat. Laryngoscopy or direct visualization of the vocal folds was not completed at the time, though was recommended. Voice therapy was recommended to target dysphonia. PMHx significant for skin cancer (MOHS surgeries), tinnitus, and arthritis. Otherwise, her medical history is unremarkable. She has smoking history of about 46 years ago, drinks alcohol x2/week, and caffeine x7/week . Pt reported that she had gradual onset of voice problems about a year ago that began without any known inciting event. Voice rest does not appear to result in voice improvement, though increasing voice use results in voice decline. Currently, she has trouble speaking for more than 10-20 minutes without developing laryngeal tension and vocal fatigue and has difficulty talking on the phone. She stated the hoarseness seems to fluctuate, with some days being perfectly clear, and others being more hoarse. Pt?s primary goal is to find out what's the cause of my voice. Subjective Identification Type Name Observations/Patient Pt arrived to the session on time. She was engaged and Presentation motivated throughout. Objective Short Term Goals 1. Patient will complete ENT consult with direct visualization of pathophysiology of larynx and vocal folds (i.e., videostroboscopy) to further assess laryngeal function and inform POC. 2. Patient will benefit from education in mechanics of voicing and tone focus in order to assist in producing resonant voice. 3. Patient will complete trained voice exercises ( including, but not limited to resonant voice exercises, SOVTE, stretch and flow, and diaphragmatic breathing) in 100% of opportunities independently in order to reduce laryngeal tension and improve vocal quality. 4. Patient will participate in daily HEP targeting vocal hoarseness to improve voice quality per patient report. Senior Living Goals 1. Patient will improve overall self-perception of voice from a baseline of 45/120 on the Vocal Handicap Index (VHI) to 20/120 or lower following participation in ST skilled services. 2. Patient will report increased ability to return to baseline voice activities (e.g., singing and ability to speak for prolonged periods of time) without experiencing hoarseness following participation in ST skilled services. Treatment Activities Reviewed education re: alternatives to throat clearing with implementation throughout the session. Continued implementing diaphragmatic breathing and resonant voice exercise at the word/phrase level targeting breath support and efficient voicing. Reviewed HEP at the end of the session. Assessment Patient Response to Good Treatment Rehab Potential Good Impairments Voice Identified Progress Towards Good Progress Goals Assessment of Improving Overall Progress Assessment of Pt reported increased intake of liquids to improve Improvement vocal hygiene, though she is still having difficulty recalling to use alternatives to throat clearing. She will benefit from continued reinforcement. She has been completing HEP 2-3 times a week. SYSTEM SUPPORT DEVELOPER encouraged pt to complete HEP daily and discussed strategies to do so. Pt expressed understanding. Guided pt in resonant voice therapy exercises with the goal of increasing efficiency of vocal fold vibration by using a hierarchical approach and starting with /m/ in isolation. Pt instructed to focus on the vibration in the front of her face with minimal effort in the throat. She completed resonant exercises as follows: Humming: clear production on second trial given cueing to use forward voice. Syllable level: productions were clear about 80% of the time, increasing to 100% Word level: productions were clear about 80% of the time, increasing to 100% Phrase level (naming 2-3 items given category): productions were clear 56% of the time, increasing to 87% Pt benefited from verbal cueing for stretching ?m, forward voice, and use of intent. She was able to re- attempt productions with use of strategies independently at times, but benefited from cueing in most opportunities to use strategies in order to reduce hoarseness. Reviewed recommendation for HEP at the conclusion of the session, with pt stating understanding. HEP: resonant voice phrase/sentence level, humming warm -up, diaphragmatic breathing, alternatives to throat clearing. Pt was receptive to education and recommendations. Plan to continue to advance exercises as appropriate and introduce SOVTE next session if pt completed current HEP more consistently. Plan to discuss videostroboscopy results next session as pt has ENT consult scheduled. Continue POC at a frequency of once a week. Reviewed with Goals,Progress Being Made,Home Exercise Program Patient Patient/Caregiver Excellent Understanding Plan Amount of Therapy 3 Months Recommended Frequency of Once a Week Treatment Length of Session 30 Minutes Therapeutic Contents Client Education,Home Exercise Program,Voice Training Provided Patient/ Home Exercise Program,Plan of Care,Questions/Concerns Caregiver Instruction Therapy Continue with Current Program Recommendations Suggested Referral ENT
--- NOTE | 2025-03-09 10:28 | ST.PROG ---
Visit Care Team Role Provider Type Joslyn Garner MD Family Provider Physician Primary Care Provider Address: [address] [place] [address], [address], [place], [address] Brandon Iglesias MD Attending Provider Physician Referring Provider Address: [address] [place] [address] [place], [address] WORD PROCESSOR OPERATOR Progress Note WORD PROCESSOR OPERATOR Treatment Note Start: 02/02/25 18:25 Freq: Status: Active Protocol: Document 03/09/25 10:05 SS (Rec: 03/09/25 10:27 SS Desktop) Speech Pathology Treatment Note Session Time Visit Start Time 09:00 Visit Stop Time 09:37 Total Visit Minutes 37 Visit Information Visit Number 5 Plan of Care Dates 02/02/25-05/05/25 Insurance Medicare Information Setting Treatment Setting Outpatient Care Visit Type Note Type Progress Note Next Note Type Next Note Type Treatment Note General Information Patient History Vilma Jones is a 79-year-old female, referred for speech therapy evaluation by Dr. Iglesias due to concerns regarding voice. Pt presented to ENT Brandon Iglesias MD, on 01/18/25 reporting increased hoarseness without known alleviating or exacerbating factors. Pt denied throat pain, GERD, or dysphagia. Results of assessment performed on that date indicated symptoms consistent with chronic dysphonia and increased phlegm in throat. Laryngoscopy or direct visualization of the vocal folds was not completed at the time, though was recommended. Voice therapy was recommended to target dysphonia. PMHx significant for skin cancer (MOHS surgeries), tinnitus, and arthritis. Otherwise, her medical history is unremarkable. She has smoking history of about 46 years ago, drinks alcohol x2/week, and caffeine x7/week . Pt reported that she had gradual onset of voice problems about a year ago that began without any known inciting event. Voice rest does not appear to result in voice improvement, though increasing voice use results in voice decline. Currently, she has trouble speaking for more than 10-20 minutes without developing laryngeal tension and vocal fatigue and has difficulty talking on the phone. She stated the hoarseness seems to fluctuate, with some days being perfectly clear, and others being more hoarse. Pt?s primary goal is to find out what's the cause of my voice. Subjective Identification Type Name Observations/Patient Pt arrived to the session on time. She was engaged and Presentation motivated throughout. Objective Short Term Goals 1. Patient will complete ENT consult with direct visualization of pathophysiology of larynx and vocal folds (i.e., videostroboscopy) to further assess laryngeal function and inform POC. 03/09/25: Goal met. 2. Patient will benefit from education in mechanics of voicing and tone focus in order to assist in producing resonant voice. 03/09/25: Continue goal. 3. Patient will complete trained voice exercises ( including, but not limited to resonant voice exercises, SOVTE, stretch and flow, and diaphragmatic breathing) in 100% of opportunities independently in order to reduce laryngeal tension and improve vocal quality. 03/09/25: Continue goal. 4. Patient will participate in daily HEP targeting vocal hoarseness to improve voice quality per patient report. 03/09/25: Continue goal. Automatic Buffer Goals 1. Patient will improve overall self-perception of voice from a baseline of 45/120 on the Vocal Handicap Index (VHI) to 20/120 or lower following participation in ST skilled services. 03/09/25: Continue goal. 2. Patient will report increased ability to return to baseline voice activities (e.g., singing and ability to speak for prolonged periods of time) without experiencing hoarseness following participation in ST skilled services. 03/09/25: Continue goal. Treatment Activities Reviewed results from videostroboscopy with ENT and discussed recommendations re: increased hydration and reflux management via lifestyle changes and medically if deemed appropriate by PCP. Continued implementing resonant voice exercise at the word and phrase level targeting efficient voicing and reduced breathiness. Reviewed HEP at the end of the session. Progress note completed today. Assessment Patient Response to Good Treatment Rehab Potential Good Impairments Voice Identified Progress Towards Good Progress Goals Assessment of Improving Overall Progress Assessment of Pt brought after-visit summary with ENT to appointment. Improvement Mild bowing and mildly decreased mucosal wave on both vocal folds. Anterior mild bowing and anterior gap were seen on the left vocal fold. Mild hypertrophy was seen on the right vocal fold. Glottic gap (spindle- shaped) was observed. ENT recommended increased hydration and management of suspected GERD. WORD PROCESSOR OPERATOR reviewed results with pt using visual diagram. Pt expressed understanding. Provided water intake log to increase pt?s ability to track hydration. Encouraged pt to speak with PCP re: medical management of GERD, which pt was agreeable to. WORD PROCESSOR OPERATOR left message with [facility] requesting full report be faxed to [facility]. Pt reported she has been completing diaphragmatic breathing without difficulty daily. However, she reported not completing resonant voice daily due to travel. Encouraged pt to complete HEP daily to increase habitual use of resonant voice in order to optimize vocal quality. Guided pt in resonant voice therapy exercises with the goal of increasing efficiency of vocal fold vibration by using a hierarchical approach and starting with /m/ in isolation. Pt instructed to focus on the vibration in the front of her face with minimal effort in the throat. She completed resonant exercises as follows: Humming: clear production on first trial. Syllable level: clear production 100% of the time. Word level: clear production 90% of the time, increasing to 100% given cueing to use forward voice and project. Phrase level (2-5 word functional phrases pt says daily ): productions were clear 67% of the time, increasing to 92% given cueing to use forward voice and project. Pt has been seen for 5 speech therapy visits addressing dysphonia since the start of care. She has attended at a frequency of once a week and has been motivated and engaged throughout. Pt has benefited from education re: mechanics of voicing and tone focus in order to assist in producing resonant voice. She also benefited from education re: GERD management and increased vocal hygiene (increased hydration, techniques for suppressing chronic throat clearing, etc). Implemented training in voice exercises including resonant voice therapy exercises and diaphragmatic breathing. Pt with increased auditory awareness of vocal quality and increased use of resonant voice at the word and phrase level, though continues to endorse hoarse voice at the conversation level. Pt will benefit from completing HEP more consistently to increase the gains she has made with speech therapy services. Recommend continuation of skilled speech therapy services including education re: vocal hygiene and GERD management and exercise techniques with the goal of reducing hoarseness and breathiness by optimizing vocal quality. Continue current protocol at frequency of once a week for 2-3 months. Reviewed with Goals,Progress Being Made,Home Exercise Program Patient Patient/Caregiver Excellent Understanding Plan Amount of Therapy 3 Months Recommended Frequency of Once a Week Treatment Length of Session 30 Minutes Therapeutic Contents Client Education,Home Exercise Program,Voice Training Provided Patient/ Home Exercise Program,Plan of Care,Questions/Concerns Caregiver Instruction Therapy Continue with Current Program Recommendations Suggested Referral Primary Care Physician Other Referrals GERD management Visit Care Team Role Provider Type Joslyn Garner MD Family Provider Physician Primary Care Provider Specialty: Family Practice Address: [facility] [place], [address] Email: [email or web address] Brandon Iglesias MD Attending Provider Physician Referring Provider Specialty: Ear, Nose, Throat Address: [address] [place] [address], [address] Email: [email or web address]
--- NOTE | 2025-03-23 10:38 | ST.OPTN ---
Visit Care Team Role Provider Type Joslyn Garner MD Family Provider Physician Primary Care Provider Address: [address] [place] [address], [address], [place], [address] Brandon Iglesias MD Attending Provider Physician Referring Provider Address: [address] [place] [address] [place], [address] TOP SPOTTER Treatment Note TOP SPOTTER Treatment Note Start: 02/02/25 18:25 Freq: Status: Active Protocol: Document 03/23/25 10:20 SS (Rec: 03/23/25 10:37 SS Desktop) Speech Pathology Treatment Note Session Time Visit Start Time 09:45 Visit Stop Time 10:20 Total Visit Minutes 35 Visit Information Visit Number 6 Plan of Care Dates 02/02/25-05/05/25 Insurance Medicare Information Setting Treatment Setting Outpatient Care Visit Type Note Type Treatment Note Next Note Type Next Note Type Treatment Note General Information Patient History Vilma Jones is a 79-year-old female, referred for speech therapy evaluation by Dr. Iglesias due to concerns regarding voice. Pt presented to ENT Brandon Iglesias MD, on 01/18/25 reporting increased hoarseness without known alleviating or exacerbating factors. Pt denied throat pain, GERD, or dysphagia. Results of assessment performed on that date indicated symptoms consistent with chronic dysphonia and increased phlegm in throat. Laryngoscopy or direct visualization of the vocal folds was not completed at the time, though was recommended. Voice therapy was recommended to target dysphonia. PMHx significant for skin cancer (MOHS surgeries), tinnitus, and arthritis. Otherwise, her medical history is unremarkable. She has smoking history of about 46 years ago, drinks alcohol x2/week, and caffeine x7/week . Pt reported that she had gradual onset of voice problems about a year ago that began without any known inciting event. Voice rest does not appear to result in voice improvement, though increasing voice use results in voice decline. Currently, she has trouble speaking for more than 10-20 minutes without developing laryngeal tension and vocal fatigue and has difficulty talking on the phone. She stated the hoarseness seems to fluctuate, with some days being perfectly clear, and others being more hoarse. Pt?s primary goal is to find out what's the cause of my voice. Subjective Identification Type Name Observations/Patient Pt arrived to the session on time. She was engaged and Presentation motivated throughout. Objective Short Term Goals 1. Patient will complete ENT consult with direct visualization of pathophysiology of larynx and vocal folds (i.e., videostroboscopy) to further assess laryngeal function and inform POC. 03/09/25: Goal met. 2. Patient will benefit from education in mechanics of voicing and tone focus in order to assist in producing resonant voice. 03/09/25: Continue goal. 3. Patient will complete trained voice exercises ( including, but not limited to resonant voice exercises, SOVTE, stretch and flow, and diaphragmatic breathing) in 100% of opportunities independently in order to reduce laryngeal tension and improve vocal quality. 03/09/25: Continue goal. 4. Patient will participate in daily HEP targeting vocal hoarseness to improve voice quality per patient report. 03/09/25: Continue goal. Reaming Machine Tender Goals 1. Patient will improve overall self-perception of voice from a baseline of 45/120 on the Vocal Handicap Index (VHI) to 20/120 or lower following participation in ST skilled services. 03/09/25: Continue goal. 2. Patient will report increased ability to return to baseline voice activities (e.g., singing and ability to speak for prolonged periods of time) without experiencing hoarseness following participation in ST skilled services. 03/09/25: Continue goal. Treatment Activities Continued education re: vocal hygiene, including increased hydration, reflux management, and alternatives to chronic throat clearing. Continued implementing resonant voice exercise at the phrase level targeting efficient voicing and reduced breathiness. Advanced to the conversation level. Reviewed HEP at the end of the session and discussed progress. Assessment Patient Response to Good Treatment Rehab Potential Good Impairments Voice Identified Progress Towards Good Progress Goals Assessment of Improving Overall Progress Assessment of TOP SPOTTER facilitated a discussion regarding vocal quality Improvement since the previous session. The pt reported intermittent hoarseness but noted several consecutive days of clear voice. She continues to complete her HEP approximately 3?4 times per week, though not yet on a daily basis. The pt reported improved hydration, now averaging 6?7 glasses of water per day. She remains hesitant to fully implement the GERD management strategies recommended by ENT. However, she has been consistently sitting upright after meals and sleeping with her head elevated. During the session, the TOP SPOTTER addressed increased throat clearing and reviewed alternative strategies, including dry swallowing, sipping water, gentle/silent coughing, and relaxed exhalation. The pt demonstrated understanding and benefited from consistent cueing to apply these strategies throughout the session, as her in the moment awareness remains limited. Resonant Voice was implemented to promote efficient vocal fold vibration using a hierarchical approach, beginning with /m/ in isolation. The pt was instructed to focus on forward resonance with minimal throat effort. She produced humming and /m/ words with clear vocal quality in 100% of opportunities. At the functional phrase level, accuracy was 90%, reflecting improvement from previous sessions. Resonant voice techniques were then implemented at the conversational level, where the pt maintained clear voice approximately 50% of the time. She benefited from cueing to maintain forward focus, project with intent, and incorporate diaphragmatic breathing to support phonation and reduce laryngeal tension. Overall, the pt demonstrates good progress in implementing resonant voice techniques at the phrase/ sentence and conversational levels. Continued skilled intervention is recommended to support carryover, increase self-awareness, and reinforce vocal hygiene strategies to reduce phonotraumatic behaviors and promote long-term vocal health. Reviewed recommendation for HEP at the conclusion of the session, with pt stating understanding. Pt was receptive to education and recommendations. Plan to continue to advance exercises as appropriate. Continue POC at a frequency of once a week. Reviewed with Goals,Progress Being Made,Home Exercise Program Patient Patient/Caregiver Excellent Understanding Plan Amount of Therapy 3 Months Recommended Frequency of Once a Week Treatment Length of Session 30 Minutes Therapeutic Contents Client Education,Home Exercise Program,Voice Training Provided Patient/ Home Exercise Program,Plan of Care,Questions/Concerns Caregiver Instruction Therapy Continue with Current Program Recommendations
--- NOTE | 2025-04-06 10:39 | ST.PROG ---
Visit Care Team Role Provider Type Joslyn Garner MD Family Provider Physician Primary Care Provider Address: [address] [place] [address], [address], [place], [address] Brandon Iglesias MD Attending Provider Physician Referring Provider Address: [address] [place] [address] [place], [address] MEASUREMENT PSYCHOLOGIST Progress Note MEASUREMENT PSYCHOLOGIST Treatment Note Start: 02/02/25 18:25 Freq: Status: Active Protocol: Document 04/06/25 10:24 SS (Rec: 04/06/25 10:39 SS [email or web address]) Speech Pathology Treatment Note Session Time Visit Start Time 09:45 Visit Stop Time 10:20 Total Visit Minutes 35 Visit Information Visit Number 7 Plan of Care Dates 02/02/25-05/05/25 Insurance Medicare Information Setting Treatment Setting Outpatient Care Visit Type Note Type Progress Note Next Note Type Next Note Type Treatment Note General Information Patient History Vilma Jones is a 79-year-old female, referred for speech therapy evaluation by Dr. Iglesias due to concerns regarding voice. Pt presented to ENT Brandon Iglesias MD, on 01/18/25 reporting increased hoarseness without known alleviating or exacerbating factors. Pt denied throat pain, GERD, or dysphagia. Results of assessment performed on that date indicated symptoms consistent with chronic dysphonia and increased phlegm in throat. Laryngoscopy or direct visualization of the vocal folds was not completed at the time, though was recommended. Voice therapy was recommended to target dysphonia. PMHx significant for skin cancer (MOHS surgeries), tinnitus, and arthritis. Otherwise, her medical history is unremarkable. She has smoking history of about 46 years ago, drinks alcohol x2/week, and caffeine x7/week . Pt reported that she had gradual onset of voice problems about a year ago that began without any known inciting event. Voice rest does not appear to result in voice improvement, though increasing voice use results in voice decline. Currently, she has trouble speaking for more than 10-20 minutes without developing laryngeal tension and vocal fatigue and has difficulty talking on the phone. She stated the hoarseness seems to fluctuate, with some days being perfectly clear, and others being more hoarse. Pt?s primary goal is to find out what's the cause of my voice. Subjective Identification Type Name Observations/Patient Pt arrived to the session on time. She was engaged and Presentation motivated throughout. Objective Short Term Goals 1. Patient will complete ENT consult with direct visualization of pathophysiology of larynx and vocal folds (i.e., videostroboscopy) to further assess laryngeal function and inform POC. 03/09/25: Goal met. 2. Patient will benefit from education in mechanics of voicing and tone focus in order to assist in producing resonant voice. 03/09/25: Continue goal. 04/06/25: Continue goal. Pt has difficulty implementing resonant voice beyond the word level. Will benefit from continued reinforcement to use resonant voice during everyday speech. 3. Patient will complete trained voice exercises ( including, but not limited to resonant voice exercises, SOVTE, stretch and flow, and diaphragmatic breathing) in 100% of opportunities independently in order to reduce laryngeal tension and improve vocal quality. 03/09/25: Continue goal. 04/06/25: Continue goal. Pt is completing exercises in session, but benefits from cueing for correct form. 4. Patient will participate in daily HEP targeting vocal hoarseness to improve voice quality per patient report. 03/09/25: Continue goal. 04/06/25: Continue goal. Pt not yet completing HEP daily. Intermediate Goals 1. Patient will improve overall self-perception of voice from a baseline of 45/120 on the Vocal Handicap Index (VHI) to 20/120 or lower following participation in ST skilled services. 03/09/25: Continue goal. 04/06/25: Continue goal. 2. Patient will report increased ability to return to baseline voice activities (e.g., singing and ability to speak for prolonged periods of time) without experiencing hoarseness following participation in ST skilled services. 03/09/25: Continue goal. 04/06/25: Continue goal. Treatment Activities Implemented SOVTE straw phonation. Continued implementing resonant voice exercise at the phrase level targeting efficient voicing and reduced hoarseness. Reviewed HEP at the end of the session and discussed progress. Progress note completed today. Assessment Patient Response to Good Treatment Rehab Potential Good Impairments Voice Identified Progress Towards Good Progress Goals Assessment of Improving Overall Progress Assessment of MEASUREMENT PSYCHOLOGIST facilitated discussion re: vocal quality since Improvement previous session and completion of HEP. Pt reported her voice has been clear in the afternoons, though more hoarse in thee mornings. Suspect this is due to GERD/ LPR and encouraged pt to implement previously discussed strategies to reduce laryngeal irritation. Additionally, encouraged pt to complete HEP every day in the mornings as a vocal warm-up, as she has been completing HEP inconsistently. Pt expressed understanding. Semi-Occluded Vocal Tract Exercise (SOVTE) straw phonation implemented with the goal of improving balance among the subsystems by increasing vocal tract inertance, resulting in a more efficient voice, and reducing hyperfunction. Instructed pt in initially blowing through the straw into a cup of water with no voice, increasing to 50% voice and 50% air, and advancing to pitch glides and singing. Pt demonstrated ability to do so following MEASUREMENT PSYCHOLOGIST model. May introduce cup phonation or straw phonation without water depending on progress with this exercise at home. Resonant Voice was implemented to promote efficient vocal fold vibration using a hierarchical approach, beginning with /m/ in isolation. The pt was instructed to focus on forward resonance with minimal throat effort. She produced humming, /m/ syllables, and /m/ words with clear vocal quality in 100% of opportunities . She was able to read sentences with clear vocal quality in 785 of opportunities, increasing to 100% given MEASUREMENT PSYCHOLOGIST modeling of resonant voice and verbal cueing to use ?forward voice?. Pt then identified phrases that she says daily to target carryover to connected speech . She produced 75% of the phrases with vocal quality, increasing to 100% given MEASUREMENT PSYCHOLOGIST modeling and verbal cueing . Reviewed recommendation for HEP at the conclusion of the session, with pt stating motivation to complete. Pt was receptive to education and recommendations today. Pt has attended 2 treatment sessions since the last progress note and has missed several sessions due to her schedule. She continues to benefit from education re: mechanics of voicing and tone focus in order to assist in producing resonant voice, GERD management, and increased vocal hygiene (increased hydration, techniques for suppressing chronic throat clearing) to reduce behaviors that may result in phonotrauma. She continues to progress with voice exercises including resonant voice and SOVTE. She will benefit from continued treatment targeting use of resonant voice at the conversation level and consistent completion of voice exercises. Recommend continuation of skilled speech therapy services with the goal of reducing hoarseness and optimizing vocal quality. Continue current protocol at frequency of once a week for 2-3 months. Reviewed with Goals,Progress Being Made,Home Exercise Program Patient Patient/Caregiver Excellent Understanding Plan Amount of Therapy 3 Months Recommended Frequency of Once a Week Treatment Length of Session 30 Minutes Therapeutic Contents Client Education,Home Exercise Program,Voice Training Provided Patient/ Home Exercise Program,Plan of Care,Questions/Concerns Caregiver Instruction Therapy Continue with Current Program Recommendations Visit Care Team Role Provider Type Joslyn Garner MD Family Provider Physician Primary Care Provider Specialty: Family Practice Address: [address] [place] [address], [address] Email: [email or web address] Brandon Iglesias MD Attending Provider Physician Referring Provider Specialty: Ear, Nose, Throat Address: [address] [place] [address], [address] Email: [email or web address]
--- NOTE | 2025-04-24 10:42 | ST.OPDS ---
Visit Care Team Role Provider Type Joslyn Garner MD Family Provider Physician Primary Care Provider Address: [address] [place] [address], [address], [place], [address] Brandon Iglesias MD Attending Provider Physician Referring Provider Address: [address] [place] [address] [place], [address] LONG TERM CARE PHARMACIST Treatment Note LONG TERM CARE PHARMACIST Treatment Note Start: 02/02/25 18:25 Freq: Status: Active Protocol: Document 04/24/25 10:28 SS (Rec: 04/24/25 10:42 SS [email or web address]) Speech Pathology Treatment Note Session Time Visit Start Time 09:00 Visit Stop Time 09:42 Total Visit Minutes 42 Visit Information Visit Number 8 Plan of Care Dates 02/02/25-05/05/25 Insurance Medicare Information Setting Treatment Setting Outpatient Care Visit Type Note Type Discharge Summary General Information Patient History Vilma Jones is a 79-year-old female, referred for speech therapy evaluation by Dr. Iglesias due to concerns regarding voice. Pt presented to ENT Brandon Iglesias MD, on 01/18/25 reporting increased hoarseness without known alleviating or exacerbating factors. Pt denied throat pain, GERD, or dysphagia. Results of assessment performed on that date indicated symptoms consistent with chronic dysphonia and increased phlegm in throat. Laryngoscopy or direct visualization of the vocal folds was not completed at the time, though was recommended. Voice therapy was recommended to target dysphonia. PMHx significant for skin cancer (MOHS surgeries), tinnitus, and arthritis. Otherwise, her medical history is unremarkable. She has smoking history of about 46 years ago, drinks alcohol x2/week, and caffeine x7/week . Pt reported that she had gradual onset of voice problems about a year ago that began without any known inciting event. Voice rest does not appear to result in voice improvement, though increasing voice use results in voice decline. Currently, she has trouble speaking for more than 10-20 minutes without developing laryngeal tension and vocal fatigue and has difficulty talking on the phone. She stated the hoarseness seems to fluctuate, with some days being perfectly clear, and others being more hoarse. Pt?s primary goal is to find out what's the cause of my voice. Subjective Identification Type Name Observations/Patient Pt arrived to the session on time. She was engaged and Presentation motivated throughout. Objective Short Term Goals 1. Patient will complete ENT consult with direct visualization of pathophysiology of larynx and vocal folds (i.e., videostroboscopy) to further assess laryngeal function and inform POC. 03/09/25: Goal met. 2. Patient will benefit from education in mechanics of voicing and tone focus in order to assist in producing resonant voice. 03/09/25: Continue goal. 04/06/25: Continue goal. Pt has difficulty implementing resonant voice beyond the word level. Will benefit from continued reinforcement to use resonant voice during everyday speech. 11:04/08: Goal not met. Pt with good understanding of mechanics, though not yet utilizing outside of treatment sessions. 3. Patient will complete trained voice exercises ( including, but not limited to resonant voice exercises, SOVTE, stretch and flow, and diaphragmatic breathing) in 100% of opportunities independently in order to reduce laryngeal tension and improve vocal quality. 03/09/25: Continue goal. 04/06/25: Continue goal. Pt is completing exercises in session, but benefits from cueing for correct form. 04/24/25: Goal not met. Pt is completing exercises in session, but benefits from cueing for correct form. 4. Patient will participate in daily HEP targeting vocal hoarseness to improve voice quality per patient report. 03/09/25: Continue goal. 04/06/25: Continue goal. Pt not yet completing HEP daily. 04/24/25: Goal not met. Pt not yet completing HEP daily . 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 Patient will improve overall self-perception of voice from a baseline of 45/120 on the Vocal Handicap Index (VHI) to 20/120 or lower following participation in ST skilled services. 03/09/25: Continue goal. 04/06/25: Continue goal. 04/24/25: Goal not met. (22/120 as of today). 2. Patient will report increased ability to return to baseline voice activities (e.g., singing and ability to speak for prolonged periods of time) without experiencing hoarseness following participation in ST skilled services. 03/09/25: Continue goal. 04/06/25: Continue goal. 04/24/25: Goal not met. Pt continues to endorse hoarseness, though with reduced severity when using resonanat voice and following SOVTE exercises. Treatment Activities Implemented SOVTE straw phonation. Continued implementing resonant voice exercise at the sentence level targeting efficient voicing and reduced hoarseness. Reviewed HEP at the end of the session and discussed progress. Continued education re: importance of GERD management. Discharge completed today. Assessment Patient Response to Good Treatment Rehab Potential Good Impairments Voice Identified Progress Towards Good Progress Goals Assessment of Improving Overall Progress Assessment of LONG TERM CARE PHARMACIST facilitated discussion re: vocal quality since Improvement previous session and completion of HEP. Pt reported voice continues to sound better later in day, though has not followed up yet with PCP re; GERD management. She has been completing straw phonation every day, but is not yet implementing resonant voice consistently. Again discussed ways to incorporate exercises into daily routine and everyday speaking opportunities, with pt expressing understanding. Discussed POC given inconsistent attendance and difficulty adhering to HEP. Pt expressed she plans to follow up with PCP re; GERD management, but would like to discharge from speech therapy due to the time commitment. Semi-Occluded Vocal Tract Exercise (SOVTE) straw phonation implemented with the goal of improving balance among the subsystems by increasing vocal tract inertance, resulting in a more efficient voice, and reducing hyperfunction. Instructed pt in initially blowing through the straw into a cup of water with no voice, increasing to 50% voice and 50% air, and advancing to pitch glides and singing. Pt demonstrated ability to do so following LONG TERM CARE PHARMACIST model. She reported ?my voice feels a little bit better? following the exercise . This was consistent with LONG TERM CARE PHARMACIST observations as vocal quality was clear. Resonant Voice was implemented to promote efficient vocal fold vibration using a hierarchical approach, beginning with /m/ in isolation. The pt was instructed to focus on forward resonance with minimal throat effort. She produced humming, /m/ syllables, and /m/ words with clear vocal quality in all opportunities. She was able to read sentences with clear vocal quality in about 60% of opportunities, increasing to 90% following cueing. She benefited from verbal cueing to use ?forward voice? to reduce laryngeal tension. Pt has been seen for 8 speech therapy visits addressing dysphonia since the start of care. She has attended inconsistently due to other priorities, but has been motivated and engaged throughout during sessions. Treatment has included training in voice exercises including Semi-occluded Vocal Tract Exercise (SOVTE) straw phonation and resonant voice therapy exercises. LONG TERM CARE PHARMACIST provided education re: alternatives ot chronic throat clearing and GERD management. Pt has benefited from education re: form and goal of the exercises and LONG TERM CARE PHARMACIST cueing and modeling during the exercises. Since the start of care, pt has improved in self-perception of voice to a current perception of 22/120, though continues to endorse mildly hoarse voice. Pt has been completing HEP practice, though not daily for maximal gains. Pt continues to present with dysphonia but has expressed satisfaction with the overall quality of her voice. Pt plans to continue competing her HEP a few times a week to maintain the gains she had made with speech therapy services. She also plans to follow-up with PCP re: GERD management. The plan is to discharge the pt from speech therapy services. Recommend she request a referral from her PCP if she notes changes with her voice would like to resume treatment. Pt agreeable to plan. Reviewed with Goals,Progress Being Made,Home Exercise Program Patient Patient/Caregiver Excellent Understanding Plan Amount of Therapy No Further Therapy Recommended Frequency of No Further Therapy Treatment Therapeutic Contents Client Education,Home Exercise Program,Voice Training Provided Patient/ Home Exercise Program,Plan of Care,Questions/Concerns Caregiver Instruction Therapy Discharge to Home Exercise Program,Discharge from Recommendations Speech Therapy
== END 2025-04-24 13:08 | disposition home or self-care (01) ==
LOC: SP 09:00
PROVIDERS: Family Provider Family Medicine; PCP Family Medicine; Referring Provider Otolaryngology; Visit Provider Otolaryngology
DX: R49.0 Dysphonia (principal); R09.89 Other specified symptoms and signs involving the circulatory and respiratory systems
CPT/HCPCS: 92507; 92524

== ENCOUNTER → 2025-05-22 08:49 | Outpatient (CLI) | payer MEDICARE, BC, SELFPAY ==
--- NOTE | 2025-05-22 08:51 | DI.RAD.S_ITS ---
PROCEDURE: FL UPPER GI SERIES INDICATIONS: laryngitis COMPARISON: [facility], CT, CT ABDOMEN PELVIS W CON, 05/23/2022, 15:28. FINDINGS: Preprocedural scout sniper film is unremarkable. Esophagus: Esophageal mucosa is normal on air-contrast views. On single- contrast views, there is diminished esophageal peristalsis. There is intra esophageal reflux. Mild delayed esophageal clearing in the upright position. Delayed esophageal clearing in the prone position. No strictures, extrinsic mass effects, or diverticula. Small sliding-type hiatal hernia. Spontaneous and elicited gastroesophageal reflux. Reflux visualized extending up into the upper esophagus. There is normal transit of a calibrated barium tablet through the esophagus. Stomach: The stomach is normally distensible, with normal rugal fold thickness. No mucosal masses or ulcers. Pylorus and duodenal bulb appear normal in morphology. Duodenal folds are normal in thickness as well. IMPRESSION: 1. [id number] esophageal dysmotility. 2. Severe gastroesophageal reflux. 3. Small sliding-type hiatal hernia. Dictated by: Jairon Woo M.D. on 05/22/2025 at 10:16 Approved by: Jairon Woo M.D. on 05/22/2025 at 10:24
== END ==
LOC: RAD 08:50
PROVIDERS: Family Provider Family Medicine; PCP Family Medicine; Referring Provider Family Medicine; Visit Provider Family Medicine
DX: K21.00 Gastro-esophageal reflux disease with esophagitis, without bleeding (principal); J04.0 Acute laryngitis; K22.4 Dyskinesia of esophagus; K44.9 Diaphragmatic hernia without obstruction or gangrene
CPT/HCPCS: 74240